=== PATIENT | male | born 1965 | race Two or more races ===

== ENCOUNTER 2020-07-27 07:07 | Inpatient (IN) | payer MEDICAID ==
[~2020-07-27] VITALS: Ht 170.2 cm; Wt 83.9 kg
[2020-07-27] MEDS ORDERED: Metoprolol Tartrate 5mg/5ml Inj IVP ONE (07:15)
--- NOTE | 2020-07-27 07:22 | Emergency Room Report ---
History of Present Illness General Chief Complaint: Chest Pain Source: Patient Present Illness HPI Patient presents with chest pain that began yesterday. In addition he is feeling palpitations. He is previously had metoprolol and aspirin but was told to stop the metoprolol. When he exerts himself he feels palpitations. In addition he has an implanted defibrillator that has been firing. He sees red when this happens. He denies any syncope. He rates the pain 7/10 at this time. He poorly describes the pain in his chest. He denies it being sharp or like a charley horse. The patient tested negative for Covid many months ago. He is uncertain whether he has been in contact with Covid positive people. Patient denies fevers or chills. He occasionally has a cough. Denies sore throat. There is no nausea or vomiting. He has had diarrhea after eating chicken that he said was not good. This was several days ago. The patient's been seen here in the past for alcohol intoxication. Patient denies suicidal or homicidal ideation. No dysuria, abdominal pain, shortness of breath, joint pain, rashes, depression, anxiety, visual changes, dizziness, headache. 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 COVID-19 Screening: Negative COVID-19 COVID-19 Testing Source: unknown Patient History Past Medical History: see triage record Past Surgical History: pacemaker - Defibrillator Social History: Reports: smoking, alcohol use - beer Social History Narrative homeless Reviewed Nursing Documentation: PMH: Agreed; PSxH: Agreed Nursing Documentation-PMH Past Medical History: No Stated History Hx Cardiac Problems: Yes - ICD Hx Hypertension: Yes Hx Diabetes: Yes Review of Systems All Other Systems: negative except mentioned in HPI Physical Exam Vital Signs Date Time Temp Pulse Resp B/P (MAP) Pulse Ox O2 Delivery O2 Flow Rate FiO2 07/27/20 07:03 98.2 140 18 118/54 (75) 95 Room Air Sp02 EP Interpretation: reviewed, normal General Appearance: no apparent distress, GCS 15, other - Disheveled Head: normocephalic, atraumatic Eyes: bilateral eye normal inspection, bilateral eye PERRL, bilateral eye EOMI ENT: moist mucus membranes Neck: supple Respiratory: lungs clear, normal breath sounds Cardiovascular #1: no edema, tachycardia Cardiovascular #2: 2+ radial (R) Gastrointestinal: normal inspection, normal bowel sounds, non tender, no mass, non-distended, overweight Genitourinary: no CVA tenderness Musculoskeletal: back normal, normal range of motion Neurologic: alert, oriented x3, grossly normal Psychiatric: mood/affect normal Skin: no rash, warm/dry Procedures Critical Care Time Critical Care Time Total Critical Care Time: 35 min bedside evaluation and treatment excludes procedures (EKG). Reason for critical care: Atrial fibrillation rapid ventricular response, non- STEMI, hyperkalemia, repeat evaluations Possible complications: hypotension, hypertension, DC, shock, arrhythmias, metabolic acidosis, end organ damage, respiratory failure. Interventions: Metoprolol, potassium, repeat evaluations Course: Patient presented with chest pain and palpitations with atrial fibrillation with rapid ventricular response. Aspirin was administered in the field. Metoprolol given for rate control. Called with elevated troponin. Lovenox administered. Patient reevaluated. Patient states pain is gone with treatment of rapid heart rate and Lovenox. Increase level of care. Contact and discuss with admitting physician. Consultations: nursing staff, EMS, admitting physician Performed by: Dr. Ambrose Tolerated well condition = serious Medical Decision Making Diagnostic Impression: Primary Impression: Atrial fibrillation with RVR Additional Impressions: NSTEMI (non-ST elevated myocardial infarction) Hypokalemia Leukocytosis, unspecified ER Course Patient presents with chest pain and palpitations with firing of his implanted defibrillator. Differential includes atrial fibrillation rapid ventricular response, other arrhythmia, acute myocardial infarction amongst others. Patient evaluated with EKG, chest x-ray and labs. Patient placed on a division chief. Based on EMS EKG the patient has atrial fibrillation with rapid ventricular response and has not been taking metoprolol. Metoprolol is ordered with IV to control the rate. EKG atrial fibrillation rapid ventricular response with rates of 140 and occasional PVC and PAC. No acute injury. Chest x-ray poor inspiration with possible venous congestion. Potassium low. Elevated BNP. Urine tox positive for benzodiazepines. Potassium administered. After metoprolol heart rate 105 with occasional PVCs. Blood pressure 106/76. White blood count elevated 15.7. Called for elevated troponin. Lovenox ordered. Patient states pain gone. 800 Patient clinically improved but needs increased to stepdown unit with positive troponin. Laboratory Tests Test 07/27/20 07:15 07/27/20 08:36 07/27/20 14:15 07/27/20 16:45 White Blood Count 15.7 K/UL (4.8-10.8) H Red Blood Count 4.48 M/UL (4.70-6.10) L Hemoglobin 14.3 G/DL (14.2-18.0) Hematocrit 42.2 % (42.0-52.0) Mean Corpuscular Volume 94 FL (80-99) Mean Corpuscular Hemoglobin 32.0 PG (27.0-31.0) H Mean Corpuscular Hemoglobin Concent 34.0 G/DL (32.0-36.0) Red Cell Distribution Width 13.0 % (11.6-14.8) Platelet Count 78 K/UL (150-450) L Mean Platelet Volume 8.8 FL (6.5-10.1) Neutrophils (%) (Auto) % (45.0-75.0) Lymphocytes (%) (Auto) % (20.0-45.0) Monocytes (%) (Auto) % (1.0-10.0) Eosinophils (%) (Auto) % (0.0-3.0) Basophils (%) (Auto) % (0.0-2.0) Differential Total Cells Counted 100 Neutrophils % (Manual) 74 % (45-75) Lymphocytes % (Manual) 7 % (20-45) L Monocytes % (Manual) 5 % (1-10) Eosinophils % (Manual) 0 % (0-3) Basophils % (Manual) 0 % (0-2) Band Neutrophils 14 % (0-8) H Platelet Estimate Decreased L Platelet Morphology Normal Red Blood Cell Morphology Normal Prothrombin Time 12.7 SEC (9.30-11.50) H Prothrombin Time INR 1.2 (0.9-1.1) H Activated Partial Thromboplast Time 30 SEC (23-33) Sodium Level 132 MMOL/L (136-145) L Potassium Level 3.0 MMOL/L (3.5-5.1) L Chloride Level 97 MMOL/L (98-107) L Carbon Dioxide Level 24 MMOL/L (21-32) Anion Gap 11 mmol/L (5-15) Blood Urea Nitrogen 14 mg/dL (7-18) Creatinine 0.8 MG/DL (0.55-1.30) Estimated Glomerular Filtration Rate > 60 mL/min (>60) Glucose Level 144 MG/DL (74-106) H Calcium Level 8.8 MG/DL (8.5-10.1) Total Bilirubin 1.0 MG/DL (0.2-1.0) Aspartate Amino Transferase (AST) 73 U/L (15-37) H Alanine Aminotransferase (ALT) 38 U/L (12-78) Alkaline Phosphatase 71 U/L (46-116) Total Creatine Kinase 990 U/L (26-308) H Troponin I 2.966 ng/mL (0.000-0.056) 2.806 ng/mL (0.000-0.056) C-Reactive Protein, Quantitative 11.7 mg/dL (0.00-0.90) H Pro-B-Type Natriuretic Peptide 19723 pg/mL (0-125) H Total Protein 7.1 G/DL (6.4-8.2) Albumin 3.1 G/DL (3.4-5.0) L Globulin 4.0 g/dL Albumin/Globulin Ratio 0.8 (1.0-2.7) L Serum Alcohol < 3 mg/dL Urine Color Yellow Urine Appearance Clear Urine pH 6 (4.5-8.0) Urine Specific Stevenson 1.020 (1.005-1.035) Urine Protein 2+ (NEGATIVE) H Urine Glucose (UA) Negative (NEGATIVE) Urine Ketones 3+ (NEGATIVE) H Urine Blood 3+ (NEGATIVE) H Urine Nitrite Negative (NEGATIVE) Urine Bilirubin Negative (NEGATIVE) Urine Urobilinogen 4 MG/DL (0.0-1.0) H Urine Leukocyte Esterase 1+ (NEGATIVE) H Urine RBC 0-2 /HPF (0 - 0) H Urine WBC 0-2 /HPF (0 - 0) Urine Squamous Epithelial Cells Occasional /LPF Urine Bacteria Occasional /HPF (NONE) Urine Hyaline Casts 0-2 /LPF (NONE) H Urine Mucus Few /LPF (NONE/OCC) H Urine Opiates Screen Negative (NEGATIVE) Urine Barbiturates Screen Negative (NEGATIVE) Phencyclidine (PCP) Screen Negative (NEGATIVE) Urine Amphetamines Screen Negative (NEGATIVE) Urine Benzodiazepines Screen Positive (NEGATIVE) H Urine Cocaine Screen Negative (NEGATIVE) Urine Marijuana (THC) Screen Negative (NEGATIVE) Arterial Blood pH 7.405 (7.350-7.450) Arterial Blood Partial Pressure CO2 30.3 mmHg (35.0-45.0) L Arterial Blood Partial Pressure O2 208.2 mmHg (75.0-100.0) H Arterial Blood HCO3 18.6 mmol/L (22.0-26.0) L Arterial Blood Oxygen Saturation 99.3 % (95-100) Arterial Blood Base Excess -4.7 (-2-2) L Ted Test Positive Test 07/27/20 17:00 Activated Partial Thromboplast Time 30 SEC (23-33) D-Dimer > 35.20 mg/L FEU Microbiology Date/Time Source Procedure Growth Status 07/27/20 09:05 Nasopharynx SARS-CoV-2 Antigen (Rapid)([facility]) - Final Complete EKG Diagnostic Results Rate: tachycardiac Rhythm: other - Atrial fibrillation ST Segments: no acute changes Rhythm Strip Diag. Results EP Interpretation: yes Rhythm: other - Atrial fibrillation rapid ventricular response with PAC and PVC Chest X-Ray Diagnostic Results Chest X-Ray Diagnostic Results : Chest X-Ray Ordered: Yes # of Views/Limited/Complete: 1 View Indication: Chest Pain EP Interpretation: Yes Interpretation: no effusion, no pneumothorax, other - poor inspiration/defib, inc mcwilliams Impression: Other Electronically Signed by: Electronically signed by Nato Ambrose MD Last Vital Signs Date Time Temp Pulse Resp B/P (MAP) Pulse Ox O2 Delivery O2 Flow Rate FiO2 07/27/20 17:18 60 28 97 Non-Rebreather 15.0 100 07/27/20 16:33 190/87 07/27/20 16:00 99.0 Status: improved Disposition: ADMITTED INPATIENT Condition: Serious Nato Ambrose MD Jul 27, 2020 07:22
[2020-07-27 07:26] LABS: HEMATOCRIT 42.2 % (42.0-52.0); HEMOGLOBIN 14.3 G/DL (14.2-18.0); MEAN CORPUSCULAR VOLUME 94 FL (80-99); PLATELET COUNT 78 K/UL (150-450); RED BLOOD COUNT 4.48 M/UL (4.70-6.10); WHITE BLOOD COUNT 15.7 K/UL (4.8-10.8)
[2020-07-27 07:41] LABS: ANION GAP 11 mmol/L (5-15); BLOOD UREA NITROGEN 14 mg/dL (7-18); CALCIUM 8.8 MG/DL (8.5-10.1); CARBON DIOXIDE 24 MMOL/L (21-32); CHLORIDE 97 MMOL/L (98-107); CREATININE 0.8 MG/DL (0.55-1.30); SODIUM 132 MMOL/L (136-145)
[2020-07-27 07:50] LABS: INR 1.2 (0.9-1.1)
[2020-07-27 07:53] LABS: ALANINE AMINOTRANSFERASE 38 U/L (12-78); ALBUMIN 3.1 G/DL (3.4-5.0); ALBUMIN/GLOBULIN RATIO 0.8 (1.0-2.7); ALKALINE PHOSPHATASE 71 U/L (46-116); ASPARTATE AMINO TRANSFERASE 73 U/L (15-37); CREATINE KINASE 990 U/L (26-308)
[2020-07-27] MEDS ORDERED: Enoxaparin 80mg Inj SUBQ ONE (08:00)
--- NOTE | 2020-07-27 08:29 | NUR ---
Patient presents to the ER with chest pain and palpitations that began yesterday. Diaphoretic, AAOX4. He currently takes Metoprolol and Aspirin but was recently told to stop taking his Metoprolol. He reports palpitations on exertion. He has an implanted defibrillator that has been firing x 2 days.
[2020-07-27 09:04] VITALS: BP 122/80
[2020-07-27 09:26] LABS: APPEARANCE,URINE CLEAR; BILIRUBIN, URINE NEGATIVE (NEGATIVE); GLUCOSE, URINE (UA) NEGATIVE (NEGATIVE); KETONES,URINE 3+ (NEGATIVE); LEUKOCYTE ESTERASE ,URINE 1+ (NEGATIVE); NITRITE,URINE NEGATIVE (NEGATIVE); PH,URINE 6 (4.5-8.0); PROTEIN,URINE 2+ (NEGATIVE); UROBILINOGEN,URINE 4 MG/DL (0.0-1.0)
[2020-07-27 09:41] LABS: COLOR,URINE YELLOW
[2020-07-27] MEDS ORDERED: ASPIRIN81 MG ORAL (11:05)
--- NOTE | 2020-07-27 11:55 | NUR ---
Report called in to [facility]
--- NOTE | 2020-07-27 12:30 | NUR ---
NURSE NOTES: Received patient from [facility] Waterman. Patient is AO x4. On NC 2L satting at 97%. Vs BP 136/93, HR 120, Temp 98.2, Resp 21. traffic monitor specialist in place showing Afib with RVR. No pain or discomfort noted at this time. Bed in lowest position, locked with side rails x2 up. Call light within reach.
--- NOTE | 2020-07-27 15:31 | Diagnostic Imaging Report ---
Indication: Chest pain Technique: One view of the chest Comparison: 10/24/2015 Findings: Heart is enlarged. There is a left chest AICD. There is bilateral interstitial edema. Impression: Cardiomegaly with evidence of congestive heart failure
[2020-07-27 16:00] VITALS: BP 200/140
[2020-07-27] MEDS ORDERED: Nitroglycerin Subl 0.4mg tab SL PRN (16:15)
[2020-07-27] MEDS ORDERED: Digoxin 0.5mg/2ml Inj IVP SCH (16:15)
[2020-07-27] MEDS: Metoprolol Tartrate 50mg tab ORAL SCH ×2 (16:33→21:00)
[2020-07-27] MEDS ORDERED: Racemic EPINEPHrine 2.25% 0.5ml HHN SCH (17:15)
--- NOTE | 2020-07-27 17:18 | NUR ---
Respiratory note: Called to the room by RN due to PT having increased WOB. PT was found on NRB mask on 15 Lpm / 100% with a saturation of 100%. ABG was drawn. PO2 was in the 200 range. Tried to place PT on 14 L 55% venturi but PT continued to desaturate down to 87%. Placed Pt on NRB mask. At this time stridor was noticed and requested charge nurse to order Racemic Epi. Racemic was given via HHN. Stridor improved but Pt continued with increased WOB and is now vomiting. Saturation is WNL. HR:120. RR: 25 Will continue to monitor.
[2020-07-27] MEDS: Solu-MEDROL 125mg Inj IVP SCH ×2 (17:24→22:59)
--- NOTE | 2020-07-27 17:30 | NUR ---
NURSE NOTES: patient noted with elevated BP 200/140 and elevated heart rate 170. AUDREY Huggins notified with new order of hydralazine IVP and Dig IVP.
--- NOTE | 2020-07-27 17:41 | Cardiology Report ---
APPROVED REPORT EKG Measurement Heart [id number] <Conclusion> Atrial fibrillation with rapid ventricular response with premature ventricular or aberrantly conducted complexes Nonspecific T wave abnormality Abnormal ECG
--- NOTE | 2020-07-27 17:44 | History and Physical Report ---
DATE OF ADMISSION: 07/27/2020 HISTORY OF PRESENT ILLNESS: The patient is a 54-year-old obese male came probably straight and was short of breath and was found tachycardic. Also, alcohol intoxication, hypokalemia, and non-STEMI. The patient's heart rate is still high and he also is short of breath. He is sitting in the bed and critically sick. I am ordering ABG. PAST MEDICAL HISTORY: Significant for the patient taking aspirin, does not remember his medical history. MEDICATIONS: Currently, he is on aspirin, Tylenol, Plavix, digoxin, Lasix, hydralazine, losartan, methylprednisone, metoprolol, nitroglycerin. ALLERGIES: NKA. FAMILY HISTORY: Noncontributory. SOCIAL HISTORY: the patient is most likely homeless. PHYSICAL EXAMINATION: VITAL SIGNS: Blood pressure is high 190/87, pulse 150. HEENT: Eyes are open. NECK: Supple. CHEST: Bilaterally scattered wheezing and crackles. CARDIOVASCULAR: Irregular rhythm, tachycardia. ABDOMEN: Soft. Positive bowel sounds. Nontender. EXTREMITIES: No edema. GENITOURINARY: Deferred. LABORATORY DATA: White count 16,000, hemoglobin 14, hematocrit 42, platelets 78,000. Chemistry panel, sodium 132, potassium 3, BUN 14, creatinine 0.8. Troponin is 2.966 to 2.806. BNP was 2008. C-reactive protein 11.7. Chest x-ray showing cardiomegaly with evidence of congestive heart failure. ASSESSMENT: 1. Chest pain. 2. CHF. 3. Hypertension. 4. Tachycardia. PLAN: We will admit the patient in [facility]. Continue metoprolol. Continue Plavix, aspirin, Lipitor, and losartan. Give him Solu-Medrol and added Lasix. Added digoxin. Consider Pulmonary and Cardiology consult. Also ordering ABG. Hang Luis M.D. DR: LIAT JOB#: [id number] CC:
--- NOTE | 2020-07-27 17:50 | NUR ---
NURSE NOTES: Patient heart rate still 170 and BP went down to 160/70 at this time, Arlen Bess notified with new stat ekg order and Lasix IVP. 20 mg IV push cardizem ordered by Arlen bess.
[2020-07-27] MEDS ORDERED: dilTIAZem HCl 25mg/5ml Inj IVP SCH ×2 (18:15→18:45)
--- NOTE | 2020-07-27 18:20 | NUR ---
NURSE NOTES: Patient d-dimer noted at >35.20. Stat CTA was ordered by AUDREY bess, noted and carried out.
[2020-07-27] MEDS ORDERED: Omnipaque 350 100ml vial INJ PRN (18:45)
--- NOTE | 2020-07-27 19:30 | NUR ---
NURSE NOTES: Rn received report from Victor Manuel RIVERS. Patient in bed resting. Patient states that he doesnt feel well. patient is having bouts of n/v. RN advised provider and no orders given. Patient vitals stable at this time. RN will continue to monitor.
--- NOTE | 2020-07-27 19:36 | NUR ---
NURSE HAND-OFF REPORT: Important Events on Shift:Patient heart rate in the 180's and bp's >180 Patient Status: Stable Diet: 2gm low NA diet Pending Orders: NA Pending Results/Labs:NA Pending notification:NA Latest Vital Signs: Temperature 99.0 , Pulse 145 , B/P 150 /60 , Respiratory Rate 28 , O2 SAT 97 , Nasal Cannula, O2 Flow Rate 15.0 . Vital Sign Comment: Stable EKG Rhythm: Atrial Fibrillation Rhythm change?: N MD Notified?: Leena Huggins MD Response: Latest Ryan Fall Score: 35 Fall Risk: Medium Risk Safety Measures: Call light Within Reach, Bed Alarm Zone 1, Side Rails Side Rails x2, Bed position Low and Locked. Fall Precautions: Yellow Socks Report given to TITA Talley.
--- NOTE | 2020-07-27 19:50 | Diagnostic Imaging Report ---
EXAM: CT Angiography Chest With Intravenous Contrast CLINICAL HISTORY: PE TECHNIQUE: Axial computed tomographic angiography images of the chest with intravenous contrast. CTDI is 71.3 mGy and DLP is 395.7 mGy-cm. One or more of the following dose reduction techniques were used: automated exposure control, adjustment of the mA and/or kV according to patient size, use of iterative reconstruction technique. MIP reconstructed images were created and reviewed. COMPARISON: Chest x-ray of 07/27/2020. FINDINGS: Pulmonary arteries: No central pulmonary embolism. Peripheral branch of the pulmonary arteries are unremarkable. Aorta: Thoracic aorta is unremarkable. No thoracic aortic aneurysm. Lungs: Evaluation of the pulmonary parenchyma reveals patchy confluent airspace disease worrisome for atypical pneumonia such as Covid-19 pneumonia. No mass. Pleural space: Unremarkable. No significant effusion. No pneumothorax. Heart: Cardiomegaly. No significant pericardial effusion. No evidence of RV dysfunction. Thyroid: The thyroid gland is unremarkable. Bones/joints: No acute fracture. No dislocation. Soft tissues: Unremarkable. Lymph nodes: Unremarkable. No enlarged lymph nodes. Liver: Fatty liver. IMPRESSION: 1. No pulmonary embolism. 2. Cardiomegaly. 3. Patchy airspace disease bilaterally suggestive of atypical pneumonia such as Covid-19 pneumonia.
[2020-07-27 20:00] VITALS: BP 142/78
--- NOTE | 2020-07-27 20:45 | NUR ---
NURSE NOTES: RN received CTA results to rule out PE. Rn notified Arlen VENTURA with cardiology of results. patient negative for PE. Orders given to start Amiodarone gtt. for afib control transfer to ICU and give x1 dose of Lasix 40mg IVP. Orders readback. RN will continue to monitor.
[2020-07-27] MEDS: Losartan 50mg tab ORAL SCH (21:00)
[2020-07-27] MEDS: Enoxaparin 80mg Inj SUBQ SCH (21:24)
--- NOTE | 2020-07-27 21:45 | NUR ---
NURSE HAND-OFF REPORT: Patient being transferred to ICU for AMIO GTT for afib/rate control. Orders given and excuted. Report to Beverly. Latest Vital Signs: Temperature 97.2 , Pulse 111 , B/P 142 /78 , Respiratory Rate 32 , O2 SAT 92 , Nasal Cannula, O2 Flow Rate 15.0 . Vital Sign Comment: EKG Rhythm: Atrial Fibrillation Rhythm change?: N Notified?: Leena Huggins MD Response: Latest Ryan Fall Score: 35 Fall Risk: Medium Risk Safety Measures: Call light Within Reach, Bed Alarm Zone 1, Side Rails Side Rails x2, Bed position Low and Locked. Fall Precautions: Patient Fall Education Report given to Beverly .
[2020-07-27 22:00] VITALS: BP 98/68
[2020-07-27] MEDS ORDERED: Amiodarone 900 MG in D5W 500ml 482 ML IV SCH (22:00)
--- NOTE | 2020-07-27 22:00 | NUR ---
NURSE NOTES: Received patient in bed with eyes open, AOx4 A-fib on the monitor with HR 109. NRB 15L at this time, Sats 95%, Patient noted to be tachypneic, When asked patient denies any SOB. Left FA IV Saline lock. Patient complaining of nausea, denies any chest pain at this time. Uses urinal to void and bed hugo upon request. Bedside teaching done about the importance of staying in bed and using the call light. Bed in lowest position, side rails up x2, bed alarm on. Will continue with plan of care.
--- NOTE | 2020-07-27 22:15 | NUR ---
NURSE NOTES: Called and spoke with MD Huggins. Notified her patient is now in the ICU. HR 103-109 A-fib SBP 98/56. MD ordered to hold Amio Bolus and Amio gtt at this time. Updated MD 2100 Cardiac Meds have been on hold, Patient not on bi-pap at this time due to Nausea and vomiting. 3rd Troponin processing no result, Asked her if she wants to be called with next troponin level she said no. Ordered to keep patient in ICU for overnight monitoring.
--- NOTE | 2020-07-27 22:29 | Consultation ---
History of Present Illness General Chief Complaint: Chest Pain Present Illness HPI 54 yo male admitted for SOB and found to be in afib with RVR, NSTEMI with troponin elevation. Pt is homeless and has a hx of substance abuse, smoking, ETOH. No documented hx of UT or PCI, pt not on blood thinners, unclear if he's had afib in the past. BNP severely elevated. Pt c/o N/V, SOB, denies acute chest pain. Started on Bb, nitro, ASA, Lovenox. Transferred to ICU due to respiratory failure and worsening clinical picture. Allergies: Coded Allergies: No Known Allergies (Unverified , 10/24/15) Medication History Scheduled Aspirin* (Aspirin*), 81 MG ORAL DAILY, (Reported) Patient History Limited by: medical condition History Provided By: Medical Record Healthcare decision maker Resuscitation status Advanced Directive on File Physical Exam Last 24 Hour Vital Signs Date Time Temp Pulse Resp B/P (MAP) Pulse Ox O2 Delivery O2 Flow Rate FiO2 07/27/20 20:00 97.2 111 32 142/78 (99) 92 07/27/20 20:00 15.0 07/27/20 20:00 Non-Rebreather 15.0 07/27/20 18:49 145 150/60 07/27/20 18:14 160 160/70 07/27/20 17:18 60 28 97 Non-Rebreather 15.0 100 07/27/20 17:18 97 Non-Rebreather 15.0 100 07/27/20 17:18 60 25 94 Non-Rebreather 15.0 100 60 28 97 07/27/20 16:33 150 190/87 07/27/20 16:24 200/140 07/27/20 16:18 170 07/27/20 16:18 200/140 07/27/20 16:00 Non-Rebreather 15.0 07/27/20 16:00 99.0 160 25 200/140 (160) 99 07/27/20 16:00 160 07/27/20 16:00 15.0 07/27/20 14:12 91 16 98 Nasal Cannula 3.0 32 07/27/20 14:12 98 Nasal Cannula 3.0 32 07/27/20 13:03 Nasal Cannula 2.0 07/27/20 11:13 99.4 24 122/80 98 Nasal Cannula 2.0 98 2/16/21 09:04 99.4 24 122/80 98 Nasal Cannula 07/27/20 09:04 112 24 Nasal Cannula 2.0 98 07/27/20 07:30 112 122/80 07/27/20 07:03 98.2 140 18 118/54 (75) 95 Room Air Laboratory Tests Test 07/27/20 07:15 07/27/20 08:36 07/27/20 14:15 07/27/20 16:45 White Blood Count 15.7 K/UL (4.8-10.8) H Red Blood Count 4.48 M/UL (4.70-6.10) L Hemoglobin 14.3 G/DL (14.2-18.0) Hematocrit 42.2 % (42.0-52.0) Mean Corpuscular Volume 94 FL (80-99) Mean Corpuscular Hemoglobin 32.0 PG (27.0-31.0) H Mean Corpuscular Hemoglobin Concent 34.0 G/DL (32.0-36.0) Red Cell Distribution Width 13.0 % (11.6-14.8) Platelet Count 78 K/UL (150-450) L Mean Platelet Volume 8.8 FL (6.5-10.1) Neutrophils (%) (Auto) % (45.0-75.0) Lymphocytes (%) (Auto) % (20.0-45.0) Monocytes (%) (Auto) % (1.0-10.0) Eosinophils (%) (Auto) % (0.0-3.0) Basophils (%) (Auto) % (0.0-2.0) Differential Total Cells Counted 100 Neutrophils % (Manual) 74 % (45-75) Lymphocytes % (Manual) 7 % (20-45) L Monocytes % (Manual) 5 % (1-10) Eosinophils % (Manual) 0 % (0-3) Basophils % (Manual) 0 % (0-2) Band Neutrophils 14 % (0-8) H Platelet Estimate Decreased L Platelet Morphology Normal Red Blood Cell Morphology Normal Prothrombin Time 12.7 SEC (9.30-11.50) H Prothromb Time International Ratio 1.2 (0.9-1.1) H Activated Partial Thromboplast Time 30 SEC (23-33) Sodium Level 132 MMOL/L (136-145) L Potassium Level 3.0 MMOL/L (3.5-5.1) L Chloride Level 97 MMOL/L (98-107) L Carbon Dioxide Level 24 MMOL/L (21-32) Anion Gap 11 mmol/L (5-15) Blood Urea Nitrogen 14 mg/dL (7-18) Creatinine 0.8 MG/DL (0.55-1.30) Estimat Glomerular Filtration Rate > 60 mL/min (>60) Glucose Level 144 MG/DL (74-106) H Calcium Level 8.8 MG/DL (8.5-10.1) Total Bilirubin 1.0 MG/DL (0.2-1.0) Aspartate Amino Transf (AST/SGOT) 73 U/L (15-37) H Alanine Aminotransferase (ALT/SGPT) 38 U/L (12-78) Alkaline Phosphatase 71 U/L (46-116) Total Creatine Kinase 990 U/L (26-308) H Troponin I 2.966 ng/mL (0.000-0.056) 2.806 ng/mL (0.000-0.056) C-Reactive Protein, Quantitative 11.7 mg/dL (0.00-0.90) H Pro-B-Type Natriuretic Peptide 56597 pg/mL (0-125) H Total Protein 7.1 G/DL (6.4-8.2) Albumin 3.1 G/DL (3.4-5.0) L Globulin 4.0 g/dL Albumin/Globulin Ratio 0.8 (1.0-2.7) L Serum Alcohol < 3 mg/dL Urine Color Yellow Urine Appearance Clear Urine pH 6 (4.5-8.0) Urine Specific Bl[place] 1.020 (1.005-1.035) Urine Protein 2+ (NEGATIVE) H Urine Glucose (UA) Negative (NEGATIVE) Urine Ketones 3+ (NEGATIVE) H Urine Blood 3+ (NEGATIVE) H Urine Nitrite Negative (NEGATIVE) Urine Bilirubin Negative (NEGATIVE) Urine Urobilinogen 4 MG/DL (0.0-1.0) H Urine Leukocyte Esterase 1+ (NEGATIVE) H Urine RBC 0-2 /HPF (0 - 0) H Urine WBC 0-2 /HPF (0 - 0) Urine Squamous Epithelial Cells Occasional /LPF Urine Bacteria Occasional /HPF (NONE) Urine Hyaline Casts 0-2 /LPF (NONE) H Urine Mucus Few /LPF (NONE/OCC) H Urine Opiates Screen Negative (NEGATIVE) Urine Barbiturates Screen Negative (NEGATIVE) Phencyclidine (PCP) Screen Negative (NEGATIVE) Urine Amphetamines Screen Negative (NEGATIVE) Urine Benzodiazepines Screen Positive (NEGATIVE) H Urine Cocaine Screen Negative (NEGATIVE) Urine Marijuana (THC) Screen Negative (NEGATIVE) Arterial Blood pH 7.405 (7.350-7.450) Arterial Blood Partial Pressure CO2 30.3 mmHg (35.0-45.0) L Arterial Blood Partial Pressure O2 208.2 mmHg (75.0-100.0) H Arterial Blood HCO3 18.6 mmol/L (22.0-26.0) L Arterial Blood Oxygen Saturation 99.3 % (95-100) Arterial Blood Base Excess -4.7 (-2-2) L Ted Test Positive Test 07/27/20 17:00 07/27/20 21:20 Activated Partial Thromboplast Time 30 SEC (23-33) D-Dimer > 35.20 mg/L FEU Troponin I 3.301 ng/mL (0.000-0.056) Microbiology Date/Time Source Procedure Growth Status 07/27/20 09:05 Nasopharynx SARS-CoV-2 Antigen (Rapid)([facility]) - Final Complete Height (Feet): 5 Height (Inches): 7.00 Weight (Pounds): 185 Medications Current Medications Medications (Trade) Dose Ordered Sig/Evan Route PRN Reason Start Time Stop Time Status Last Admin Dose Admin Acetaminophen (Tylenol) 650 mg Q4H PRN ORAL Mild Pain (Pain Scale 1-3) 07/27/20 13:30 08/26/20 13:29 Amiodarone HCl 900 mg/Dextrose 500 ml @ 0 mls/hr Q24H IV 07/27/20 22:00 07/28/20 21:59 Aspirin (ASA) 81 mg DAILY ORAL 07/28/20 09:00 09/11/20 08:59 Atorvastatin Calcium (Lipitor) 80 mg BEDTIME ORAL 07/27/20 21:00 10/25/20 20:59 Chlordiazepoxide (Librium) 25 mg EVERY 8 HOURS ORAL 07/27/20 22:00 08/03/20 21:59 Clopidogrel Bisulfate (Plavix) 75 mg DAILY ORAL 07/28/20 09:00 08/27/20 08:59 Enoxaparin Sodium (Lovenox) 80 mg EVERY 12 HOURS SUBQ 07/27/20 21:00 10/25/20 20:59 07/27/20 21:24 Furosemide (Lasix) 40 mg DAILY IV 07/27/20 16:15 08/26/20 16:14 07/27/20 16:24 Hydralazine HCl (Apresoline) 20 mg Q6H PRN IV For High Blood Pressure 07/27/20 16:15 10/25/20 16:14 07/27/20 16:18 Iohexol (Omnipaque 350 100ml) 100 ml NOW PRN INJ Radiology Procedure 07/27/20 18:45 07/29/20 18:44 Losartan Potassium (Cozaar) 50 mg EVERY 12 HOURS ORAL 07/27/20 21:00 08/26/20 20:59 Methylprednisolone Sodium Succinate (Solu-MEDROL) 80 mg EVERY 8 HOURS IVP 07/27/20 16:45 10/25/20 16:44 07/27/20 17:24 Metoprolol Tartrate (Lopressor) 50 mg Q12HR ORAL 07/27/20 16:15 10/25/20 16:14 07/27/20 16:33 Nitroglycerin (Ntg) 0.4 mg Q5M PRN SL Prn Chest Pain 07/27/20 16:15 08/26/20 16:14 07/27/20 16:24 Thiamine HCl (Vitamin B1) 100 mg DAILY ORAL 07/28/20 09:00 08/27/20 08:59 Assessment/Plan Status Narrative 1. NSTEMI with troponin elevation Echo pending ASA and Lovenox 2. Afib with RVR Bb and digoxin for rate and rhythm control 3. Respiratory failure - on NRB BiPAP pending as needed 4. CHF with fluid overload IV Lasix for diuresis BNP elevated echo pending 5. HTN and hypertensive urgency Losartan 6. Hx of substance abuse 7. Psychiatric disorder and homelessness 8. N/V Trend troponin, started Bb for rate control, echo pending. Rate responded to Bb, digoxin, and Cardizem IV push. Lovenox for AC in the setting of afib and acute NSTEMI. Denies chest pain at this time. Further recs to follow clinical progress. Arlen Huggins PA-C Jul 27, 2020 22:29
--- NOTE | 2020-07-27 22:40 | NUR ---
NURSE NOTES: Patient noted to have Episode of Loose BM. Assisted patient with bed hugo. Patient complaining of abdominal discomfort and Nausea
--- NOTE | 2020-07-27 22:44 | NUR ---
NURSE NOTES: Called and spoke with MD Luis, Informed him patient is complaining of Nausea at this time. Ordered Zofran 4mg Q4hr for nausea. Orders read back and confirmed by
[2020-07-27] MEDS: Atorvastatin 80mg tab ORAL SCH (22:59)
[2020-07-27] MEDS: chlordiazePOXIDE 25mg Cap ORAL SCH (22:59)
--- NOTE | 2020-07-27 22:59 | NUR ---
NURSE NOTES: Patient able to tolerate PO meds at this time. Zofran given for Nausea. Instructed patient to call and use call light if he feels nauseas again or needs bedpan.
[2020-07-27 23:00] VITALS: BP 117/65
[2020-07-28] VITALS (23 sets, daily range): BP systolic 87–144; BP diastolic 49–90
--- NOTE | 2020-07-28 00:30 | NUR ---
NURSE NOTES: Patient Sleeping at this time, Controlled A-fib on the monitor. Patient noted to self reposition when walking into the room. Denies any nausea at this time. Bed in lowest position, side rails upx3.
--- NOTE | 2020-07-28 02:00 | NUR ---
NURSE NOTES: Patient noted to desaturate. NRB off. Bedside teaching done about the importance of keeping mask on. Patient asked for cup of water. Encouraged patient to turn and repositioned.
--- NOTE | 2020-07-28 04:30 | NUR ---
NURSE NOTES: Patient titrated off NRB. Now on 14L, 55% now. Sats 97%
[2020-07-28 04:32] LABS: HEMATOCRIT 42.4 % (42.0-52.0); MEAN CORPUSCULAR VOLUME 95 FL (80-99); PLATELET COUNT 65 K/UL (150-450); RED BLOOD COUNT 4.44 M/UL (4.70-6.10); RED CELL DISTRIBUTION WIDTH 13.1 % (11.6-14.8)
[2020-07-28 04:54] LABS: ANION GAP 10 mmol/L (5-15); BLOOD UREA NITROGEN 15 mg/dL (7-18); CALCIUM 8.7 MG/DL (8.5-10.1); CARBON DIOXIDE 25 MMOL/L (21-32); CHLORIDE 98 MMOL/L (98-107); CREATININE 0.8 MG/DL (0.55-1.30); POTASSIUM 3.6 MMOL/L (3.5-5.1); SODIUM 133 MMOL/L (136-145)
--- NOTE | 2020-07-28 05:30 | NUR ---
NURSE NOTES: Patient awake at this time. Morning meds given. Patient continues to be SOB when moving in bed. Denies any chest pain, nausea or vomiting. Venturi mask now at 45%.
[2020-07-28] MEDS: chlordiazePOXIDE 25mg Cap ORAL SCH ×3 (05:34→21:55)
[2020-07-28] MEDS: Solu-MEDROL 125mg Inj IVP SCH (05:34)
--- NOTE | 2020-07-28 06:23 | NUR ---
CASE MANAGEMENT:REVIEW 54 YR OLD MALE BIBA FROM STREET CC: CHEST PAIN. AICD HAS BEEN FIRING PMH: AICD SI: AFIB W/RVR. NSTEMI 98.2 140 18 118/54 95% ON RA WBC+15.7 PLT-78 K-3.0 TCK+990 BNP+99320 TROPONIN(+) 2.966-2.806-3.301 IS: IV METOPROLOL IV DIGOXIN IV CARDIZEM KCL PO LOVENOX SQ CXR EKG : TO ICU
--- NOTE | 2020-07-28 07:27 | NUR ---
NURSE HAND-OFF REPORT: Latest Vital Signs: Temperature 98.1 , Pulse 115 , B/P 144 /70 , Respiratory Rate 28 , O2 SAT 97 , Nasal Cannula, O2 Flow Rate 14.0 . Vital Sign Comment: EKG Rhythm: Atrial Fibrillation Rhythm change?: N Notified?: Leena Huggins MD Response: Latest Ryan Fall Score: 35 Fall Risk: Medium Risk Safety Measures: Call light Within Reach, Bed Alarm Zone 1, Side Rails Side Rails x2, Bed position Low and Locked. Fall Precautions: Patient Fall Education Report given to Payal RIVERS.
--- NOTE | 2020-07-28 07:28 | NUR ---
NURSE NOTES: Received patient in bed with eyes open, AOx4 A-fib on the monitor with HR 119. On venturi mask FiO2 45%, Sats 99%, Patient noted to be tachypneic, When asked patient denies any SOB. Left FA IV Saline lock. Patient complaining of nausea, denies any chest pain at this time. Uses urinal to void and bed hugo upon request. Bedside teaching done about the importance of staying in bed and using the call light. Bed in lowest position, side rails up x2, bed alarm on. Will continue with plan of care.
--- NOTE | 2020-07-28 08:18 | NUR ---
NURSE NOTES: 2D echo is being done at bedside.
[2020-07-28] MEDS: Enoxaparin 80mg Inj SUBQ SCH ×2 (09:00→20:47)
[2020-07-28] MEDS: Aspirin Baby 81mg ORAL SCH (09:00)
[2020-07-28] MEDS ORDERED: Digoxin 0.5mg/2ml Inj IVP SCH ×2 (09:15→17:48)
[2020-07-28] MEDS: Losartan 50mg tab ORAL SCH ×2 (09:28→21:00)
[2020-07-28] MEDS: Thiamine 100mg tab ORAL SCH (09:28)
--- NOTE | 2020-07-28 09:39 | General Progress Note ---
Subjective Constitutional: Reports: fever, malaise HEENT: Reports: no symptoms Cardiovascular: Reports: palpitations Respiratory: Reports: orthopnea, shortness of breath Gastrointestinal/Abdominal: Reports: no symptoms Allergies: Coded Allergies: No Known Allergies (Unverified , 10/24/15) Subjective doing better more awake Objective Last 24 Hour Vital Signs Date Time Temp Pulse Resp B/P (MAP) Pulse Ox O2 Delivery O2 Flow Rate FiO2 07/28/20 09:28 139/75 07/28/20 08:00 Venturi Mask 07/28/20 08:00 129 29 139/75 (96) 92 07/28/20 07:30 124 07/28/20 07:00 119 30 127/69 (88) 96 07/28/20 06:00 115 28 144/70 (94) 97 07/28/20 05:00 109 28 144/77 (99) 99 07/28/20 04:40 97 Venturi Mask 14.0 55 07/28/20 04:00 Non-Rebreather 15.0 07/28/20 04:00 15.0 07/28/20 04:00 98.1 111 25 130/89 (103) 98 07/28/20 04:00 96 07/28/20 03:00 113 28 123/61 (81) 97 07/28/20 02:00 103 24 118/78 (91) 94 07/28/20 01:00 101 22 87/49 (62) 97 07/28/20 00:00 15.0 07/28/20 00:00 98.2 103 25 119/60 (79) 98 07/28/20 00:00 Non-Rebreather 15.0 07/28/20 00:00 96 07/27/20 23:00 105 24 117/65 (82) 95 07/27/20 22:00 98.1 106 32 98/68 (78) 99 07/27/20 21:49 102 07/27/20 21:00 88/49 07/27/20 21:00 97 88/49 07/27/20 20:00 97.2 111 32 142/78 (99) 92 07/27/20 20:00 15.0 07/27/20 20:00 Non-Rebreather 15.0 07/27/20 18:49 145 150/60 07/27/20 18:14 160 160/70 07/27/20 17:18 60 28 97 Non-Rebreather 15.0 100 07/27/20 17:18 97 Non-Rebreather 15.0 100 07/27/20 17:18 60 25 94 Non-Rebreather 15.0 100 60 28 97 07/27/20 16:33 150 190/87 07/27/20 16:24 200/140 07/27/20 16:18 170 07/27/20 16:18 200/140 07/27/20 16:00 Non-Rebreather 15.0 07/27/20 16:00 99.0 160 25 200/140 (160) 99 07/27/20 16:00 160 07/27/20 16:00 15.0 07/27/20 14:12 91 16 98 Nasal Cannula 3.0 32 07/27/20 14:12 98 Nasal Cannula 3.0 32 07/27/20 13:03 Nasal Cannula 2.0 07/27/20 11:13 99.4 24 122/80 98 Nasal Cannula 2.0 98 Intake and Output 07/27/20 07/28/20 19:00 07:00 Intake Total 2600 ml 720 ml Output Total 940 ml Balance 2600 ml -220 ml Intake Oral 600 ml 720 ml IV Total 2000 ml Output Urine Total 640 ml Stool Total 300 ml # Bowel Movements 2 Laboratory Tests 07/27/20 14:15: Troponin I 2.806H 07/27/20 16:45: Arterial Blood pH 7.405, Arterial Blood Partial Pressure CO2 30.3L, Arterial Blood Partial Pressure O2 208.2H, Arterial Blood HCO3 18.6L, Arterial Blood Oxygen Saturation 99.3, Arterial Blood Base Excess -4.7L, Ted Test Positive 07/27/20 17:00: Activated Partial Thromboplast Time 30, D-Dimer > 35.20H 07/27/20 21:20: Troponin I 3.301H 07/28/20 04:00: White Blood Count 14.0H, Red Blood Count 4.44L, Hemoglobin 14.0L, Hematocrit 42.4, Mean Corpuscular Volume 95, Mean Corpuscular Hemoglobin 31.6H, Mean Corpuscular Hemoglobin Concent 33.1, Red Cell Distribution Width 13.1, Platelet Count 65L, Mean Platelet Volume 10.9H, Neutrophils (%) (Auto) , Lymphocytes (%) (Auto) , Monocytes (%) (Auto) , Eosinophils (%) (Auto) , Basophils (%) (Auto) , Differential Total Cells Counted 100, Neutrophils % (Manual) 68, Lymphocytes % (Manual) 3L, Monocytes % (Manual) 2, Eosinophils % (Manual) 0, Basophils % (Manual) 0, Band Neutrophils 27H, Platelet Estimate DecreasedL, Platelet Morphology Normal, Red Blood Cell Morphology Normal, Sodium Level 133L, Potassium Level 3.6, Chloride Level 98, Carbon Dioxide Level 25, Anion Gap 10, Blood Urea Nitrogen 15, Creatinine 0.8, Estimat Glomerular Filtration Rate > 60, Glucose Level 146H, Calcium Level 8.7, Digoxin Level [Pending] Height (Feet): 5 Height (Inches): 7.00 Weight (Pounds): 185 General Appearance: alert EENT: PERRL/EOMI Neck: supple Cardiovascular: tachycardia Respiratory/Chest: crackles/rales Abdomen: non tender, soft Extremities: non-tender Assessment/Plan Assessment/Plan: sob afib pna chf etoh abused pna iv abx iv sterids librium admited in icu Kadeem Luis MD Jul 28, 2020 09:39
[2020-07-28] MEDS: Metoprolol Tartrate 50mg tab ORAL SCH ×4 (10:10→23:40)
--- NOTE | 2020-07-28 10:15 | NUR ---
NURSE NOTES: Dr. Guajardo at bedside. Made aware that Dr. Luis ordered covid-19 PCR test, and that patient is now to be in PUI isolation.
--- NOTE | 2020-07-28 11:14 | Consultation ---
DATE OF CONSULTATION: 07/28/2020 INFECTIOUS DISEASES CONSULTATION CONSULTING PHYSICIAN: Tuan Guajardo MD REFERRING PHYSICIAN: Kadeem Luis MD REASON FOR CONSULTATION: Pneumonia. HISTORY OF PRESENT ILLNESS: This is a 54-year-old gentleman with history of hypertension who comes in with shortness of breath along with fevers and cough. He was found to have atrial fibrillation with rapid ventricular rate and pneumonia. An Infectious Diseases consultation has been obtained for antibiotics. PAST MEDICAL HISTORY: History of hypertension. SOCIAL HISTORY: He does not smoke. He drinks alcohol. No history of drug use. FAMILY HISTORY: Noncontributory. REVIEW OF SYSTEMS: RESPIRATORY: He has fever and chills. He has cough. He has shortness of breath. No chest pain. CARDIAC: No chest pain. No palpitation. No dizziness. No syncope. GASTROINTESTINAL: He has nausea. No vomiting. No abdominal pain or diarrhea. MUSCULOSKELETAL: He has headache and body aches. MEDICATIONS: As an inpatient, he is on metoprolol, digoxin, thiamine, Plavix, aspirin, Zofran, amiodarone, lithium, Lovenox, Lipitor, losartan, Solu-Medrol, nitroglycerin, Lasix, hydralazine, Tylenol. ALLERGIES: No known drug allergies. PHYSICAL EXAMINATION: VITAL SIGNS: Temperature 99.5, T-max of 99.5, pulse 145, respiratory rate 28, blood pressure 138/71, O2 saturation of 100% on 15 liters of oxygen. Examination deferred due to possibility of COVID-19. LABORATORY AND DIAGNOSTIC DATA: White count 14, hemoglobin 14, hematocrit 42.4, MCV 95, platelet count of 65 with neutrophils of 68%. Sodium 133, potassium 3.6, chloride 98, bicarb 25, BUN 15, creatinine 0.8, glucose 146, calcium 8.7. Total bilirubin 1, AST 73, ALT 38, alkaline phosphatase 71. CK of 990. Troponin 3.3. C-reactive protein 11.7. Beta-natriuretic peptide 20,008. Total protein 7.1, albumin 3.1. UA is showing 0 to 2 white cells. COVID-19 rapid test is negative. Chest x-ray is showing cardiomegaly without evidence of congestive heart failure. CT chest angiogram, no pulmonary embolism, patchy airspace disease bilaterally suggestive of atypical pneumonia, suggest COVID-19 pneumonia, cardiomegaly noted. ASSESSMENT: This is a 54-year-old gentleman with history of hypertension who comes in with fever, cough, shortness of breath and is found to have. 1. Pneumonia, we would like to rule out COVID-19 pneumonia as a possibility. His COVID-19 rapid test is negative. 2. Myocardial infarction. 3. Congestive heart failure. 4. Hypertension. PLAN: 1. Continue Solu-Medrol. 2. Awaiting COVID-19 PCR. 3. We will start the patient on ceftriaxone. 4. We will follow up cultures and adjust antibiotics accordingly. 5. Continue isolation. I would like to thank, Dr. Luis for this consultation. Tuan Guajardo M.D. DR: Beata JOB#: [id number] CC: Hang Luis M.D.; Fax#: [phone] MTDD
--- NOTE | 2020-07-28 11:15 | NUR ---
NURSE NOTES: Covid-19 PCR swab done and sent to lab.
[2020-07-28] MEDS: cefTRIAXone 1 GM in D5W 55 ML IVPB SCH (11:32)
--- NOTE | 2020-07-28 11:59 | Consultation ---
DATE OF CONSULTATION: 07/28/2020 PULMONARY CONSULTATION CONSULTING PHYSICIAN: Hernandez Sheridan MD. HISTORY OF PRESENT ILLNESS: This is a 54-year-old male with a history of alcohol abuse, who came to the hospital with palpitations. He has a history of an implantable defibrillator. He describes chest pain. He states that he was positive for COVID many months ago, but recently is not sure. Denies fevers or chills. The patient underwent imaging studies including a CT angio, which showed patchy airspace disease bilaterally suspicious for COVID pneumonia. There was no pulmonary embolism. X-ray chest confirmed AICD as well as cardiomegaly and evidence for interstitial edema. The patient at time states he is feeling better. He has been on nonrebreather mask. Currently, this is being weaned down to nasal oxygen. PAST HISTORY: AICD, alcohol abuse, hypertension, CAD. HOME MEDICATIONS: Tylenol, Plavix, digoxin, Lasix, hydralazine, losartan, metoprolol. ALLERGIES: None. SOCIAL HISTORY: He is a homeless. Denies current tobacco use. Admits to alcohol use. PHYSICAL EXAMINATION: GENERAL: Reveals a 54-year-old male. HEENT: Unremarkable. CHEST: Shows few basilar crackles. HEART: Heart sounds normal. ABDOMEN: Soft. EXTREMITIES: There is no edema. VITAL SIGNS: Blood pressure is 130/70, heart rate 140, respirations are 18, O2 saturation 97% on Ventimask, T-max 99.5. LABORATORY DATA: Lab testing shows white count 15.7, hemoglobin of 14. Potassium of 3.6, creatinine is normal. Toxicology is positive for benzodiazepines. Coags and notable D-dimer of 35. Urinalysis negative. Imaging, discussed above. IMPRESSION: 1. High D-dimer. 2. No evidence of pulmonary embolism. 3. AICD. 4. CHF. 5. CAD. DISCUSSION: Admit to the hospital. Agree with admission and care. The patient needs rate control with digoxin. Cardiology is following. Beta-anay has also been started. The patient has also received amiodarone. Continue medications. We will start Lovenox full dose, diurese. I do not see an indication for steroids. We will discontinue. Continue supportive care and p.r.n. medications. We will initiate broad-spectrum antibiotics, given leukocytosis. Currently, he is on Rocephin. Hernandez Sheridan M.D. DR: JACK JOB#: [id number] CC:
--- NOTE | 2020-07-28 12:48 | Consultation ---
History of Present Illness General Date patient seen: Jul 28, 2020 Reason for Hospitalization: Chest Pain Present Illness HPI 54M presented with chest pain currently admitted to [facility] for care ill appearing noted to have cellulitis and wound on lower extremity surgery called to evaluate. patient seen, chart reviewed, patient examined. Allergies: Coded Allergies: No Known Allergies (Unverified , 10/24/15) COVID-19 Screening Contact w/high risk pt: No Experienced COVID-19 symptoms?: No Medication History Scheduled Aspirin* (Aspirin*), 81 MG ORAL DAILY, (Reported) Patient History Limited by: medical condition History Provided By: Patient, Medical Record Healthcare decision maker Resuscitation status Advanced Directive on File Past Medical/Surgical History Past Medical/Surgical History: (1) Alcohol intoxication (2) Hypokalemia (3) Leukocytosis, unspecified (4) NSTEMI (non-ST elevated myocardial infarction) (5) Atrial fibrillation with RVR Review of Systems Review of Symptoms General ROS: no weight loss or fever Psychological ROS: no depression or mood changes, no memory loss Ophthalmic ROS: no visual changes or eye irritation ENT ROS: no nasal congestion, hearing loss, dizziness Allergy and Immunology ROS: no allergic symptoms or urticaria Hematological and Lymphatic ROS: no swollen glands, unusual bleeding or bruising Endocrine ROS: no polyuria, polydipsia, weight changes, temperature intolerance Respiratory ROS: no cough, shortness of breath, or wheezing Cardiovascular ROS: no chest pain or dyspnea on exertion Gastrointestinal ROS: denies abdominal pain, bright red blood in stool. Musculoskeletal ROS: no myalgias or arthralgias Neurological ROS: no TIA or stroke symptoms Dermatological ROS: no new or changing skin lesions, rashes or pruritis limited given medical condition Physical Exam Physical Exam Sp02 EP Interpretation: reviewed, normal General Appearance: no apparent distress, GCS 15, other - Disheveled Head: normocephalic, atraumatic Eyes: bilateral eye normal inspection, bilateral eye PERRL, bilateral eye EOMI ENT: moist mucus membranes Neck: supple Respiratory: lungs clear, normal breath sounds Cardiovascular #1: no edema, tachycardia Cardiovascular #2: 2+ radial (R) Gastrointestinal: normal inspection, normal bowel sounds, non tender, no mass, non-distended, overweight Genitourinary: no CVA tenderness Musculoskeletal: back normal, normal range of motion Neurologic: alert, oriented x3, grossly normal Psychiatric: mood/affect normal Skin: LE cellulitis Last 24 Hour Vital Signs Date Time Temp Pulse Resp B/P (MAP) Pulse Ox O2 Delivery O2 Flow Rate FiO2 07/28/20 12:00 99.1 112 28 134/78 (96) 100 07/28/20 12:00 Venturi Mask 07/28/20 11:35 109 07/28/20 11:00 119 31 113/71 (85) 100 07/28/20 10:10 145 138/71 07/28/20 10:10 145 07/28/20 10:00 145 28 138/71 (93) 100 07/28/20 09:28 139/75 07/28/20 09:00 99.5 134 128/82 (97) 97 07/28/20 08:00 Venturi Mask 07/28/20 08:00 129 29 139/75 (96) 92 07/28/20 07:30 124 07/28/20 07:00 119 30 127/69 (88) 96 07/28/20 06:00 115 28 144/70 (94) 97 07/28/20 05:00 109 28 144/77 (99) 99 07/28/20 04:40 97 Venturi Mask 14.0 55 07/28/20 04:00 Non-Rebreather 15.0 07/28/20 04:00 15.0 07/28/20 04:00 98.1 111 25 130/89 (103) 98 07/28/20 04:00 96 07/28/20 03:00 113 28 123/61 (81) 97 07/28/20 02:00 103 24 118/78 (91) 94 07/28/20 01:00 101 22 87/49 (62) 97 07/28/20 00:00 15.0 07/28/20 00:00 98.2 103 25 119/60 (79) 98 07/28/20 00:00 Non-Rebreather 15.0 07/28/20 00:00 96 07/27/20 23:00 105 24 117/65 (82) 95 07/27/20 22:00 98.1 106 32 98/68 (78) 99 07/27/20 21:49 102 07/27/20 21:00 88/49 07/27/20 21:00 97 88/49 07/27/20 20:00 97.2 111 32 142/78 (99) 92 07/27/20 20:00 15.0 07/27/20 20:00 Non-Rebreather 15.0 07/27/20 18:49 145 150/60 07/27/20 18:14 160 160/70 07/27/20 17:18 60 28 97 Non-Rebreather 15.0 100 07/27/20 17:18 97 Non-Rebreather 15.0 100 07/27/20 17:18 60 25 94 Non-Rebreather 15.0 100 60 28 97 07/27/20 16:33 150 190/87 07/27/20 16:24 200/140 07/27/20 16:18 170 07/27/20 16:18 200/140 07/27/20 16:00 Non-Rebreather 15.0 07/27/20 16:00 99.0 160 25 200/140 (160) 99 07/27/20 16:00 160 07/27/20 16:00 15.0 07/27/20 14:12 91 16 98 Nasal Cannula 3.0 32 07/27/20 14:12 98 Nasal Cannula 3.0 32 07/27/20 13:03 Nasal Cannula 2.0 Intake and Output 07/27/20 07/28/20 19:00 07:00 Intake Total 2600 ml 720 ml Output Total 940 ml Balance 2600 ml -220 ml Intake Oral 600 ml 720 ml IV Total 2000 ml Output Urine Total 640 ml Stool Total 300 ml # Bowel Movements 2 Laboratory Tests Test 07/27/20 14:15 07/27/20 16:45 07/27/20 17:00 07/27/20 21:20 Troponin I 2.806 ng/mL (0.000-0.056) 3.301 ng/mL (0.000-0.056) Arterial Blood pH 7.405 (7.350-7.450) Arterial Blood Partial Pressure CO2 30.3 mmHg (35.0-45.0) L Arterial Blood Partial Pressure O2 208.2 mmHg (75.0-100.0) H Arterial Blood HCO3 18.6 mmol/L (22.0-26.0) L Arterial Blood Oxygen Saturation 99.3 % (95-100) Arterial Blood Base Excess -4.7 (-2-2) L Ted Test Positive Activated Partial Thromboplast Time 30 SEC (23-33) D-Dimer > 35.20 mg/L FEU Test 07/28/20 04:00 07/28/20 09:51 White Blood Count 14.0 K/UL (4.8-10.8) H Red Blood Count 4.44 M/UL (4.70-6.10) L Hemoglobin 14.0 G/DL (14.2-18.0) L Hematocrit 42.4 % (42.0-52.0) Mean Corpuscular Volume 95 FL (80-99) Mean Corpuscular Hemoglobin 31.6 PG (27.0-31.0) H Mean Corpuscular Hemoglobin Concent 33.1 G/DL (32.0-36.0) Red Cell Distribution Width 13.1 % (11.6-14.8) Platelet Count 65 K/UL (150-450) L Mean Platelet Volume 10.9 FL (6.5-10.1) H Neutrophils (%) (Auto) % (45.0-75.0) Lymphocytes (%) (Auto) % (20.0-45.0) Monocytes (%) (Auto) % (1.0-10.0) Eosinophils (%) (Auto) % (0.0-3.0) Basophils (%) (Auto) % (0.0-2.0) Differential Total Cells Counted 100 Neutrophils % (Manual) 68 % (45-75) Lymphocytes % (Manual) 3 % (20-45) L Monocytes % (Manual) 2 % (1-10) Eosinophils % (Manual) 0 % (0-3) Basophils % (Manual) 0 % (0-2) Band Neutrophils 27 % (0-8) H Platelet Estimate Decreased L Platelet Morphology Normal Red Blood Cell Morphology Normal Sodium Level 133 MMOL/L (136-145) L Potassium Level 3.6 MMOL/L (3.5-5.1) Chloride Level 98 MMOL/L (98-107) Carbon Dioxide Level 25 MMOL/L (21-32) Anion Gap 10 mmol/L (5-15) Blood Urea Nitrogen 15 mg/dL (7-18) Creatinine 0.8 MG/DL (0.55-1.30) Estimat Glomerular Filtration Rate > 60 mL/min (>60) Glucose Level 146 MG/DL (74-106) H Calcium Level 8.7 MG/DL (8.5-10.1) Digoxin Level 0.6 NG/ML (0.5-2.0) Arterial Blood pH 7.511 (7.350-7.450) Arterial Blood Partial Pressure CO2 31.9 mmHg (35.0-45.0) L Arterial Blood Partial Pressure O2 78.2 mmHg (75.0-100.0) Arterial Blood HCO3 24.9 mmol/L (22.0-26.0) Arterial Blood Oxygen Saturation 95.9 % (95-100) Arterial Blood Base Excess 2.6 (-2-2) H Ted Test Positive Height (Feet): 5 Height (Inches): 7.00 Weight (Pounds): 185 Medications Current Medications Medications (Trade) Dose Ordered Sig/Evan Route PRN Reason Start Time Stop Time Status Last Admin Dose Admin Acetaminophen (Tylenol) 650 mg Q4H PRN ORAL Mild Pain (Pain Scale 1-3) 07/27/20 13:30 08/26/20 13:29 07/28/20 09:28 Amiodarone HCl 900 mg/Dextrose 500 ml @ 0 mls/hr Q24H IV 07/27/20 22:00 07/28/20 21:59 Aspirin (ASA) 81 mg DAILY ORAL 07/28/20 09:00 09/11/20 08:59 Atorvastatin Calcium (Lipitor) 80 mg BEDTIME ORAL 07/27/20 21:00 10/25/20 20:59 07/27/20 22:59 Ceftriaxone Sodium 1 gm/ Dextrose 55 ml @ 110 mls/hr Q24H IVPB 07/28/20 11:00 08/04/20 10:59 07/28/20 11:32 Chlordiazepoxide (Librium) 25 mg EVERY 8 HOURS ORAL 07/27/20 22:00 08/03/20 21:59 07/28/20 05:34 Clopidogrel Bisulfate (Plavix) 75 mg DAILY ORAL 07/28/20 09:00 08/27/20 08:59 Enoxaparin Sodium (Lovenox) 80 mg EVERY 12 HOURS SUBQ 07/27/20 21:00 10/25/20 20:59 07/27/20 21:24 Furosemide (Lasix) 40 mg DAILY IV 07/27/20 16:15 08/26/20 16:14 07/28/20 09:27 Hydralazine HCl (Apresoline) 20 mg Q6H PRN IV For High Blood Pressure 07/27/20 16:15 10/25/20 16:14 07/27/20 16:18 Iohexol (Omnipaque 350 100ml) 100 ml NOW PRN INJ Radiology Procedure 07/27/20 18:45 07/29/20 18:44 Losartan Potassium (Cozaar) 50 mg EVERY 12 HOURS ORAL 07/27/20 21:00 08/26/20 20:59 07/28/20 09:28 Metoprolol Tartrate (Lopressor) 50 mg EVERY 6 HOURS ORAL 07/28/20 09:15 10/25/20 16:14 07/28/20 10:10 Nitroglycerin (Ntg) 0.4 mg Q5M PRN SL Prn Chest Pain 07/27/20 16:15 08/26/20 16:14 07/27/20 16:24 Ondansetron HCl (Zofran) 4 mg Q4H PRN IVP Nausea & Vomiting 07/27/20 22:45 08/26/20 22:44 07/27/20 22:59 Thiamine HCl (Vitamin B1) 100 mg DAILY ORAL 07/28/20 09:00 08/27/20 08:59 07/28/20 09:28 Assessment/Plan Problem List: (1) Cellulitis of lower extremity Assessment & Plan: Pt presented on admission with wound of unknown etiology R 1st metatarsal. Pt's hygiene is grossly neglected. To properly assess wound,pt's feet required extensive scrubbing to remove caked on dirt both feet. erythema and edema noted mild cellulitis Base of wound dorso/lateral R 1st metatarsalis darío with loose edges(L)2.3cm x (W)4cm. No exudate noted. NO erythema,swelling or changes in skin temp periwound. Second laceration noted to plantar-base of R 1st metatarsal(L)0.3cm x (W)1.2cm. Base of wound is darío. Edges are adherent to base of wound. No erythema swelling or changes in skin temp periwound. L foot 3rd and 4th metatarsals noted to have small ulcers that are dry . No surrounding erythema noted. Tx.Plan: Apply Betadine to dorsal and plantar wounds R 1st metatarsal. Cover with Gauze and wrap with Kerlix. Change every 3 days and prn. Swab ulcers dorsal L 3rd and 4th Metatarsals with Betadine Daily. Leave open to Air. turn q2h off load pressure nutritional optimization ICD Codes: L03.119 - Cellulitis of unspecified part of limb SNOMED: 784887994 (2) Hypokalemia ICD Codes: E87.6 - Hypokalemia SNOMED: 13985992 (3) Leukocytosis, unspecified ICD Codes: D72.829 - Elevated white blood cell count, unspecified SNOMED: 902172426, 755841611 (4) NSTEMI (non-ST elevated myocardial infarction) ICD Codes: I21.4 - Non-ST elevation (NSTEMI) myocardial infarction SNOMED: 01088153 (5) Atrial fibrillation with RVR ICD Codes: I48.91 - Unspecified atrial fibrillation SNOMED: 080640381105543 (6) Alcohol intoxication ICD Codes: F10.129 - Alcohol abuse with intoxication, unspecified SNOMED: 27224114 Dino Angelo Jul 28, 2020 12:48
--- NOTE | 2020-07-28 13:12 | NUR ---
PRACTICE NURSE NOTE SW met w/ pt and completed the psychosocial assessment. PT resides w/ his friends at [address] [place] [id number]. PT is currently unemployed. PT is single, and has no children. Pt does not have AD/POA. UDS positive for Benzo. Pt reports hx of ETOH and tobacco use. PT denies current substance abuse. UDS positive for Benzo. PT is ambulatory w/o DME and has been independent w/ ADLs. PT denies having mental health issue. Pt remains full code. Emergency contact is his cousin, Jan Celeste [phone].
--- NOTE | 2020-07-28 13:50 | NUR ---
NURSE NOTES:WOUND CARE NOTES:Pt presented on admission with wound of unknown etiology R 1st metatarsal.Pt's hygiene is grossly neglected. To properly assess wound,pt's feet required extensive scrubbing to remove caked on dirt both feet. Base of wound dorso/lateral R 1st metatarsalis darío with loose edges(L)2.3cm x (W)4cm. No exudate noted. NO erythema,swelling or changes in skin temp periwound. Second laceration noted to plantar-base of R 1st metatarsal(L)0.3cm x (W)1.2cm. Base of wound is darío. Edges are adherent to base of wound. No erythema swelling or changes in skin temp periwound. L foot 3rd and 4th metatarsals noted to have small ulcers that are dry . No surrounding erythema noted. Tx.Plan: Apply Betadine to dorsal and plantar wounds R 1st metatarsal. Cover with Gauze and wrap with Kerlix. Change every 3 days and prn. Swab ulcers dorsal L 3rd and 4th Metatarsals with Betadine Daily. Leave open to Air.
--- NOTE | 2020-07-28 19:25 | NUR ---
NURSE HAND-OFF REPORT: Latest Vital Signs: Temperature 99.1 , Pulse 111 , B/P 142 /90 , Respiratory Rate 30 , O2 SAT 97 , Venturi Mask FiO2 45%.. Vital Sign Comment: EKG Rhythm: Atrial Fibrillation Rhythm change?: N Latest Ryan Fall Score: 35 Fall Risk: Medium Risk Safety Measures: Call light Within Reach, Bed Alarm Zone 1, Side Rails Side Rails x2, Bed position Low and Locked. Fall Precautions: Patient Fall Education Report given to Mica Lozoya RN.
--- NOTE | 2020-07-28 19:56 | NUR ---
NURSE NOTES: received report from roberto rn pt wake and alert on vm 45% fio2 o2 sat 94-98 % NO C/O SOB HR 105-115 A-FIB NO C/O CHEST PAIN VOIDING FREELY REPOSITION
--- NOTE | 2020-07-28 20:08 | Cardiology Progress Note ---
Assessment/Plan Status: progressing Status Narrative 1. NSTEMI with troponin elevation 3.3 ASA, Plavix, and Lovenox 2. Afib with RVR Bb and digoxin for rate and rhythm control 3. Multifocal PNA and respiratory failure - improved, was on NRB now NC Leukocytosis h/o recent COVID-19, repeat swab pending 4. CHF acute on chronic systolic on diastolic HF, reduced EF 40%, s/p AICD IV Lasix for diuresis BNP severely elevated 5. HTN and hypertensive urgency improved on multiple antihypertensives 6. Hx of substance abuse 7. Psychiatric disorder and homelessness 8. N/V 9. Thrombocytopenia CTA chest negative for PE. Acute NSTEMI will be managed medically, pt is not a good candidate for intervention at this time. Aggressive diuresis as tolerated, rate and rhythm control with Bb and digoxin. Pt has AICD which will be interrogated once repeat covid swab is done. Platelets are low, recommend evaluation by hematology due to need for antiplatelet therapy and AC in the setting of NSTEMI. Subjective ROS Limited/Unobtainable: Yes Respiratory: Reports: SOB at rest Gastrointestinal/Abdominal: Reports: poor appetite Subjective Appears improved, denies chest pain Objective Last 24 Hour Vital Signs Date Time Temp Pulse Resp B/P (MAP) Pulse Ox O2 Delivery O2 Flow Rate FiO2 07/28/20 19:00 111 30 142/90 (107) 97 07/28/20 18:14 117 07/28/20 18:00 117 31 122/77 (92) 97 07/28/20 17:07 119 123/83 07/28/20 17:00 119 24 123/83 (96) 98 07/28/20 16:00 108 28 125/82 (96) 100 07/28/20 16:00 Venturi Mask 07/28/20 15:52 106 07/28/20 15:00 104 31 127/70 (89) 100 07/28/20 14:00 110 27 107/68 (81) 93 07/28/20 13:11 113 122/82 07/28/20 13:00 113 31 122/82 (95) 100 07/28/20 12:00 99.1 112 28 134/78 (96) 100 07/28/20 12:00 Venturi Mask 07/28/20 11:35 109 07/28/20 11:00 119 31 113/71 (85) 100 07/28/20 10:10 145 138/71 07/28/20 10:10 145 07/28/20 10:00 145 28 138/71 (93) 100 07/28/20 09:28 139/75 07/28/20 09:00 99.5 134 128/82 (97) 97 07/28/20 08:00 Venturi Mask 07/28/20 08:00 129 29 139/75 (96) 92 07/28/20 07:30 124 07/28/20 07:00 119 30 127/69 (88) 96 07/28/20 06:00 115 28 144/70 (94) 97 07/28/20 05:00 109 28 144/77 (99) 99 07/28/20 04:40 97 Venturi Mask 14.0 55 07/28/20 04:00 Non-Rebreather 15.0 07/28/20 04:00 15.0 07/28/20 04:00 98.1 111 25 130/89 (103) 98 07/28/20 04:00 96 07/28/20 03:00 113 28 123/61 (81) 97 07/28/20 02:00 103 24 118/78 (91) 94 07/28/20 01:00 101 22 87/49 (62) 97 07/28/20 00:00 15.0 07/28/20 00:00 98.2 103 25 119/60 (79) 98 07/28/20 00:00 Non-Rebreather 15.0 07/28/20 00:00 96 07/27/20 23:00 105 24 117/65 (82) 95 07/27/20 22:00 98.1 106 32 98/68 (78) 99 07/27/20 21:49 102 07/27/20 21:00 88/49 07/27/20 21:00 97 88/49 07/27/20 20:00 97.2 111 32 142/78 (99) 92 07/27/20 20:00 15.0 07/27/20 20:00 Non-Rebreather 15.0 General Appearance: no apparent distress EENT: PERRL/EOMI Neck: supple, JVD Rhythm: Afib Cardiovascular: tachycardia Respiratory/Chest: no accessory muscle use, crackles/rales Abdomen: soft Extremities: moderate edema Neurologic: alert Intake and Output 07/27/20 07/28/20 19:00 07:00 Intake Total 2600 ml 720 ml Output Total 940 ml Balance 2600 ml -220 ml Intake Oral 600 ml 720 ml IV Total 2000 ml Output Urine Total 640 ml Stool Total 300 ml # Bowel Movements 2 Laboratory Tests Test 07/27/20 21:20 07/28/20 04:00 07/28/20 09:51 Troponin I 3.301 ng/mL (0.000-0.056) White Blood Count 14.0 K/UL (4.8-10.8) H Red Blood Count 4.44 M/UL (4.70-6.10) L Hemoglobin 14.0 G/DL (14.2-18.0) L Hematocrit 42.4 % (42.0-52.0) Mean Corpuscular Volume 95 FL (80-99) Mean Corpuscular Hemoglobin 31.6 PG (27.0-31.0) H Mean Corpuscular Hemoglobin Concent 33.1 G/DL (32.0-36.0) Red Cell Distribution Width 13.1 % (11.6-14.8) Platelet Count 65 K/UL (150-450) L Mean Platelet Volume 10.9 FL (6.5-10.1) H Neutrophils (%) (Auto) % (45.0-75.0) Lymphocytes (%) (Auto) % (20.0-45.0) Monocytes (%) (Auto) % (1.0-10.0) Eosinophils (%) (Auto) % (0.0-3.0) Basophils (%) (Auto) % (0.0-2.0) Differential Total Cells Counted 100 Neutrophils % (Manual) 68 % (45-75) Lymphocytes % (Manual) 3 % (20-45) L Monocytes % (Manual) 2 % (1-10) Eosinophils % (Manual) 0 % (0-3) Basophils % (Manual) 0 % (0-2) Band Neutrophils 27 % (0-8) H Platelet Estimate Decreased L Platelet Morphology Normal Red Blood Cell Morphology Normal Sodium Level 133 MMOL/L (136-145) L Potassium Level 3.6 MMOL/L (3.5-5.1) Chloride Level 98 MMOL/L (98-107) Carbon Dioxide Level 25 MMOL/L (21-32) Anion Gap 10 mmol/L (5-15) Blood Urea Nitrogen 15 mg/dL (7-18) Creatinine 0.8 MG/DL (0.55-1.30) Estimat Glomerular Filtration Rate > 60 mL/min (>60) Glucose Level 146 MG/DL (74-106) H Calcium Level 8.7 MG/DL (8.5-10.1) Digoxin Level 0.6 NG/ML (0.5-2.0) Arterial Blood pH 7.511 (7.350-7.450) Arterial Blood Partial Pressure CO2 31.9 mmHg (35.0-45.0) L Arterial Blood Partial Pressure O2 78.2 mmHg (75.0-100.0) Arterial Blood HCO3 24.9 mmol/L (22.0-26.0) Arterial Blood Oxygen Saturation 95.9 % (95-100) Arterial Blood Base Excess 2.6 (-2-2) H Ted Test Positive Microbiology Date/Time Source Procedure Growth Status 07/27/20 09:05 Nasopharynx SARS-CoV-2 Antigen (Rapid)([facility]) - Final Complete Arlen Huggins PA-C Jul 28, 2020 20:08
[2020-07-28] MEDS: Atorvastatin 80mg tab ORAL SCH (20:46)
--- NOTE | 2020-07-28 22:00 | NUR ---
NURSE NOTES: NURSE HAND-OFF REPORT: Latest Vital Signs: Temperature 98.9 , Pulse 99 , B/P 119 /60 , Respiratory Rate 28 , O2 SAT 100 , Nasal Cannula, O2 Flow Rate 14.0 . Vital Sign Comment: EKG Rhythm: Atrial Fibrillation Rhythm change?: N Notified?: Leena Huggins MD Response: Latest Ryan Fall Score: 35 Fall Risk: Medium Risk Safety Measures: Call light Within Reach, Bed Alarm Zone 1, Side Rails Side Rails x2, Bed position Low and Locked. Fall Precautions: Patient Fall Education Report given to suzanna bowman using sbar.
--- NOTE | 2020-07-28 23:45 | NUR ---
NURSE NOTES: Received patient from [facility] from ICU. pt in bed A/Ox3-4 A-fib on the monitor with HR 100. On venturi mask FiO2 45%, Saturating 99%, Respiration even and unlabored. Denies any SOB. Left FA IV #22 and Rt FA #[address] Using urinal to void. Call light w/in reach. Bed in lowest position, side rails up x2 and bed alarm engaged. In no apparent distress.
[2020-07-29] VITALS: BP 145/85
--- NOTE | 2020-07-29 02:00 | NUR ---
NURSE NOTES: Sleeping but easily awakened. Respiration even and unlabored. Denies pain or discomfort. St(100-106) on cardiac cath rn. In no apparent distress. VSS. Afebrile
[2020-07-29 04:00] VITALS: BP 149/66
[2020-07-29 05:38] LABS: HEMATOCRIT 43.4 % (42.0-52.0); HEMOGLOBIN 14.2 G/DL (14.2-18.0); MEAN CORPUSCULAR VOLUME 94 FL (80-99); PLATELET COUNT 50 K/UL (150-450); RED CELL DISTRIBUTION WIDTH 13.3 % (11.6-14.8); WHITE BLOOD COUNT 12.3 K/UL (4.8-10.8)
[2020-07-29] MEDS: Metoprolol Tartrate 50mg tab ORAL SCH ×3 (05:57→16:43)
[2020-07-29] MEDS: chlordiazePOXIDE 25mg Cap ORAL SCH ×3 (05:57→21:04)
--- NOTE | 2020-07-29 06:00 | NUR ---
NURSE NOTES: Remain sleeping. Easily awakened. Respirations even and unlabored. No distress noted.
[2020-07-29 06:13] LABS: ALANINE AMINOTRANSFERASE 52 U/L (12-78); ALBUMIN 2.3 G/DL (3.4-5.0); ALBUMIN/GLOBULIN RATIO 0.6 (1.0-2.7); ALKALINE PHOSPHATASE 46 U/L (46-116); ANION GAP 8 mmol/L (5-15); ASPARTATE AMINO TRANSFERASE 113 U/L (15-37); BILIRUBIN,TOTAL 1.2 MG/DL (0.2-1.0); BLOOD UREA NITROGEN 22 mg/dL (7-18); CALCIUM 8.5 MG/DL (8.5-10.1); CARBON DIOXIDE 26 MMOL/L (21-32); CHLORIDE 98 MMOL/L (98-107); CREATININE 0.8 MG/DL (0.55-1.30); POTASSIUM 3.3 MMOL/L (3.5-5.1); SODIUM 132 MMOL/L (136-145)
[2020-07-29 06:19] LABS: INR 1.1 (0.9-1.1)
[2020-07-29 06:30] LABS: BILIRUBIN,DIRECT 0.3 MG/DL (0.0-0.3)
[2020-07-29 08:00] VITALS: BP 153/78
[2020-07-29] MEDS: Thiamine 100mg tab ORAL SCH (08:57)
[2020-07-29] MEDS: Aspirin Baby 81mg ORAL SCH (08:57)
[2020-07-29] MEDS: Losartan 50mg tab ORAL SCH ×2 (08:57→21:04)
[2020-07-29] MEDS: Enoxaparin 80mg Inj SUBQ SCH ×2 (08:59→21:00)
--- NOTE | 2020-07-29 10:17 | Surgery Progress Note ---
Surgery Progress Note Subjective Additional Comments no acute events labs noted exam stable dressings going well wbc improved trop noted Objective Last 24 Hour Vital Signs Date Time Temp Pulse Resp B/P (MAP) Pulse Ox O2 Delivery O2 Flow Rate FiO2 07/29/20 08:57 153/78 07/29/20 05:57 102 145/85 07/29/20 04:00 102 07/29/20 04:00 97.8 59 28 149/66 (93) 97 07/29/20 03:50 Venturi Mask 07/29/20 00:00 100 24 145/85 (105) 99 07/29/20 00:00 Venturi Mask 07/28/20 23:40 99 119/60 07/28/20 22:00 99 28 119/60 (79) 100 07/28/20 21:00 106/79 07/28/20 21:00 99 28 106/79 (88) 98 07/28/20 20:00 106 07/28/20 20:00 Venturi Mask 07/28/20 20:00 98.9 110 33 116/68 (84) 94 07/28/20 19:00 111 30 142/90 (107) 97 07/28/20 18:14 117 07/28/20 18:00 117 31 122/77 (92) 97 07/28/20 17:07 119 123/83 07/28/20 17:00 119 24 123/83 (96) 98 07/28/20 16:00 108 28 125/82 (96) 100 07/28/20 16:00 Venturi Mask 07/28/20 15:52 106 07/28/20 15:00 104 31 127/70 (89) 100 07/28/20 14:00 110 27 107/68 (81) 93 07/28/20 13:11 113 122/82 07/28/20 13:00 113 31 122/82 (95) 100 07/28/20 12:00 99.1 112 28 134/78 (96) 100 07/28/20 12:00 Venturi Mask 07/28/20 11:35 109 07/28/20 11:00 119 31 113/71 (85) 100 I&O Intake and Output 07/28/20 07/29/20 19:00 07:00 Intake Total 1015 ml 480 ml Output Total 810 ml 1300 ml Balance 205 ml -820 ml Intake Oral 960 ml 480 ml IV Total 55 ml Output Urine Total 810 ml 800 ml Stool Total 500 ml # Voids 1 # Bowel Movements 1 Dressing: dry Cardiovascular: RSR Respiratory: decreased breath sounds Abdomen: soft, non-tender, present bowel sounds, non-distended Extremities: edema, no tenderness, no cyanosis Laboratory Tests Test 07/29/20 04:35 07/29/20 08:53 White Blood Count 12.3 K/UL (4.8-10.8) H Red Blood Count 4.60 M/UL (4.70-6.10) L Hemoglobin 14.2 G/DL (14.2-18.0) Hematocrit 43.4 % (42.0-52.0) Mean Corpuscular Volume 94 FL (80-99) Mean Corpuscular Hemoglobin 30.8 PG (27.0-31.0) Mean Corpuscular Hemoglobin Concent 32.7 G/DL (32.0-36.0) Red Cell Distribution Width 13.3 % (11.6-14.8) Platelet Count 50 K/UL (150-450) L Mean Platelet Volume 13.7 FL (6.5-10.1) H Neutrophils (%) (Auto) % (45.0-75.0) Lymphocytes (%) (Auto) % (20.0-45.0) Monocytes (%) (Auto) % (1.0-10.0) Eosinophils (%) (Auto) % (0.0-3.0) Basophils (%) (Auto) % (0.0-2.0) Neutrophils % (Manual) Pending Lymphocytes % (Manual) Pending Platelet Estimate Pending Platelet Morphology Pending Prothrombin Time 11.7 SEC (9.30-11.50) H Prothromb Time International Ratio 1.1 (0.9-1.1) Sodium Level 132 MMOL/L (136-145) L Potassium Level 3.3 MMOL/L (3.5-5.1) L Chloride Level 98 MMOL/L (98-107) Carbon Dioxide Level 26 MMOL/L (21-32) Anion Gap 8 mmol/L (5-15) Blood Urea Nitrogen 22 mg/dL (7-18) H Creatinine 0.8 MG/DL (0.55-1.30) Estimat Glomerular Filtration Rate > 60 mL/min (>60) Glucose Level 143 MG/DL (74-106) H Calcium Level 8.5 MG/DL (8.5-10.1) Total Bilirubin 1.2 MG/DL (0.2-1.0) H Direct Bilirubin 0.3 MG/DL (0.0-0.3) Aspartate Amino Transf (AST/SGOT) 113 U/L (15-37) H Alanine Aminotransferase (ALT/SGPT) 52 U/L (12-78) Alkaline Phosphatase 46 U/L (46-116) Troponin I 2.099 ng/mL (0.000-0.056) Pro-B-Type Natriuretic Peptide 4327 pg/mL (0-125) H Total Protein 6.4 G/DL (6.4-8.2) Albumin 2.3 G/DL (3.4-5.0) L Globulin 4.1 g/dL Albumin/Globulin Ratio 0.6 (1.0-2.7) L Arterial Blood pH 7.491 (7.350-7.450) Arterial Blood Partial Pressure CO2 35.8 mmHg (35.0-45.0) Arterial Blood Partial Pressure O2 87.9 mmHg (75.0-100.0) Arterial Blood HCO3 26.7 mmol/L (22.0-26.0) H Arterial Blood Oxygen Saturation 96.8 % (95-100) Arterial Blood Base Excess 3.6 (-2-2) H Ted Test Positive Plan Problems: (1) Cellulitis of lower extremity Assessment & Plan: Pt presented on admission with wound of unknown etiology R 1st metatarsal. Pt's hygiene is grossly neglected. To properly assess wound,pt's feet required extensive scrubbing to remove caked on dirt both feet. erythema and edema noted mild cellulitis Base of wound dorso/lateral R 1st metatarsalis darío with loose edges(L)2.3cm x (W)4cm. No exudate noted. NO erythema,swelling or changes in skin temp periwound. Second laceration noted to plantar-base of R 1st metatarsal(L)0.3cm x (W)1.2cm. Base of wound is darío. Edges are adherent to base of wound. No erythema swelling or changes in skin temp periwound. L foot 3rd and 4th metatarsals noted to have small ulcers that are dry . No surrounding erythema noted. Tx.Plan: Apply Betadine to dorsal and plantar wounds R 1st metatarsal. Cover with Gauze and wrap with Kerlix. Change every 3 days and prn. Swab ulcers dorsal L 3rd and 4th Metatarsals with Betadine Daily. Leave open to Air. turn q2h off load pressure nutritional optimization (2) Hypokalemia (3) Leukocytosis, unspecified (4) NSTEMI (non-ST elevated myocardial infarction) (5) Atrial fibrillation with RVR (6) Alcohol intoxication Dino Angelo Jul 29, 2020 10:17
--- NOTE | 2020-07-29 11:24 | Pulmonology Progress Note ---
Subjective ROS Limited/Unobtainable: Yes Constitutional: Reports: no symptoms HEENT: Repors: no symptoms Respiratory: Reports: shortness of breath Cardiovascular: Reports: no symptoms Gastrointestinal/Abdominal: Reports: no symptoms Genitourinary: Reports: no symptoms Allergies: Coded Allergies: No Known Allergies (Unverified , 10/24/15) Objective Last 24 Hour Vital Signs Date Time Temp Pulse Resp B/P (MAP) Pulse Ox O2 Delivery O2 Flow Rate FiO2 07/29/20 08:57 153/78 07/29/20 05:57 102 145/85 07/29/20 04:00 102 07/29/20 04:00 97.8 59 28 149/66 (93) 97 07/29/20 03:50 Venturi Mask 07/29/20 00:00 100 24 145/85 (105) 99 07/29/20 00:00 Venturi Mask 07/28/20 23:40 99 119/60 07/28/20 22:00 99 28 119/60 (79) 100 07/28/20 21:00 106/79 07/28/20 21:00 99 28 106/79 (88) 98 07/28/20 20:00 106 07/28/20 20:00 Venturi Mask 07/28/20 20:00 98.9 110 33 116/68 (84) 94 07/28/20 19:00 111 30 142/90 (107) 97 07/28/20 18:14 117 07/28/20 18:00 117 31 122/77 (92) 97 07/28/20 17:07 119 123/83 07/28/20 17:00 119 24 123/83 (96) 98 07/28/20 16:00 108 28 125/82 (96) 100 07/28/20 16:00 Venturi Mask 07/28/20 15:52 106 07/28/20 15:00 104 31 127/70 (89) 100 07/28/20 14:00 110 27 107/68 (81) 93 07/28/20 13:11 113 122/82 07/28/20 13:00 113 31 122/82 (95) 100 07/28/20 12:00 99.1 112 28 134/78 (96) 100 07/28/20 12:00 Venturi Mask 07/28/20 11:35 109 Intake and Output 07/28/20 07/29/20 18:59 06:59 Intake Total 1015 ml 480 ml Output Total 810 ml 1300 ml Balance 205 ml -820 ml Intake Oral 960 ml 480 ml IV Total 55 ml Output Urine Total 810 ml 800 ml Stool Total 500 ml # Voids 1 # Bowel Movements 1 General Appearance: no acute distress HEENT: atraumatic Respiratory: crackles/rales Cardiovascular: regular rhythm, tachycardia Abdomen: soft, non tender Microbiology Date/Time Source Procedure Growth Status 07/27/20 09:05 Nasopharynx SARS-CoV-2 Antigen (Rapid)([facility]) - Final Complete Laboratory Tests 07/29/20 04:35: White Blood Count 12.3H, Red Blood Count 4.60L, Hemoglobin 14.2, Hematocrit 43.4, Mean Corpuscular Volume 94, Mean Corpuscular Hemoglobin 30.8, Mean Corpuscular Hemoglobin Concent 32.7, Red Cell Distribution Width 13.3, Platelet Count 50L, Mean Platelet Volume 13.7H, Neutrophils (%) (Auto) , Lymphocytes (%) (Auto) , Monocytes (%) (Auto) , Eosinophils (%) (Auto) , Basophils (%) (Auto) , Differential Total Cells Counted 100, Neutrophils % (Manual) 79H, Lymphocytes % (Manual) 5L, Monocytes % (Manual) 8, Eosinophils % (Manual) 2, Basophils % (Manual) 0, Band Neutrophils 6, Platelet Estimate DecreasedL, Platelet Morphology Normal, Red Blood Cell Morphology Normal, Prothrombin Time 11.7H, Prothromb Time International Ratio 1.1, Sodium Level 132L, Potassium Level 3.3L, Chloride Level 98, Carbon Dioxide Level 26, Anion Gap 8, Blood Urea Nitrogen 22H , Creatinine 0.8, Estimat Glomerular Filtration Rate > 60, Glucose Level 143H, Calcium Level 8.5, Total Bilirubin 1.2H, Direct Bilirubin 0.3, Aspartate Amino Transf (AST/SGOT) 113H, Alanine Aminotransferase (ALT/SGPT) 52, Alkaline Phosphatase 46, Troponin I 2.099H, Pro-B-Type Natriuretic Peptide 4327H, Total Protein 6.4, Albumin 2.3L, Globulin 4.1, Albumin/Globulin Ratio 0.6L 07/29/20 08:53: Arterial Blood pH 7.491H, Arterial Blood Partial Pressure CO2 35.8, Arterial Blood Partial Pressure O2 87.9, Arterial Blood HCO3 26.7H, Arterial Blood Oxygen Saturation 96.8, Arterial Blood Base Excess 3.6H, Ted Test Positive Current Medications Medications (Trade) Dose Ordered Sig/Evan Route PRN Reason Start Time Stop Time Status Last Admin Dose Admin Acetaminophen (Tylenol) 650 mg Q4H PRN ORAL Mild Pain (Pain Scale 1-3) 07/27/20 13:30 08/26/20 13:29 07/28/20 09:28 Aspirin (ASA) 81 mg DAILY ORAL 07/28/20 09:00 09/11/20 08:59 07/29/20 08:57 Atorvastatin Calcium (Lipitor) 80 mg BEDTIME ORAL 07/27/20 21:00 10/25/20 20:59 07/28/20 20:46 Ceftriaxone Sodium 1 gm/ Dextrose 55 ml @ 110 mls/hr Q24H IVPB 07/28/20 11:00 08/04/20 10:59 07/28/20 11:32 Chlordiazepoxide (Librium) 25 mg EVERY 8 HOURS ORAL 07/27/20 22:00 08/03/20 21:59 07/29/20 05:57 Clopidogrel Bisulfate (Plavix) 75 mg DAILY ORAL 07/28/20 09:00 08/27/20 08:59 07/29/20 08:58 Enoxaparin Sodium (Lovenox) 80 mg EVERY 12 HOURS SUBQ 07/27/20 21:00 10/25/20 20:59 07/27/20 21:24 Furosemide (Lasix) 40 mg DAILY IV 07/27/20 16:15 08/26/20 16:14 07/29/20 08:58 Hydralazine HCl (Apresoline) 20 mg Q6H PRN IV For High Blood Pressure 07/27/20 16:15 10/25/20 16:14 07/27/20 16:18 Iohexol (Omnipaque 350 100ml) 100 ml NOW PRN INJ Radiology Procedure 07/27/20 18:45 07/29/20 18:44 Losartan Potassium (Cozaar) 50 mg EVERY 12 HOURS ORAL 07/27/20 21:00 08/26/20 20:59 07/29/20 08:57 Metoprolol Tartrate (Lopressor) 50 mg EVERY 6 HOURS ORAL 07/28/20 09:15 10/25/20 16:14 07/29/20 05:57 Nitroglycerin (Ntg) 0.4 mg Q5M PRN SL Prn Chest Pain 07/27/20 16:15 08/26/20 16:14 07/27/20 16:24 Ondansetron HCl (Zofran) 4 mg Q4H PRN IVP Nausea & Vomiting 07/27/20 22:45 08/26/20 22:44 07/27/20 22:59 Thiamine HCl (Vitamin B1) 100 mg DAILY ORAL 07/28/20 09:00 08/27/20 08:59 07/29/20 08:57 Assessment/Plan Assessment/Plan 1. High D-dimer. - No evidence of pulmonary embolism on CTA chest -Lovenox held given thrombocytopenia 2. AICD. 3. CHF. 4. CAD. 5. Leukocytosis -WBC trending down -On antibiotics 6. Hypokalemia 7. Thrombocytopenia - ASA, Plavix, and Lovenox held until heme sees pt Patient needs rate control with digoxin. Cardiology is following. Beta-anay has also been started. The patient has also received amiodarone. Continue medications. Diurese. We do not see an indication for steroids. We will discontinue. Continue supportive care and p.r.n. medications. The care of this patient was discussed with my supervising physician Time spent for this encounter was approximately 31 minutes James Fernandes Jul 29, 2020 11:24
--- NOTE | 2020-07-29 11:36 | NUR ---
CASE MANAGEMENT:REVIEW 07/29/20 SI: NSTEMI. AFIB W/RVR. MULTIFOCAL PNA 97.8 102 28 149/66 97% ON VENTURI MASK 14L/55% WBC+12.3 PLT-50 K-3.3 BUN+22 TROPONIN(+) 2.099 IS: IV ROCEPHIN Q24 LOPRESSOR PO Q6HRS PLAVIX PO QD ASA PO QD LIBRIUM PO Q8HRS LOVENOX SQ Q12 COZAAR PO Q12 : STEP DOWN UNIT DCP: HOME WITH FRIENDS
[2020-07-29 12:00] VITALS: BP 137/66
--- NOTE | 2020-07-29 12:00 | NUR ---
NURSE NOTES: received patient report from lennox bowman. patient is on bed awake, not in acute distress.bed is low and locked for safety.on venti mask, tolerating, will follow plan of care.
[2020-07-29] MEDS: cefTRIAXone 1 GM in D5W 55 ML IVPB SCH (12:16)
--- NOTE | 2020-07-29 12:31 | Infectious Diseases Prog Note ---
Assessment/Plan Assessment/Plan A; 1. Pneumonia COVID-19 rapid test is negative. 2. Non ST elevation Myocardial infarction. 3. Congestive heart failure. 4. Hypertension. 5. Atrial fibrillation PLAN: 1. Continue ceftriaxone. Subjective ROS Limited/Unobtainable: Yes Constitutional: Reports: no symptoms Respiratory: Reports: shortness of breath Cardiovascular: Reports: dyspnea on exertion Gastrointestinal/Abdominal: Reports: no symptoms Genitourinary: Reports: no symptoms Allergies: Coded Allergies: No Known Allergies (Unverified , 10/24/15) Objective Last 24 Hour Vital Signs Date Time Temp Pulse Resp B/P (MAP) Pulse Ox O2 Delivery O2 Flow Rate FiO2 07/29/20 12:17 107 137/66 07/29/20 08:57 153/78 07/29/20 05:57 102 145/85 07/29/20 04:00 102 07/29/20 04:00 97.8 59 28 149/66 (93) 97 07/29/20 03:50 Venturi Mask 07/29/20 00:00 100 24 145/85 (105) 99 07/29/20 00:00 Venturi Mask 07/28/20 23:40 99 119/60 07/28/20 22:00 99 28 119/60 (79) 100 07/28/20 21:00 106/79 07/28/20 21:00 99 28 106/79 (88) 98 07/28/20 20:00 106 07/28/20 20:00 Venturi Mask 07/28/20 20:00 98.9 110 33 116/68 (84) 94 07/28/20 19:00 111 30 142/90 (107) 97 07/28/20 18:14 117 07/28/20 18:00 117 31 122/77 (92) 97 07/28/20 17:07 119 123/83 07/28/20 17:00 119 24 123/83 (96) 98 07/28/20 16:00 108 28 125/82 (96) 100 07/28/20 16:00 Venturi Mask 07/28/20 15:52 106 07/28/20 15:00 104 31 127/70 (89) 100 07/28/20 14:00 110 27 107/68 (81) 93 07/28/20 13:11 113 122/82 07/28/20 13:00 113 31 122/82 (95) 100 Height (Feet): 5 Height (Inches): 7.00 Weight (Pounds): 185 HEENT: mucous membranes moist Respiratory/Chest: lungs clear, other - O2 by venturi mask Cardiovascular: tachycardia, pacemaker/AICD Abdomen: soft, non tender Extremities: no edema Neurologic/Psychiatric: alert, responsive Microbiology Date/Time Source Procedure Growth Status 07/27/20 09:05 Nasopharynx SARS-CoV-2 Antigen (Rapid)([facility]) - Final Complete Laboratory Tests Test 07/29/20 04:35 07/29/20 08:53 White Blood Count 12.3 K/UL (4.8-10.8) H Red Blood Count 4.60 M/UL (4.70-6.10) L Hemoglobin 14.2 G/DL (14.2-18.0) Hematocrit 43.4 % (42.0-52.0) Mean Corpuscular Volume 94 FL (80-99) Mean Corpuscular Hemoglobin 30.8 PG (27.0-31.0) Mean Corpuscular Hemoglobin Concent 32.7 G/DL (32.0-36.0) Red Cell Distribution Width 13.3 % (11.6-14.8) Platelet Count 50 K/UL (150-450) L Mean Platelet Volume 13.7 FL (6.5-10.1) H Neutrophils (%) (Auto) % (45.0-75.0) Lymphocytes (%) (Auto) % (20.0-45.0) Monocytes (%) (Auto) % (1.0-10.0) Eosinophils (%) (Auto) % (0.0-3.0) Basophils (%) (Auto) % (0.0-2.0) Differential Total Cells Counted 100 Neutrophils % (Manual) 79 % (45-75) H Lymphocytes % (Manual) 5 % (20-45) L Monocytes % (Manual) 8 % (1-10) Eosinophils % (Manual) 2 % (0-3) Basophils % (Manual) 0 % (0-2) Band Neutrophils 6 % (0-8) Platelet Estimate Decreased L Platelet Morphology Normal Red Blood Cell Morphology Normal Prothrombin Time 11.7 SEC (9.30-11.50) H Prothromb Time International Ratio 1.1 (0.9-1.1) Sodium Level 132 MMOL/L (136-145) L Potassium Level 3.3 MMOL/L (3.5-5.1) L Chloride Level 98 MMOL/L (98-107) Carbon Dioxide Level 26 MMOL/L (21-32) Anion Gap 8 mmol/L (5-15) Blood Urea Nitrogen 22 mg/dL (7-18) H Creatinine 0.8 MG/DL (0.55-1.30) Estimat Glomerular Filtration Rate > 60 mL/min (>60) Glucose Level 143 MG/DL (74-106) H Calcium Level 8.5 MG/DL (8.5-10.1) Total Bilirubin 1.2 MG/DL (0.2-1.0) H Direct Bilirubin 0.3 MG/DL (0.0-0.3) Aspartate Amino Transf (AST/SGOT) 113 U/L (15-37) H Alanine Aminotransferase (ALT/SGPT) 52 U/L (12-78) Alkaline Phosphatase 46 U/L (46-116) Troponin I 2.099 ng/mL (0.000-0.056) Pro-B-Type Natriuretic Peptide 4327 pg/mL (0-125) H Total Protein 6.4 G/DL (6.4-8.2) Albumin 2.3 G/DL (3.4-5.0) L Globulin 4.1 g/dL Albumin/Globulin Ratio 0.6 (1.0-2.7) L Arterial Blood pH 7.491 (7.350-7.450) Arterial Blood Partial Pressure CO2 35.8 mmHg (35.0-45.0) Arterial Blood Partial Pressure O2 87.9 mmHg (75.0-100.0) Arterial Blood HCO3 26.7 mmol/L (22.0-26.0) H Arterial Blood Oxygen Saturation 96.8 % (95-100) Arterial Blood Base Excess 3.6 (-2-2) H Ted Test Positive Current Medications Medications (Trade) Dose Ordered Sig/Evan Route PRN Reason Start Time Stop Time Status Last Admin Dose Admin Acetaminophen (Tylenol) 650 mg Q4H PRN ORAL Mild Pain (Pain Scale 1-3) 07/27/20 13:30 08/26/20 13:29 07/28/20 09:28 Aspirin (ASA) 81 mg DAILY ORAL 07/28/20 09:00 09/11/20 08:59 07/29/20 08:57 Atorvastatin Calcium (Lipitor) 80 mg BEDTIME ORAL 07/27/20 21:00 10/25/20 20:59 07/28/20 20:46 Ceftriaxone Sodium 1 gm/ Dextrose 55 ml @ 110 mls/hr Q24H IVPB 07/28/20 11:00 08/04/20 10:59 07/29/20 12:16 Chlordiazepoxide (Librium) 25 mg EVERY 8 HOURS ORAL 07/27/20 22:00 08/03/20 21:59 07/29/20 05:57 Clopidogrel Bisulfate (Plavix) 75 mg DAILY ORAL 07/28/20 09:00 08/27/20 08:59 07/29/20 08:58 Enoxaparin Sodium (Lovenox) 80 mg EVERY 12 HOURS SUBQ 07/27/20 21:00 10/25/20 20:59 07/27/20 21:24 Furosemide (Lasix) 40 mg DAILY IV 07/27/20 16:15 08/26/20 16:14 07/29/20 08:58 Hydralazine HCl (Apresoline) 20 mg Q6H PRN IV For High Blood Pressure 07/27/20 16:15 10/25/20 16:14 07/27/20 16:18 Iohexol (Omnipaque 350 100ml) 100 ml NOW PRN INJ Radiology Procedure 07/27/20 18:45 07/29/20 18:44 Losartan Potassium (Cozaar) 50 mg EVERY 12 HOURS ORAL 07/27/20 21:00 08/26/20 20:59 07/29/20 08:57 Metoprolol Tartrate (Lopressor) 50 mg EVERY 6 HOURS ORAL 07/28/20 09:15 10/25/20 16:14 07/29/20 12:17 Nitroglycerin (Ntg) 0.4 mg Q5M PRN SL Prn Chest Pain 07/27/20 16:15 08/26/20 16:14 07/27/20 16:24 Ondansetron HCl (Zofran) 4 mg Q4H PRN IVP Nausea & Vomiting 07/27/20 22:45 08/26/20 22:44 07/27/20 22:59 Thiamine HCl (Vitamin B1) 100 mg DAILY ORAL 07/28/20 09:00 08/27/20 08:59 07/29/20 08:57 Patric Cleary MD Jul 29, 2020 12:31
--- NOTE | 2020-07-29 15:16 | NUR ---
NURSE NOTES: left a message to dr benavides regarding K level of 3.3 and Na level of 132. awaiting callback and new order.
[2020-07-29 16:00] VITALS: BP 145/76
--- NOTE | 2020-07-29 18:30 | General Progress Note ---
Subjective Allergies: Coded Allergies: No Known Allergies (Unverified , 10/24/15) Subjective doing better more awake on venturi mask Objective Last 24 Hour Vital Signs Date Time Temp Pulse Resp B/P (MAP) Pulse Ox O2 Delivery O2 Flow Rate FiO2 07/29/20 16:43 107 137/66 07/29/20 16:00 97.6 84 22 145/76 (99) 98 07/29/20 16:00 88 07/29/20 16:00 Venturi Mask 07/29/20 12:17 107 137/66 07/29/20 12:00 97.2 82 20 137/66 (89) 98 07/29/20 12:00 Venturi Mask 07/29/20 08:57 153/78 07/29/20 08:00 96.8 114 22 153/78 (103) 100 07/29/20 08:00 Venturi Mask 07/29/20 07:57 92 07/29/20 05:57 102 145/85 07/29/20 04:00 102 07/29/20 04:00 97.8 59 28 149/66 (93) 97 07/29/20 03:50 Venturi Mask 07/29/20 00:00 100 24 145/85 (105) 99 07/29/20 00:00 Venturi Mask 07/28/20 23:40 99 119/60 07/28/20 22:00 99 28 119/60 (79) 100 07/28/20 21:00 106/79 07/28/20 21:00 99 28 106/79 (88) 98 07/28/20 20:00 106 07/28/20 20:00 Venturi Mask 07/28/20 20:00 98.9 110 33 116/68 (84) 94 07/28/20 19:00 111 30 142/90 (107) 97 Intake and Output 07/28/20 07/29/20 19:00 07:00 Intake Total 1015 ml 480 ml Output Total 810 ml 1300 ml Balance 205 ml -820 ml Intake Oral 960 ml 480 ml IV Total 55 ml Output Urine Total 810 ml 800 ml Stool Total 500 ml # Voids 1 # Bowel Movements 1 Laboratory Tests 07/29/20 04:35: White Blood Count 12.3H, Red Blood Count 4.60L, Hemoglobin 14.2, Hematocrit 43.4, Mean Corpuscular Volume 94, Mean Corpuscular Hemoglobin 30.8, Mean Corpuscular Hemoglobin Concent 32.7, Red Cell Distribution Width 13.3, Platelet Count 50L, Mean Platelet Volume 13.7H, Neutrophils (%) (Auto) , Lymphocytes (%) (Auto) , Monocytes (%) (Auto) , Eosinophils (%) (Auto) , Basophils (%) (Auto) , Differential Total Cells Counted 100, Neutrophils % (Manual) 79H, Lymphocytes % (Manual) 5L, Monocytes % (Manual) 8, Eosinophils % (Manual) 2, Basophils % (M anual) 0, Band Neutrophils 6, Platelet Estimate DecreasedL, Platelet Morphology Normal, Red Blood Cell Morphology Normal, Prothrombin Time 11.7H, Prothromb Time International Ratio 1.1, Sodium Level 132L, Potassium Level 3.3L, Chloride Level 98, Carbon Dioxide Level 26, Anion Gap 8, Blood Urea Nitrogen 22H, Creatinine 0.8, Estimat Glomerular Filtration Rate > 60, Glucose Level 143H, Calcium Level 8.5, Total Bilirubin 1.2H, Direct Bilirubin 0.3, Aspartate Amino Transf (AST/SGOT) 113H, Alanine Aminotransferase (ALT/SGPT) 52, Alkaline Phosphatase 46, Troponin I 2.099H, Pro-B-Type Natriuretic Peptide 4327H, Total Protein 6.4, Albumin 2.3L, Globulin 4.1, Albumin/Globulin Ratio 0.6L 07/29/20 08:53: Arterial Blood pH 7.491H, Arterial Blood Partial Pressure CO2 35.8, Arterial Blood Partial Pressure O2 87.9, Arterial Blood HCO3 26.7H, Arterial Blood Oxygen Saturation 96.8, Arterial Blood Base Excess 3.6H, Ted Test Positive Height (Feet): 5 Height (Inches): 7.00 Weight (Pounds): 185 General Appearance: alert EENT: PERRL/EOMI Neck: supple Cardiovascular: regular rhythm Respiratory/Chest: crackles/rales Abdomen: non tender, soft Extremities: non-tender Assessment/Plan Status: progressing Assessment/Plan: sob afib pna chf etoh abused pna iv abx iv sterids librium cont o2 pumonary tx pulmonary on consult admited in [facility] Kadeem Luis MD Jul 29, 2020 18:30
--- NOTE | 2020-07-29 19:27 | NUR ---
NURSE HAND-OFF REPORT: Important Events on Shift:stable, converted to SR with PVcs, PACs Patient Status: full code Diet: low na Pending Orders: [] Pending Results/Labs:[] Pending MD notification:[] Latest Vital Signs: Temperature 97.6 , Pulse 107 , B/P 137 /66 , Respiratory Rate 22 , O2 SAT 98 , Nasal Cannula, O2 Flow Rate 14.0 . Vital Sign Comment: [] EKG Rhythm: SR with PVCs Rhythm change?: N Notified?: Leena Huggins MD Response: Latest Ryan Fall Score: 45 Fall Risk: High Risk Safety Measures: Call light Within Reach, Bed Alarm Zone 1, Side Rails Side Rails x3, Bed position Low and Locked. Fall Precautions: Yellow Socks Patient Fall Education Report given to lu bowman.
--- NOTE | 2020-07-29 19:28 | NUR ---
NURSE NOTES: Received patient from [facility] under the care of Dr. Luis for the admitting dx of Marbella vanegas RVR. Noted NKA and full code status. PUI isolation observed and maintained at all times. Patient noted to be alert oriented x3-4 able to verbalize needs with clear speech in [place]. Tolerating Venturi mask settings (45%) well with no acute distress noted at this time. Will continue to monitor.
[2020-07-29 20:00] VITALS: BP 150/75
--- NOTE | 2020-07-29 21:00 | NUR ---
NURSE NOTES: Patient awake and trying to ambulate to bathroom for a BM. Assisted to bathroom. All due meds given and tolerated well. Tolerating venturi mask with no acute distress noted. Denies pain at this time. Will continue to monitor.
[2020-07-29] MEDS: Atorvastatin 80mg tab ORAL SCH (21:04)
--- NOTE | 2020-07-29 21:52 | Cardiology Progress Note ---
Assessment/Plan Status: stable Status Narrative 1. NSTEMI with troponin elevation 3.3 ASA, Plavix, and Lovenox 2. Afib with RVR Bb and digoxin for rate and rhythm control 3. Multifocal PNA and respiratory failure - improved, was on NRB now NC Leukocytosis h/o recent COVID-19, repeat swab pending 4. CHF acute on chronic systolic on diastolic HF, reduced EF 40%, s/p AICD IV Lasix for diuresis BNP severely elevated 5. HTN and hypertensive urgency improved on multiple antihypertensives 6. Hx of substance abuse 7. Psychiatric disorder and homelessness 8. N/V 9. Thrombocytopenia CTA chest negative for PE. Acute NSTEMI will be managed medically, pt is not a good candidate for intervention at this time. Aggressive diuresis as tolerated, rate and rhythm control with Bb and digoxin. Pt has AICD. Subjective Subjective Appears improved, denies chest pain Objective Last 24 Hour Vital Signs Date Time Temp Pulse Resp B/P (MAP) Pulse Ox O2 Delivery O2 Flow Rate FiO2 07/29/20 21:04 150/75 07/29/20 20:00 97.7 68 20 150/75 (100) 99 07/29/20 20:00 Venturi Mask 07/29/20 20:00 76 07/29/20 16:43 107 137/66 07/29/20 16:00 97.6 84 22 145/76 (99) 98 07/29/20 16:00 88 07/29/20 16:00 Venturi Mask 07/29/20 12:17 107 137/66 07/29/20 12:00 97.2 82 20 137/66 (89) 98 07/29/20 12:00 Venturi Mask 07/29/20 08:57 153/78 07/29/20 08:00 96.8 114 22 153/78 (103) 100 07/29/20 08:00 Venturi Mask 07/29/20 07:57 92 07/29/20 05:57 102 145/85 07/29/20 04:00 102 07/29/20 04:00 97.8 59 28 149/66 (93) 97 07/29/20 03:50 Venturi Mask 07/29/20 00:00 100 24 145/85 (105) 99 07/29/20 00:00 Venturi Mask 07/28/20 23:40 99 119/60 07/28/20 22:00 99 28 119/60 (79) 100 Intake and Output 07/28/20 07/29/20 19:00 07:00 Intake Total 1015 ml 480 ml Output Total 810 ml 1300 ml Balance 205 ml -820 ml Intake Oral 960 ml 480 ml IV Total 55 ml Output Urine Total 810 ml 800 ml Stool Total 500 ml # Voids 1 # Bowel Movements 1 Laboratory Tests Test 07/29/20 04:35 07/29/20 08:53 White Blood Count 12.3 K/UL (4.8-10.8) H Red Blood Count 4.60 M/UL (4.70-6.10) L Hemoglobin 14.2 G/DL (14.2-18.0) Hematocrit 43.4 % (42.0-52.0) Mean Corpuscular Volume 94 FL (80-99) Mean Corpuscular Hemoglobin 30.8 PG (27.0-31.0) Mean Corpuscular Hemoglobin Concent 32.7 G/DL (32.0-36.0) Red Cell Distribution Width 13.3 % (11.6-14.8) Platelet Count 50 K/UL (150-450) L Mean Platelet Volume 13.7 FL (6.5-10.1) H Neutrophils (%) (Auto) % (45.0-75.0) Lymphocytes (%) (Auto) % (20.0-45.0) Monocytes (%) (Auto) % (1.0-10.0) Eosinophils (%) (Auto) % (0.0-3.0) Basophils (%) (Auto) % (0.0-2.0) Differential Total Cells Counted 100 Neutrophils % (Manual) 79 % (45-75) H Lymphocytes % (Manual) 5 % (20-45) L Monocytes % (Manual) 8 % (1-10) Eosinophils % (Manual) 2 % (0-3) Basophils % (Manual) 0 % (0-2) Band Neutrophils 6 % (0-8) Platelet Estimate Decreased L Platelet Morphology Normal Red Blood Cell Morphology Normal Prothrombin Time 11.7 SEC (9.30-11.50) H Prothromb Time International Ratio 1.1 (0.9-1.1) Sodium Level 132 MMOL/L (136-145) L Potassium Level 3.3 MMOL/L (3.5-5.1) L Chloride Level 98 MMOL/L (98-107) Carbon Dioxide Level 26 MMOL/L (21-32) Anion Gap 8 mmol/L (5-15) Blood Urea Nitrogen 22 mg/dL (7-18) H Creatinine 0.8 MG/DL (0.55-1.30) Estimat Glomerular Filtration Rate > 60 mL/min (>60) Glucose Level 143 MG/DL (74-106) H Calcium Level 8.5 MG/DL (8.5-10.1) Total Bilirubin 1.2 MG/DL (0.2-1.0) H Direct Bilirubin 0.3 MG/DL (0.0-0.3) Aspartate Amino Transf (AST/SGOT) 113 U/L (15-37) H Alanine Aminotransferase (ALT/SGPT) 52 U/L (12-78) Alkaline Phosphatase 46 U/L (46-116) Troponin I 2.099 ng/mL (0.000-0.056) Pro-B-Type Natriuretic Peptide 4327 pg/mL (0-125) H Total Protein 6.4 G/DL (6.4-8.2) Albumin 2.3 G/DL (3.4-5.0) L Globulin 4.1 g/dL Albumin/Globulin Ratio 0.6 (1.0-2.7) L Arterial Blood pH 7.491 (7.350-7.450) Arterial Blood Partial Pressure CO2 35.8 mmHg (35.0-45.0) Arterial Blood Partial Pressure O2 87.9 mmHg (75.0-100.0) Arterial Blood HCO3 26.7 mmol/L (22.0-26.0) H Arterial Blood Oxygen Saturation 96.8 % (95-100) Arterial Blood Base Excess 3.6 (-2-2) H Ted Test Positive Microbiology Date/Time Source Procedure Growth Status 07/27/20 09:05 Nasopharynx SARS-CoV-2 Antigen (Rapid)([facility]) - Final Complete Arlen Huggins PA-C Jul 29, 2020 21:51
[2020-07-30] VITALS: BP 140/79
[2020-07-30] MEDS: Metoprolol Tartrate 50mg tab ORAL SCH ×5 (00:08→23:44)
--- NOTE | 2020-07-30 00:45 | NUR ---
NURSE HAND-OFF REPORT: Important Events on Shift:Transfer to TELE unit Patient Status: Stable Diet: Low Na Pending Orders: Pending Results/Labs: Pending MD notification: Latest Vital Signs: Temperature 97.9 , Pulse 87 , B/P 144 /85 , Respiratory Rate 20 , O2 SAT 97 , Nasal Cannula, O2 Flow Rate 14.0 . Vital Sign Comment: WNL EKG Rhythm: Sinus Rhythm Rhythm change?: N MD Notified?: Leena Huggins MD Response: Latest Ryan Fall Score: 45 Fall Risk: High Risk Safety Measures: Call light Within Reach, Bed Alarm Zone 1, Side Rails Side Rails x3, Bed position Low and Locked. Fall Precautions: Yellow Socks Patient Fall Education Report given to [facility].
--- NOTE | 2020-07-30 00:47 | NUR ---
NURSE NOTES: Received patient from [facility]. Pt is A/O x3-4 and Sami with simple Emglsih. Pt has PUI isolation observed and maintained at all times. Pt is on Venturi mask settings 15L with Fio 45% . No SOB or acute distress noted. No pain noted. Pt is continent of both bowel and bladder and uses the urinal. Pt bed in lowest position and locked with side rails x2. Will continue to monitor.
[2020-07-30 04:00] VITALS: BP 111/51
[2020-07-30] MEDS: chlordiazePOXIDE 25mg Cap ORAL SCH ×3 (05:44→21:31)
--- NOTE | 2020-07-30 07:16 | NUR ---
NURSE HAND-OFF REPORT: Important Events on Shift: Pt transferred from [facility]. Aflutter to 167. Pt is now on 2L NC instead of ventri mask. Patient Status: Stable Diet: CCHO Low Pending Orders: Pending Results/Labs: Pending MD notification: Latest Vital Signs: Temperature 97.5 , Pulse 90 , B/P 111 /51 , Respiratory Rate 22 , O2 SAT 99 , Nasal Cannula, O2 Flow Rate 14.0 . Vital Sign Comment: EKG Rhythm: SR with PVCs Rhythm change?: N Notified?: Leena Huggins MD Response: Latest Ryan Fall Score: 45 Fall Risk: High Risk Safety Measures: Call light Within Reach, Bed Alarm Zone 1, Side Rails Side Rails x3, Bed position Low and Locked. Fall Precautions: Yellow Socks Patient Fall Education Report given to
--- NOTE | 2020-07-30 07:33 | NUR ---
NURSE NOTES: report received from TITA Ward. Patient is on bed, responds appropriately but in Telugu. Breakfast is on the bedside table. Currently on 2L nasal cannula, saturating well, tolerating well. On low sodium diet. Ambulator and voids by himself. Patient has a R H 20 g IV patent, intact, and saline locked, and a L FA 22 g patent, intact, and saline locked. HOB on lowest position, locked, side rails up, bed side table within reach, call light within reach. Will continue to be monitored. Will continue plan of care.
[2020-07-30 08:00] VITALS: BP_SYST 111; BP_SYST 94; BP_DIAS 55; BP_DIAS 56
[2020-07-30] MEDS: Enoxaparin 80mg Inj SUBQ SCH ×2 (08:05→21:00)
[2020-07-30] MEDS: Thiamine 100mg tab ORAL SCH (08:06)
[2020-07-30] MEDS: Aspirin Baby 81mg ORAL SCH (08:06)
[2020-07-30] MEDS: Losartan 50mg tab ORAL SCH ×2 (08:29→21:00)
--- NOTE | 2020-07-30 08:30 | NUR ---
NURSE NOTES: Morning medication administered. Held off lasix and cozaar because patient is hypotensive (94/55). plavix and lovenox are also held because patient's platelets are decreased. will continue to monitor patient.
--- NOTE | 2020-07-30 10:11 | General Progress Note ---
Subjective Date patient seen: Jul 30, 2020 Constitutional: Reports: weakness HEENT: Reports: no symptoms Cardiovascular: Reports: no symptoms Respiratory: Reports: no symptoms Allergies: Coded Allergies: No Known Allergies (Unverified , 10/24/15) Subjective doing better more awake on venturi mask Objective Last 24 Hour Vital Signs Date Time Temp Pulse Resp B/P (MAP) Pulse Ox O2 Delivery O2 Flow Rate FiO2 07/30/20 08:29 94/55 07/30/20 08:00 91 07/30/20 05:44 90 111/51 07/30/20 04:00 90 07/30/20 04:00 97.5 100 22 111/51 (71) 99 07/30/20 00:08 87 144/85 07/30/20 00:00 97.9 70 20 140/79 (99) 97 07/29/20 21:04 150/75 07/29/20 20:00 97.7 68 20 150/75 (100) 99 07/29/20 20:00 Venturi Mask 07/29/20 20:00 76 07/29/20 16:43 107 137/66 07/29/20 16:00 97.6 84 22 145/76 (99) 98 07/29/20 16:00 88 07/29/20 16:00 Venturi Mask 07/29/20 12:17 107 137/66 07/29/20 12:00 97.2 82 20 137/66 (89) 98 07/29/20 12:00 Venturi Mask l Intake and Output 07/29/20 07/30/20 19:00 07:00 Intake Total 855 ml 1020 ml Balance 855 ml 1020 ml Intake Oral 800 ml 1020 ml IV Total 55 ml # Voids 3 2 # Bowel Movements 2 Height (Feet): 5 Height (Inches): 7.00 Weight (Pounds): 185 General Appearance: alert EENT: PERRL/EOMI Neck: supple Cardiovascular: tachycardia Respiratory/Chest: crackles/rales Abdomen: non tender, soft Extremities: non-tender Skin: warm/dry Assessment/Plan Status: progressing Assessment/Plan: sob afib pna chf etoh abused pna iv abx iv sterids librium cont o2 pumonary tx pulmonary on consult admited in Kadeem Calderón MD Jul 30, 2020 10:10
--- NOTE | 2020-07-30 10:43 | Cardiology Report ---
APPROVED REPORT EXAM: Two-dimensional and M-mode echocardiogram with Doppler and color Doppler. M-Mode DIMENSIONS IVSd1.0 (0.7-1.1cm)Left Atrium (MM)5.5 (1.6-4.0cm) LVDd6.7 (3.5-5.6cm)Aortic Root3.4 (2.0-3.7cm) PWd1.3 (0.7-1.1cm)Aortic Cusp Exc.1.8 (1.5-2.0cm) IVSs1.7 cmEPSS1.0 (>1.0cm) LVDs4.8 (2.5-4.0cm) PWs2.1 cm <Conclusion> Technically difficult study. Normal left ventricular chamber size. This study precludes analysis of LV wall motion. Left ventricular ejection fraction estimated to be 40-45 % to the extent visualized. No evidence of left ventricular hypertrophy. No evidence of pericardial effusion. Mild left atrial enlargement. Right cardiac chamber sizes are within normal limits. Focal aortic valve sclerosis with adequate cusp excursion. Thickened mitral valve leaflets with normal excursion. Mitral annulus and aortic root calcification. Normal pulmonic valve structure. Normal tricuspid valve structure. IVC at normal size and collapsing with respiration. A color flow and spectral Doppler study was performed and revealed: Trace aortic regurgitation. Can not determine left ventricular diastolic function by mitral diastolic velocities due to atrial fibrillation. Trace mitral regurgitation. Mild tricuspid regurgitation. Tricuspid systolic velocities suggests peak right ventricular systolic pressure of 19 mmHg.
--- NOTE | 2020-07-30 10:52 | Infectious Diseases Prog Note ---
Assessment/Plan Assessment/Plan antibiotics : ceftriaxone A 1. pneumonia covid 19 rapid test negative 2. hypertension 3. CHF P 1. continue ceftriaxone 2. start dexamethasone 3. covid 19 PCR pending 4. continue isolation Subjective Constitutional: Denies: fever, chills Respiratory: Reports: shortness of breath, dry cough Gastrointestinal/Abdominal: Denies: nausea, vomiting, diarrhea Musculoskeletal: Denies: pain Allergies: Coded Allergies: No Known Allergies (Unverified , 10/24/15) Objective Last 24 Hour Vital Signs Date Time Temp Pulse Resp B/P (MAP) Pulse Ox O2 Delivery O2 Flow Rate FiO2 07/30/20 09:00 Venturi Mask 07/30/20 08:29 94/55 07/30/20 08:00 91 07/30/20 08:00 98.4 83 16 111/56 (74) 90 07/30/20 05:44 90 111/51 07/30/20 04:00 90 07/30/20 04:00 97.5 100 22 111/51 (71) 99 07/30/20 00:08 87 144/85 07/30/20 00:00 97.9 70 20 140/79 (99) 97 07/29/20 21:04 150/75 07/29/20 20:00 97.7 68 20 150/75 (100) 99 07/29/20 20:00 Venturi Mask 07/29/20 20:00 76 07/29/20 16:43 107 137/66 07/29/20 16:00 97.6 84 22 145/76 (99) 98 07/29/20 16:00 88 07/29/20 16:00 Venturi Mask 07/29/20 12:17 107 137/66 07/29/20 12:00 97.2 82 20 137/66 (89) 98 07/29/20 12:00 Venturi Mask Height (Feet): 5 Height (Inches): 7.00 Weight (Pounds): 185 Laboratory Tests Test 07/30/20 10:20 Hepatitis A IgM Antibody Pending Hepatitis B Surface Antigen Pending Hepatitis B Core IgM Antibody Pending Hepatitis C Antibody Pending HIV (1&2) Antibody Rapid Pending Current Medications Medications (Trade) Dose Ordered Sig/Evan Route PRN Reason Start Time Stop Time Status Last Admin Dose Admin Acetaminophen (Tylenol) 650 mg Q4H PRN ORAL Mild Pain (Pain Scale 1-3) 07/27/20 13:30 08/26/20 13:29 07/30/20 06:30 Aspirin (ASA) 81 mg DAILY ORAL 07/28/20 09:00 09/11/20 08:59 07/30/20 08:06 Atorvastatin Calcium (Lipitor) 80 mg BEDTIME ORAL 07/27/20 21:00 10/25/20 20:59 07/29/20 21:04 Ceftriaxone Sodium 1 gm/ Dextrose 55 ml @ 110 mls/hr Q24H IVPB 07/28/20 11:00 08/04/20 10:59 07/29/20 12:16 Chlordiazepoxide (Librium) 25 mg EVERY 8 HOURS ORAL 07/27/20 22:00 08/03/20 21:59 07/30/20 05:44 Clopidogrel Bisulfate (Plavix) 75 mg DAILY ORAL 07/28/20 09:00 08/27/20 08:59 07/29/20 08:58 Enoxaparin Sodium (Lovenox) 80 mg EVERY 12 HOURS SUBQ 07/27/20 21:00 10/25/20 20:59 07/27/20 21:24 Furosemide (Lasix) 40 mg DAILY IV 07/27/20 16:15 08/26/20 16:14 07/29/20 08:58 Hydralazine HCl (Apresoline) 20 mg Q6H PRN IV For High Blood Pressure 07/27/20 16:15 10/25/20 16:14 07/27/20 16:18 Losartan Potassium (Cozaar) 50 mg EVERY 12 HOURS ORAL 07/27/20 21:00 08/26/20 20:59 07/29/20 21:04 Metoprolol Tartrate (Lopressor) 50 mg EVERY 6 HOURS ORAL 07/28/20 09:15 10/25/20 16:14 07/30/20 05:44 Nitroglycerin (Ntg) 0.4 mg Q5M PRN SL Prn Chest Pain 07/27/20 16:15 08/26/20 16:14 07/27/20 16:24 Ondansetron HCl (Zofran) 4 mg Q4H PRN IVP Nausea & Vomiting 07/27/20 22:45 08/26/20 22:44 07/27/20 22:59 Thiamine HCl (Vitamin B1) 100 mg DAILY ORAL 07/28/20 09:00 08/27/20 08:59 07/30/20 08:06 Tuan Guajardo MD Jul 30, 2020 10:52
--- NOTE | 2020-07-30 11:05 | NUR ---
NURSE NOTES: cardiac PA came by and reported to her about patient's hypotensive episodes. no further orders taken, favored to keep continuing monitoring the patient.
--- NOTE | 2020-07-30 11:13 | Surgery Progress Note ---
Surgery Progress Note Subjective Additional Comments wbc improving no n/v comfortable labs noted Objective Last 24 Hour Vital Signs Date Time Temp Pulse Resp B/P (MAP) Pulse Ox O2 Delivery O2 Flow Rate FiO2 07/30/20 09:00 Venturi Mask 07/30/20 08:29 94/55 07/30/20 08:00 91 07/30/20 08:00 98.4 83 16 111/56 (74) 90 07/30/20 05:44 90 111/51 07/30/20 04:00 90 07/30/20 04:00 97.5 100 22 111/51 (71) 99 07/30/20 00:08 87 144/85 07/30/20 00:00 97.9 70 20 140/79 (99) 97 07/29/20 21:04 150/75 07/29/20 20:00 97.7 68 20 150/75 (100) 99 07/29/20 20:00 Venturi Mask 07/29/20 20:00 76 07/29/20 16:43 107 137/66 07/29/20 16:00 97.6 84 22 145/76 (99) 98 07/29/20 16:00 88 07/29/20 16:00 Venturi Mask 07/29/20 12:17 107 137/66 07/29/20 12:00 97.2 82 20 137/66 (89) 98 07/29/20 12:00 Venturi Mask I&O Intake and Output 07/29/20 07/30/20 19:00 07:00 Intake Total 855 ml 1020 ml Balance 855 ml 1020 ml Intake Oral 800 ml 1020 ml IV Total 55 ml # Voids 3 2 # Bowel Movements 2 Cardiovascular: RSR Respiratory: decreased breath sounds Abdomen: soft, flat, non-tender, present bowel sounds, non-distended Extremities: no edema, no tenderness, no cyanosis Laboratory Tests Test 07/30/20 10:20 Hepatitis A IgM Antibody Pending Hepatitis B Surface Antigen Pending Hepatitis B Core IgM Antibody Pending Hepatitis C Antibody Pending HIV (1&2) Antibody Rapid Pending Plan Problems: (1) Cellulitis of lower extremity Assessment & Plan: Pt presented on admission with wound of unknown etiology R 1st metatarsal. Pt's hygiene is grossly neglected. To properly assess wound,pt's feet required extensive scrubbing to remove caked on dirt both feet. erythema and edema noted mild cellulitis Base of wound dorso/lateral R 1st metatarsalis darío with loose edges(L)2.3cm x (W)4cm. No exudate noted. NO erythema,swelling or changes in skin temp periwound. Second laceration noted to plantar-base of R 1st metatarsal(L)0.3cm x (W)1.2cm. Base of wound is darío. Edges are adherent to base of wound. No erythema swelling or changes in skin temp periwound. L foot 3rd and 4th metatarsals noted to have small ulcers that are dry . No surrounding erythema noted. Tx.Plan: Apply Betadine to dorsal and plantar wounds R 1st metatarsal. Cover with Gauze and wrap with Kerlix. Change every 3 days and prn. Swab ulcers dorsal L 3rd and 4th Metatarsals with Betadine Daily. Leave open to Air. turn q2h off load pressure nutritional optimization (2) Hypokalemia (3) Leukocytosis, unspecified (4) NSTEMI (non-ST elevated myocardial infarction) (5) Atrial fibrillation with RVR (6) Alcohol intoxication Dino Angelo Jul 30, 2020 11:12
--- NOTE | 2020-07-30 11:18 | Pulmonology Progress Note ---
Subjective ROS Limited/Unobtainable: Yes Constitutional: Denies: fever, chills HEENT: Repors: no symptoms Respiratory: Reports: shortness of breath Cardiovascular: Reports: no symptoms Gastrointestinal/Abdominal: Denies: nausea, vomiting, diarrhea Genitourinary: Reports: no symptoms Musculoskeletal: Denies: pain Allergies: Coded Allergies: No Known Allergies (Unverified , 10/24/15) Objective Last 24 Hour Vital Signs Date Time Temp Pulse Resp B/P (MAP) Pulse Ox O2 Delivery O2 Flow Rate FiO2 07/30/20 09:00 Venturi Mask 07/30/20 08:29 94/55 07/30/20 08:00 91 07/30/20 08:00 98.4 83 16 111/56 (74) 90 07/30/20 05:44 90 111/51 07/30/20 04:00 90 07/30/20 04:00 97.5 100 22 111/51 (71) 99 07/30/20 00:08 87 144/85 07/30/20 00:00 97.9 70 20 140/79 (99) 97 07/29/20 21:04 150/75 07/29/20 20:00 97.7 68 20 150/75 (100) 99 07/29/20 20:00 Venturi Mask 07/29/20 20:00 76 07/29/20 16:43 107 137/66 07/29/20 16:00 97.6 84 22 145/76 (99) 98 07/29/20 16:00 88 07/29/20 16:00 Venturi Mask 07/29/20 12:17 107 137/66 07/29/20 12:00 97.2 82 20 137/66 (89) 98 07/29/20 12:00 Venturi Mask Intake and Output 07/29/20 07/30/20 19:00 07:00 Intake Total 855 ml 1020 ml Balance 855 ml 1020 ml Intake Oral 800 ml 1020 ml IV Total 55 ml # Voids 3 2 # Bowel Movements 2 General Appearance: no acute distress HEENT: atraumatic Respiratory: crackles/rales Cardiovascular: regular rhythm, tachycardia Abdomen: soft, non tender Laboratory Tests 07/30/20 10:20: Hepatitis A IgM Antibody [Pending], Hepatitis B Surface Antigen [Pending], Hepatitis B Core IgM Antibody [Pending], Hepatitis C Antibody [Pending], HIV (1&2) Antibody Rapid [Pending] Current Medications Medications (Trade) Dose Ordered Sig/Evan Route PRN Reason Start Time Stop Time Status Last Admin Dose Admin Acetaminophen (Tylenol) 650 mg Q4H PRN ORAL Mild Pain (Pain Scale 1-3) 07/27/20 13:30 08/26/20 13:29 07/30/20 06:30 Aspirin (ASA) 81 mg DAILY ORAL 07/28/20 09:00 09/11/20 08:59 07/30/20 08:06 Atorvastatin Calcium (Lipitor) 80 mg BEDTIME ORAL 07/27/20 21:00 10/25/20 20:59 07/29/20 21:04 Ceftriaxone Sodium 1 gm/ Dextrose 55 ml @ 110 mls/hr Q24H IVPB 07/28/20 11:00 08/04/20 10:59 07/29/20 12:16 Chlordiazepoxide (Librium) 25 mg EVERY 8 HOURS ORAL 07/27/20 22:00 08/03/20 21:59 07/30/20 05:44 Clopidogrel Bisulfate (Plavix) 75 mg DAILY ORAL 07/28/20 09:00 08/27/20 08:59 07/29/20 08:58 Dexamethasone Sodium Phosphate (Decadron 10mg/ ml Inj) 6 mg DAILY IV 07/30/20 11:30 08/08/20 09:01 Enoxaparin Sodium (Lovenox) 80 mg EVERY 12 HOURS SUBQ 07/27/20 21:00 10/25/20 20:59 07/27/20 21:24 Furosemide (Lasix) 40 mg DAILY IV 07/27/20 16:15 08/26/20 16:14 07/29/20 08:58 Hydralazine HCl (Apresoline) 20 mg Q6H PRN IV For High Blood Pressure 07/27/20 16:15 10/25/20 16:14 07/27/20 16:18 Losartan Potassium (Cozaar) 50 mg EVERY 12 HOURS ORAL 07/27/20 21:00 08/26/20 20:59 07/29/20 21:04 Metoprolol Tartrate (Lopressor) 50 mg EVERY 6 HOURS ORAL 07/28/20 09:15 10/25/20 16:14 07/30/20 05:44 Nitroglycerin (Ntg) 0.4 mg Q5M PRN SL Prn Chest Pain 07/27/20 16:15 08/26/20 16:14 07/27/20 16:24 Ondansetron HCl (Zofran) 4 mg Q4H PRN IVP Nausea & Vomiting 07/27/20 22:45 08/26/20 22:44 07/27/20 22:59 Thiamine HCl (Vitamin B1) 100 mg DAILY ORAL 07/28/20 09:00 08/27/20 08:59 07/30/20 08:06 Assessment/Plan Assessment/Plan 1. High D-dimer. - No evidence of pulmonary embolism on CTA chest -Lovenox held due to thrombocytopenia 2. AICD. 3. CHF. 4. CAD. 5. Leukocytosis -WBC trending down -On antibiotics 6. Hypokalemia 7. Thrombocytopenia - ASA, Plavix, and Lovenox held until heme sees pt - heme following Patient needs rate control with digoxin. Cardiology is following. Beta-anay has also been started. The patient has also received amiodarone. Continue medications. Diurese. We do not see an indication for steroids. We will discontinue. Continue supportive care and p.r.n. medications. The care of this patient was discussed with my supervising physician Time spent for this encounter was approximately 31 minutes James Fernandes Jul 30, 2020 11:18
[2020-07-30] MEDS: dexAMETHasone 10mg/ml Inj IV SCH (11:41)
[2020-07-30] MEDS: cefTRIAXone 1 GM in D5W 55 ML IVPB SCH (11:41)
[2020-07-30 12:00] VITALS: BP 103/55
--- NOTE | 2020-07-30 12:02 | NUR ---
CASE MANAGEMENT:REVIEW 07/30/20 SI: NSTEMI. AFIB W/RVR. MULTIFOCAL PNA 98.4 91 16 111/56 90% ON VENTURI MASK 14L/55% WBC+12.3 PLT-50 K-3.3 BUN+22 TROPONIN(+) 2.099 IS: IV ROCEPHIN Q24 IV DECADRON QD LOPRESSOR PO Q6HRS PLAVIX PO QD ASA PO QD LIBRIUM PO Q8HRS LOVENOX SQ Q12 COZAAR PO Q12 IV LASIX QD (HELD) : NOW ON TELEMETRY DCP: HOME WITH FRIENDS
--- NOTE | 2020-07-30 13:07 | NUR ---
NURSE NOTES: Noon metoprolol not administered to patient because patient is hypotensive 103/55. Will continue to monitor blood pressure.
[2020-07-30 16:00] VITALS: BP 127/85
[2020-07-30] MEDS ORDERED: NS 275ml ONE (16:18)
[2020-07-30] MEDS ORDERED: Tubing IV Secondary IV ONE (16:18)
--- NOTE | 2020-07-30 19:35 | NUR ---
NURSE NOTES: Received report from gracie cormier. patient is on bed,asleep. upper sorbian speaking.no moaning or facial grimacing noted. nc at 2lpm, no sob. ambulates. per genia" SR/ST PAC'S, PVC'S throughout her shift.; with episode of hypotension of 80's; md bess is awake with an order to monitor" cardiac monitor technician in placed. iv access on the right hand and left forearm, saline lock. bed locked and in lowest position. call light and light button within easy reach. will continue plan of care.
--- NOTE | 2020-07-30 19:37 | NUR ---
NURSE HAND-OFF REPORT: Important Events on Shift: stable Patient Status: Diet: Pending Orders: Pending Results/Labs: Pending MD notification: Latest Vital Signs: Temperature 98.1 , Pulse 101 , B/P 127 /85 , Respiratory Rate 18 , O2 SAT 90 , Nasal Cannula, O2 Flow Rate 14.0 . Vital Sign Comment: x EKG Rhythm: Sinus Rhythm Rhythm change?: N MD Notified?: Leena Huggins MD Response: Latest Ryan Fall Score: 45 Fall Risk: High Risk Safety Measures: Call light Within Reach, Bed Alarm Zone 1, Side Rails Side Rails x3, Bed position Low and Locked. Fall Precautions: Yellow Socks Patient Fall Education Report given to TITA Lee.
[2020-07-30 20:00] VITALS: BP 103/81
--- NOTE | 2020-07-30 20:34 | NUR ---
NURSE NOTES: md benavides is aware regarding the negative covid 19 PCR result and receive order to d/c isolation. charge nurse is aware.
[2020-07-30] MEDS: Atorvastatin 80mg tab ORAL SCH (21:31)
[2020-07-31] VITALS: BP 120/78
[2020-07-31 04:00] VITALS: BP 117/87
[2020-07-31] MEDS: Metoprolol Tartrate 50mg tab ORAL SCH ×3 (05:49→18:04)
[2020-07-31] MEDS: chlordiazePOXIDE 25mg Cap ORAL SCH ×3 (05:49→21:08)
--- NOTE | 2020-07-31 06:17 | NUR ---
NURSE HAND-OFF REPORT: Important Events on Shift: 02 care; safety Patient Status: stable Diet: low NA diet Pending Orders: Pending Results/Labs: Pending MD notification: Latest Vital Signs: Temperature 97.9 , Pulse 77 , B/P 120 /83 , Respiratory Rate 18 , O2 SAT 96 , Nasal Cannula, O2 Flow Rate 2.0 . Vital Sign Comment: EKG Rhythm: Sinus Rhythm Rhythm change?: N MD Notified?: Leena Huggins MD Response: Latest Ryan Fall Score: 45 Fall Risk: High Risk Safety Measures: Call light Within Reach, Bed Alarm Zone 1, Side Rails Side Rails x3, Bed position Low and Locked. Fall Precautions: Yellow Socks Patient Fall Education Addendum: 07/31/20 at 0737 by Ayana Chino RN report given to gracie fox
[2020-07-31 08:00] VITALS: BP 124/69
--- NOTE | 2020-07-31 08:10 | NUR ---
NURSE NOTES: Helped pt get out of bed to use the restroom, he reports no dizziness upon standing. Pt AOx4 able to verbalize need and has no complains of pain at this time. Pt on groundwater monitoring technician no signs of cardiac or respiratory distress. Bed is locked and in lowest position, call light within reach. Will continue to monitor pt.
[2020-07-31] MEDS: Enoxaparin 80mg Inj SUBQ SCH ×2 (09:00→21:00)
[2020-07-31] MEDS: Aspirin Baby 81mg ORAL SCH (09:29)
[2020-07-31] MEDS: dexAMETHasone 10mg/ml Inj IV SCH (09:30)
[2020-07-31] MEDS: Losartan 50mg tab ORAL SCH ×2 (09:31→21:08)
[2020-07-31] MEDS: Thiamine 100mg tab ORAL SCH (09:43)
--- NOTE | 2020-07-31 10:03 | Surgery Progress Note ---
Surgery Progress Note Subjective Symptoms: improved, tolerating diet, passing flatus, pain decreased Objective Last 24 Hour Vital Signs Date Time Temp Pulse Resp B/P (MAP) Pulse Ox O2 Delivery O2 Flow Rate FiO2 07/31/20 09:31 123/78 07/31/20 08:00 97.9 75 20 124/69 (87) 93 07/31/20 05:49 77 120/83 07/31/20 04:00 80 07/31/20 04:00 97.9 77 18 117/87 (97) 96 07/31/20 00:00 92 07/31/20 00:00 96.4 91 18 120/78 (92) 95 07/30/20 23:44 91 120/78 07/30/20 21:00 Nasal Cannula 2.0 07/30/20 21:00 99/61 07/30/20 20:16 95 Nasal Cannula 2.0 28 07/30/20 20:00 97 07/30/20 20:00 97.6 75 18 103/81 (88) 94 07/30/20 17:20 101 127/85 07/30/20 16:00 98.1 95 18 127/85 (99) 90 07/30/20 15:34 92 07/30/20 12:00 98.6 90 18 103/55 (71) 90 07/30/20 12:00 95 103/55 07/30/20 11:46 101 I&O Intake and Output 07/30/20 07/31/20 19:00 07:00 Intake Total 500 ml 550 ml Balance 500 ml 550 ml Intake Oral 500 ml 550 ml # Voids 3 Cardiovascular: RSR Respiratory: clear Abdomen: soft, non-tender, present bowel sounds, non-distended Extremities: edema, no tenderness, no cyanosis, other Laboratory Tests Test 07/30/20 10:20 Digoxin Level < 0.2 NG/ML (0.5-2.0) L Hepatitis A IgM Antibody Negative (Negative) Hepatitis B Surface Antigen Negative (Negative) Hepatitis B Core IgM Antibody Negative (Negative) Hepatitis C Antibody <0.1 s/co ratio HIV (1&2) Antibody Rapid Pending Plan Problems: (1) Cellulitis of lower extremity Assessment & Plan: Pt presented on admission with wound of unknown etiology R 1st metatarsal. Pt's hygiene is grossly neglected. To properly assess wound,pt's feet required e xtensive scrubbing to remove caked on dirt both feet. erythema and edema noted mild cellulitis Base of wound dorso/lateral R 1st metatarsalis darío with loose edges(L)2.3cm x (W)4cm. No exudate noted. NO erythema,swelling or changes in skin temp periwound. Second laceration noted to plantar-base of R 1st metatarsal(L)0.3cm x (W)1.2cm. Base of wound is darío. Edges are adherent to base of wound. No erythema swelling or changes in skin temp periwound. L foot 3rd and 4th metatarsals noted to have small ulcers that are dry . No surrounding erythema noted. Tx.Plan: Apply Betadine to dorsal and plantar wounds R 1st metatarsal. Cover with Gauze and wrap with Kerlix. Change every 3 days and prn. Swab ulcers dorsal L 3rd and 4th Metatarsals with Betadine Daily. Leave open to Air. turn q2h off load pressure nutritional optimization (2) Hypokalemia (3) Leukocytosis, unspecified (4) NSTEMI (non-ST elevated myocardial infarction) (5) Atrial fibrillation with RVR (6) Alcohol intoxication Dino Angelo Jul 31, 2020 10:03
[2020-07-31] MEDS: cefTRIAXone 1 GM in D5W 55 ML IVPB SCH (10:30)
--- NOTE | 2020-07-31 11:23 | Pulmonology Progress Note ---
Subjective ROS Limited/Unobtainable: Yes Interval Events: None new reported Constitutional: Denies: fever, chills HEENT: Repors: no symptoms Respiratory: Reports: shortness of breath Cardiovascular: Reports: no symptoms Gastrointestinal/Abdominal: Denies: nausea, vomiting, diarrhea Genitourinary: Reports: no symptoms Musculoskeletal: Denies: pain Allergies: Coded Allergies: No Known Allergies (Unverified , 10/24/15) Objective Last 24 Hour Vital Signs Date Time Temp Pulse Resp B/P (MAP) Pulse Ox O2 Delivery O2 Flow Rate FiO2 07/31/20 09:31 123/78 07/31/20 08:00 97.9 75 20 124/69 (87) 93 07/31/20 05:49 77 120/83 07/31/20 04:00 80 07/31/20 04:00 97.9 77 18 117/87 (97) 96 07/31/20 00:00 92 07/31/20 00:00 96.4 91 18 120/78 (92) 95 07/30/20 23:44 91 120/78 07/30/20 21:00 Nasal Cannula 2.0 07/30/20 21:00 99/61 07/30/20 20:16 95 Nasal Cannula 2.0 28 07/30/20 20:00 97 07/30/20 20:00 97.6 75 18 103/81 (88) 94 07/30/20 17:20 101 127/85 07/30/20 16:00 98.1 95 18 127/85 (99) 90 07/30/20 15:34 92 07/30/20 12:00 98.6 90 18 103/55 (71) 90 07/30/20 12:00 95 103/55 07/30/20 11:46 101 Intake and Output 07/30/20 07/31/20 19:00 07:00 Intake Total 500 ml 550 ml Balance 500 ml 550 ml Intake Oral 500 ml 550 ml # Voids 3 General Appearance: no acute distress HEENT: atraumatic Respiratory: crackles/rales Cardiovascular: regular rhythm, tachycardia Abdomen: soft, non tender Current Medications Medications (Trade) Dose Ordered Sig/Evan Route PRN Reason Start Time Stop Time Status Last Admin Dose Admin Acetaminophen (Tylenol) 650 mg Q4H PRN ORAL Mild Pain (Pain Scale 1-3) 07/27/20 13:30 3/18/21 13:29 07/30/20 06:30 Aspirin (ASA) 81 mg DAILY ORAL 07/28/20 09:00 09/11/20 08:59 07/31/20 09:29 Atorvastatin Calcium (Lipitor) 80 mg BEDTIME ORAL 07/27/20 21:00 10/25/20 20:59 07/30/20 21:31 Ceftriaxone Sodium 1 gm/ Dextrose 55 ml @ 110 mls/hr Q24H IVPB 07/28/20 11:00 08/04/20 10:59 07/31/20 10:30 Chlordiazepoxide (Librium) 25 mg EVERY 8 HOURS ORAL 07/27/20 22:00 08/03/20 21:59 07/31/20 05:49 Clopidogrel Bisulfate (Plavix) 75 mg DAILY ORAL 07/28/20 09:00 08/27/20 08:59 07/29/20 08:58 Dexamethasone Sodium Phosphate (Decadron 10mg/ ml Inj) 6 mg DAILY IV 07/30/20 11:30 08/08/20 09:01 07/31/20 09:30 Enoxaparin Sodium (Lovenox) 80 mg EVERY 12 HOURS SUBQ 07/27/20 21:00 10/25/20 20:59 07/27/20 21:24 Furosemide (Lasix) 40 mg DAILY IV 07/27/20 16:15 08/26/20 16:14 07/31/20 09:30 Hydralazine HCl (Apresoline) 20 mg Q6H PRN IV For High Blood Pressure 07/27/20 16:15 10/25/20 16:14 07/27/20 16:18 Losartan Potassium (Cozaar) 50 mg EVERY 12 HOURS ORAL 07/27/20 21:00 08/26/20 20:59 07/31/20 09:31 Metoprolol Tartrate (Lopressor) 50 mg EVERY 6 HOURS ORAL 07/28/20 09:15 10/25/20 16:14 07/31/20 05:49 Nitroglycerin (Ntg) 0.4 mg Q5M PRN SL Prn Chest Pain 07/27/20 16:15 08/26/20 16:14 07/27/20 16:24 Ondansetron HCl (Zofran) 4 mg Q4H PRN IVP Nausea & Vomiting 07/27/20 22:45 08/26/20 22:44 07/27/20 22:59 Thiamine HCl (Vitamin B1) 100 mg DAILY ORAL 07/28/20 09:00 08/27/20 08:59 07/31/20 09:43 Assessment/Plan Assessment/Plan 1. High D-dimer. 2. AICD. 3. CHF. 4. CAD. 5. Leukocytosis; -WBC trending down; On antibiotics 6. Hypokalemia 7. Thrombocytopenia Continue rate control with digoxin. Cardiology following. Beta-anay has also been started. The patient has also received amiodarone. Continue medications. Diurese as needed. Hernandez Sheridan MD Jul 31, 2020 11:23
[2020-07-31 12:00] VITALS: BP 130/85
--- NOTE | 2020-07-31 14:11 | Infectious Diseases Prog Note ---
Assessment/Plan Assessment/Plan A; 1. Pneumonia COVID-19 rapid & PCR : negative. 2. Non ST elevation Myocardial infarction. 3. Congestive heart failure. 4. Hypertension. 5. Atrial fibrillation PLAN: 1. Continue ceftriaxone. Subjective ROS Limited/Unobtainable: Yes Allergies: Coded Allergies: No Known Allergies (Unverified , 10/24/15) Objective Last 24 Hour Vital Signs Date Time Temp Pulse Resp B/P (MAP) Pulse Ox O2 Delivery O2 Flow Rate FiO2 07/31/20 12:18 99 130/85 07/31/20 12:00 101 07/31/20 09:31 123/78 07/31/20 08:00 102 07/31/20 08:00 97.9 75 20 124/69 (87) 93 07/31/20 05:49 77 120/83 07/31/20 04:00 80 07/31/20 04:00 97.9 77 18 117/87 (97) 96 07/31/20 00:00 92 07/31/20 00:00 96.4 91 18 120/78 (92) 95 07/30/20 23:44 91 120/78 07/30/20 21:00 Nasal Cannula 2.0 07/30/20 21:00 99/61 07/30/20 20:16 95 Nasal Cannula 2.0 28 07/30/20 20:00 97 07/30/20 20:00 97.6 75 18 103/81 (88) 94 07/30/20 17:20 101 127/85 07/30/20 16:00 98.1 95 18 127/85 (99) 90 07/30/20 15:34 92 Height (Feet): 5 Height (Inches): 7.00 Weight (Pounds): 185 HEENT: mucous membranes moist Respiratory/Chest: lungs clear Cardiovascular: normal rate Abdomen: soft, non tender Extremities: no edema Neurologic/Psychiatric: other - sleeping Current Medications Medications (Trade) Dose Ordered Sig/Evan Route PRN Reason Start Time Stop Time Status Last Admin Dose Admin Acetaminophen (Tylenol) 650 mg Q4H PRN ORAL Mild Pain (Pain Scale 1-3) 07/27/20 13:30 08/26/20 13:29 07/31/20 12:23 Aspirin (ASA) 81 mg DAILY ORAL 07/28/20 09:00 09/11/20 08:59 07/31/20 09:29 Atorvastatin Calcium (Lipitor) 80 mg BEDTIME ORAL 07/27/20 21:00 10/25/20 20:59 07/30/20 21:31 Ceftriaxone Sodium 1 gm/ Dextrose 55 ml @ 110 mls/hr Q24H IVPB 07/28/20 11:00 08/04/20 10:59 07/31/20 10:30 Chlordiazepoxide (Librium) 25 mg EVERY 8 HOURS ORAL 07/27/20 22:00 08/03/20 21:59 07/31/20 05:49 Clopidogrel Bisulfate (Plavix) 75 mg DAILY ORAL 07/28/20 09:00 08/27/20 08:59 07/29/20 08:58 Enoxaparin Sodium (Lovenox) 80 mg EVERY 12 HOURS SUBQ 07/27/20 21:00 10/25/20 20:59 07/27/20 21:24 Furosemide (Lasix) 40 mg DAILY IV 07/27/20 16:15 08/26/20 16:14 07/31/20 09:30 Hydralazine HCl (Apresoline) 20 mg Q6H PRN IV For High Blood Pressure 07/27/20 16:15 10/25/20 16:14 07/27/20 16:18 Losartan Potassium (Cozaar) 50 mg EVERY 12 HOURS ORAL 07/27/20 21:00 08/26/20 20:59 07/31/20 09:31 Metoprolol Tartrate (Lopressor) 50 mg EVERY 6 HOURS ORAL 07/28/20 09:15 10/25/20 16:14 07/31/20 12:18 Nitroglycerin (Ntg) 0.4 mg Q5M PRN SL Prn Chest Pain 07/27/20 16:15 08/26/20 16:14 07/27/20 16:24 Ondansetron HCl (Zofran) 4 mg Q4H PRN IVP Nausea & Vomiting 07/27/20 22:45 08/26/20 22:44 07/27/20 22:59 Thiamine HCl (Vitamin B1) 100 mg DAILY ORAL 07/28/20 09:00 08/27/20 08:59 07/31/20 09:43 Patric Cleary MD Jul 31, 2020 14:11
--- NOTE | 2020-07-31 14:33 | NUR ---
NURSE NOTES: change in rhythm notified doctor Johnnie.
--- NOTE | 2020-07-31 14:48 | General Progress Note ---
Subjective Allergies: Coded Allergies: No Known Allergies (Unverified , 10/24/15) Subjective doing better more awake Objective Last 24 Hour Vital Signs Date Time Temp Pulse Resp B/P (MAP) Pulse Ox O2 Delivery O2 Flow Rate FiO2 07/31/20 12:18 99 130/85 07/31/20 12:00 101 07/31/20 09:31 123/78 07/31/20 08:00 102 07/31/20 08:00 97.9 75 20 124/69 (87) 93 07/31/20 05:49 77 120/83 07/31/20 04:00 80 07/31/20 04:00 97.9 77 18 117/87 (97) 96 07/31/20 00:00 92 07/31/20 00:00 96.4 91 18 120/78 (92) 95 07/30/20 23:44 91 120/78 07/30/20 21:00 Nasal Cannula 2.0 07/30/20 21:00 99/61 07/30/20 20:16 95 Nasal Cannula 2.0 28 07/30/20 20:00 97 07/30/20 20:00 97.6 75 18 103/81 (88) 94 07/30/20 17:20 101 127/85 07/30/20 16:00 98.1 95 18 127/85 (99) 90 07/30/20 15:34 92 Intake and Output 07/30/20 07/31/20 19:00 07:00 Intake Total 500 ml 550 ml Balance 500 ml 550 ml Intake Oral 500 ml 550 ml # Voids 3 Height (Feet): 5 Height (Inches): 7.00 Weight (Pounds): 185 EENT: PERRL/EOMI Neck: supple Cardiovascular: regular rhythm Respiratory/Chest: crackles/rales Abdomen: non tender, soft Assessment/Plan Status: progressing Assessment/Plan: sob afib pna chf etoh abused pna iv abx iv sterids librium cont o2 pumonary tx pulmonary on consult transfer to med surg Kadeem Luis MD Jul 31, 2020 14:48
--- NOTE | 2020-07-31 15:21 | NUR ---
NURSE NOTES: left a message for PA/Joseluis about rhythm change.
--- NOTE | 2020-07-31 15:23 | NUR ---
NURSE NOTES: transfer to med surg order cancelled due to pt's cardiac rhythm change.
[2020-07-31 16:00] VITALS: BP 124/81
--- NOTE | 2020-07-31 17:59 | Cardiology Progress Note ---
Assessment/Plan Status Narrative 1. NSTEMI with troponin elevation ASA, Plavix, and Lovenox 2. Afib with RVR Bb and digoxin for rate and rhythm control 3. Multifocal PNA and respiratory failure - improved, was on NRB now NC Leukocytosis h/o recent COVID-19, repeat swab pending 4. CHF acute on chronic systolic on diastolic HF, reduced EF 40%, s/p AICD IV Lasix for diuresis BNP severely elevated 5. HTN and hypertensive urgency improved on multiple antihypertensives 6. Hx of substance abuse 7. Psychiatric disorder and homelessness 8. N/V 9. Thrombocytopenia 10. NSVT Short run of NSVT today, pt has AICD. CTA chest negative for PE. Acute NSTEMI will be managed medically, pt is not a good candidate for intervention at this time. Aggressive diuresis as tolerated, rate and rhythm control with Bb and digoxin. Subjective Subjective NSVT today, denies chest pain Objective Last 24 Hour Vital Signs Date Time Temp Pulse Resp B/P (MAP) Pulse Ox O2 Delivery O2 Flow Rate FiO2 07/31/20 12:18 99 130/85 07/31/20 12:00 101 07/31/20 12:00 97.9 64 20 130/85 (100) 96 07/31/20 09:31 123/78 07/31/20 09:00 Room Air 07/31/20 08:00 102 07/31/20 08:00 97.9 75 20 124/69 (87) 93 07/31/20 05:49 77 120/83 07/31/20 04:00 80 07/31/20 04:00 97.9 77 18 117/87 (97) 96 07/31/20 00:00 92 07/31/20 00:00 96.4 91 18 120/78 (92) 95 07/30/20 23:44 91 120/78 07/30/20 21:00 Nasal Cannula 2.0 07/30/20 21:00 99/61 07/30/20 20:16 95 Nasal Cannula 2.0 28 07/30/20 20:00 97 07/30/20 20:00 97.6 75 18 103/81 (88) 94 Intake and Output 07/30/20 07/31/20 19:00 07:00 Intake Total 500 ml 550 ml Balance 500 ml 550 ml Intake Oral 500 ml 550 ml # Voids 3 Arlen Huggins PA-C Jul 31, 2020 17:59
--- NOTE | 2020-07-31 20:02 | NUR ---
NURSE NOTES: Received patient in bed, belizean speaker, awake, alert, oriented x3, on 2 liters of oxygen via NC, poor appetite, low NA diet. IV sites are clean dry and intact, ambulatory but with unsteady gate. Call light is within reach, bed is lowered, locked, alarm is on, will continue to monitor for comfort and safety.
[2020-07-31 20:26] VITALS: BP 112/76
[2020-07-31] MEDS: Atorvastatin 80mg tab ORAL SCH (21:08)
[2020-08-01] VITALS: BP 107/51
--- NOTE | 2020-08-01 02:49 | NUR ---
at 02 am patient had another episode of 12 beats of v tach, VSS, patient is asymptomatic. AUDREY Mckinley was made aware via phone message, NATASHA was made aware as well.
[2020-08-01 04:17] VITALS: BP 123/59
[2020-08-01] MEDS: chlordiazePOXIDE 25mg Cap ORAL SCH ×3 (05:18→21:01)
--- NOTE | 2020-08-01 07:01 | NUR ---
NURSE HAND-OFF REPORT: Important Events on Shift:episode of 12 beats V tach Patient Status: Full code Diet: low sodium Pending Orders: Pending Results/Labs: Pending MD notification: Latest Vital Signs: Temperature 97.6 , Pulse 79 , B/P 126 /74 , Respiratory Rate 20 , O2 SAT 100 , Nasal Cannula, O2 Flow Rate 2.0 . Vital Sign Comment: EKG Rhythm: Sinus Rhythm Rhythm change?: N MD Notified?: Evin Dexter MD Response: Latest Ryan Fall Score: 45 Fall Risk: High Risk Safety Measures: Call light Within Reach, Bed Alarm Zone 1, Side Rails Side Rails x3, Bed position Low and Locked. Fall Precautions: Yellow Socks Patient Fall Education Report given to Irma RIVERS
[2020-08-01 08:00] VITALS: BP 136/65
--- NOTE | 2020-08-01 08:01 | Pulmonology Progress Note ---
Subjective ROS Limited/Unobtainable: Yes Interval Events: None new reported Constitutional: Denies: fever, chills HEENT: Repors: no symptoms Respiratory: Reports: shortness of breath Cardiovascular: Reports: no symptoms Gastrointestinal/Abdominal: Denies: nausea, vomiting, diarrhea Genitourinary: Reports: no symptoms Musculoskeletal: Denies: pain Allergies: Coded Allergies: No Known Allergies (Unverified , 10/24/15) Objective Last 24 Hour Vital Signs Date Time Temp Pulse Resp B/P (MAP) Pulse Ox O2 Delivery O2 Flow Rate FiO2 08/01/20 05:18 79 126/74 08/01/20 04:17 97.6 64 20 123/59 (80) 100 08/01/20 04:00 88 08/01/20 00:00 107 57/61 08/01/20 00:00 98.1 61 18 107/51 (69) 96 08/01/20 00:00 79 07/31/20 21:19 Nasal Cannula 2.0 07/31/20 21:08 117/76 07/31/20 20:26 97.6 54 20 112/76 (88) 97 54 07/31/20 20:07 97 Nasal Cannula 2.0 28 07/31/20 20:00 78 07/31/20 18:04 100 124/81 07/31/20 16:00 97.5 95 18 124/81 (95) 90 07/31/20 16:00 86 07/31/20 14:33 101 07/31/20 12:18 99 130/85 07/31/20 12:00 101 07/31/20 12:00 97.9 64 20 130/85 (100) 96 07/31/20 09:31 123/78 07/31/20 09:00 Room Air Intake and Output 07/31/20 08/01/20 19:00 07:00 Intake Total 400 ml Output Total 600 ml Balance -200 ml Intake Oral 400 ml Output Urine Total 600 ml # Voids 4 General Appearance: no acute distress HEENT: atraumatic Respiratory: crackles/rales Cardiovascular: regular rhythm, tachycardia Abdomen: soft, non tender Laboratory Tests 07/31/20 19:23: Digoxin Level < 0.3L Current Medications Medications (Trade) Dose Ordered Sig/Evan Route PRN Reason Start Time Stop Time Status Last Admin Dose Admin Acetaminophen (Tylenol) 650 mg Q4H PRN ORAL Mild Pain (Pain Scale 1-3) 07/27/20 13:30 08/26/20 13:29 07/31/20 12:23 Aspirin (ASA) 81 mg DAILY ORAL 07/28/20 09:00 09/11/20 08:59 07/31/20 09:29 Atorvastatin Calcium (Lipitor) 80 mg BEDTIME ORAL 07/27/20 21:00 10/25/20 20:59 07/31/20 21:08 Ceftriaxone Sodium 1 gm/ Dextrose 55 ml @ 110 mls/hr Q24H IVPB 07/28/20 11:00 08/04/20 10:59 07/31/20 10:30 Chlordiazepoxide (Librium) 25 mg EVERY 8 HOURS ORAL 07/27/20 22:00 08/03/20 21:59 08/01/20 05:18 Clopidogrel Bisulfate (Plavix) 75 mg DAILY ORAL 07/28/20 09:00 08/27/20 08:59 07/29/20 08:58 Enoxaparin Sodium (Lovenox) 80 mg EVERY 12 HOURS SUBQ 07/27/20 21:00 10/25/20 20:59 07/27/20 21:24 Furosemide (Lasix) 40 mg DAILY IV 07/27/20 16:15 08/26/20 16:14 07/31/20 09:30 Hydralazine HCl (Apresoline) 20 mg Q6H PRN IV For High Blood Pressure 07/27/20 16:15 10/25/20 16:14 07/27/20 16:18 Losartan Potassium (Cozaar) 50 mg EVERY 12 HOURS ORAL 07/27/20 21:00 08/26/20 20:59 07/31/20 21:08 Metoprolol Tartrate (Lopressor) 50 mg EVERY 6 HOURS ORAL 08/01/20 00:00 10/25/20 16:14 08/01/20 05:18 Nitroglycerin (Ntg) 0.4 mg Q5M PRN SL Prn Chest Pain 07/27/20 16:15 08/26/20 16:14 07/27/20 16:24 Ondansetron HCl (Zofran) 4 mg Q4H PRN IVP Nausea & Vomiting 07/27/20 22:45 08/26/20 22:44 07/27/20 22:59 Thiamine HCl (Vitamin B1) 100 mg DAILY ORAL 07/28/20 09:00 08/27/20 08:59 07/31/20 09:43 Assessment/Plan Assessment/Plan 1. High D-dimer. 2. AICD. 3. CHF. 4. CAD. 5. Leukocytosis; -WBC trending down; On antibiotics 6. Hypokalemia 7. Thrombocytopenia Continue rate control with digoxin. Cardiology following. Beta-anay has also been started. The patient has also received amiodarone. Continue medications. Diurese as needed. Hernandez Sheridan MD Aug 01, 2020 08:01
--- NOTE | 2020-08-01 08:16 | NUR ---
NURSE NOTES: pt having breakfast at bed side. Aox-3-4 gets forgetful at times. night nurse endorsed that pt had 12 beats of vtach again last night, and single needle operator was made aware. Pt on library monitor, no signs of cardiac or respiratory distress at this time. pt is on 2L O2 for comfort. Bed is locked and in lowest position. Call light within reach. Will continue to monitor pt.
[2020-08-01] MEDS: Enoxaparin 80mg Inj SUBQ SCH ×2 (09:00→20:56)
[2020-08-01] MEDS: Losartan 50mg tab ORAL SCH ×2 (09:24→20:54)
[2020-08-01] MEDS: Thiamine 100mg tab ORAL SCH (09:24)
[2020-08-01] MEDS: Aspirin Baby 81mg ORAL SCH (09:24)
[2020-08-01] MEDS: cefTRIAXone 1 GM in D5W 55 ML IVPB SCH (10:22)
[2020-08-01 12:00] VITALS: BP 127/64
--- NOTE | 2020-08-01 12:36 | Cardiology Progress Note ---
Assessment/Plan Status Narrative 1. NSTEMI with troponin elevation ASA, Plavix, and Lovenox 2. Afib with RVR Bb and digoxin for rate and rhythm control 3. Multifocal PNA and respiratory failure - improved, was on NRB now NC Leukocytosis h/o recent COVID-19, repeat swab pending 4. CHF acute on chronic systolic on diastolic HF, reduced EF 40%, s/p AICD IV Lasix for diuresis BNP severely elevated 5. HTN and hypertensive urgency improved on multiple antihypertensives 6. Hx of substance abuse 7. Psychiatric disorder and homelessness 8. N/V 9. Thrombocytopenia 10. NSVT Short run of NSVT today, pt has AICD. CTA chest negative for PE. Acute NSTEMI will be managed medically, pt is not a good candidate for intervention at this time. Aggressive diuresis as tolerated, rate and rhythm control with Bb and digoxin. Subjective Subjective NSVT today, denies chest pain Objective Last 24 Hour Vital Signs Date Time Temp Pulse Resp B/P (MAP) Pulse Ox O2 Delivery O2 Flow Rate FiO2 08/01/20 09:24 125/58 08/01/20 08:00 77 08/01/20 05:18 79 126/74 08/01/20 04:17 97.6 64 20 123/59 (80) 100 08/01/20 04:00 88 08/01/20 00:00 107 57/61 08/01/20 00:00 98.1 61 18 107/51 (69) 96 08/01/20 00:00 79 07/31/20 21:19 Nasal Cannula 2.0 07/31/20 21:08 117/76 07/31/20 20:26 97.6 54 20 112/76 (88) 97 54 07/31/20 20:07 97 Nasal Cannula 2.0 28 07/31/20 20:00 78 07/31/20 18:04 100 124/81 07/31/20 16:00 97.5 95 18 124/81 (95) 90 07/31/20 16:00 86 07/31/20 14:33 101 Intake and Output 07/31/20 08/01/20 19:00 07:00 Intake Total 400 ml Output Total 600 ml Balance -200 ml Intake Oral 400 ml Output Urine Total 600 ml # Voids 4 Laboratory Tests Test 07/31/20 19:23 Digoxin Level < 0.3 NG/ML (0.5-2.0) L Arlen Huggins PA-C Aug 01, 2020 12:36
--- NOTE | 2020-08-01 13:01 | Surgery Progress Note ---
Surgery Progress Note Subjective Symptoms: improved, tolerating diet, passing flatus Objective Last 24 Hour Vital Signs Date Time Temp Pulse Resp B/P (MAP) Pulse Ox O2 Delivery O2 Flow Rate FiO2 08/01/20 12:44 87 119/69 08/01/20 09:24 125/58 08/01/20 08:00 77 08/01/20 05:18 79 126/74 08/01/20 04:17 97.6 64 20 123/59 (80) 100 08/01/20 04:00 88 08/01/20 00:00 107 57/61 08/01/20 00:00 98.1 61 18 107/51 (69) 96 08/01/20 00:00 79 07/31/20 21:19 Nasal Cannula 2.0 07/31/20 21:08 117/76 07/31/20 20:26 97.6 54 20 112/76 (88) 97 54 07/31/20 20:07 97 Nasal Cannula 2.0 28 07/31/20 20:00 78 07/31/20 18:04 100 124/81 07/31/20 16:00 97.5 95 18 124/81 (95) 90 07/31/20 16:00 86 07/31/20 14:33 101 I&O Intake and Output 07/31/20 08/01/20 19:00 07:00 Intake Total 400 ml Output Total 600 ml Balance -200 ml Intake Oral 400 ml Output Urine Total 600 ml # Voids 4 Dressing: saturated Cardiovascular: RSR Respiratory: clear, decreased breath sounds Abdomen: soft, non-tender, present bowel sounds, non-distended Extremities: no edema, no tenderness, no cyanosis Laboratory Tests Test 07/31/20 19:23 Digoxin Level < 0.3 NG/ML (0.5-2.0) L Plan Problems: (1) Cellulitis of lower extremity Assessment & Plan: Pt presented on admission with wound of unknown etiology R 1st metatarsal. Pt's hygiene is grossly neglected. To properly assess wound,pt's feet required extensive scrubbing to remove caked on dirt both feet. erythema and edema noted mild cellulitis Base of wound dorso/lateral R 1st metatarsalis darío with loose edges(L)2.3cm x (W)4cm. No exudate noted. NO erythema,swelling or changes in skin temp periwound. Second laceration noted to plantar-base of R 1st metatarsal(L)0.3cm x (W)1.2cm. Base of wound is darío. Edges are adherent to base of wound. No erythema swelling or changes in skin temp periwound. L foot 3rd and 4th metatarsals noted to have small ulcers that are dry . No surrounding erythema noted. Tx.Plan: Apply Betadine to dorsal and plantar wounds R 1st metatarsal. Cover with Gauze and wrap with Kerlix. Change every 3 days and prn. Swab ulcers dorsal L 3rd and 4th Metatarsals with Betadine Daily. Leave open to Air. turn q2h off load pressure nutritional optimization (2) Hypokalemia (3) Leukocytosis, unspecified (4) NSTEMI (non-ST elevated myocardial infarction) (5) Atrial fibrillation with RVR (6) Alcohol intoxication Dino Angelo Aug 01, 2020 13:01
[2020-08-01 16:01] VITALS: BP 110/56
[2020-08-01 16:49] LABS: HEMATOCRIT 47.1 % (42.0-52.0); HEMOGLOBIN 14.9 G/DL (14.2-18.0); MEAN CORPUSCULAR VOLUME 96 FL (80-99); PLATELET COUNT 157 K/UL (150-450); RED BLOOD COUNT 4.93 M/UL (4.70-6.10); RED CELL DISTRIBUTION WIDTH 13.7 % (11.6-14.8); WHITE BLOOD COUNT 15.6 K/UL (4.8-10.8)
[2020-08-01 17:11] LABS: ALANINE AMINOTRANSFERASE 61 U/L (12-78); ALBUMIN 2.5 G/DL (3.4-5.0); ALBUMIN/GLOBULIN RATIO 0.5 (1.0-2.7); ALKALINE PHOSPHATASE 106 U/L (46-116); ANION GAP 7 mmol/L (5-15); ASPARTATE AMINO TRANSFERASE 51 U/L (15-37); BILIRUBIN,TOTAL 0.6 MG/DL (0.2-1.0); BLOOD UREA NITROGEN 26 mg/dL (7-18); CALCIUM 8.7 MG/DL (8.5-10.1); CARBON DIOXIDE 29 MMOL/L (21-32); CHLORIDE 103 MMOL/L (98-107); CREATININE 0.9 MG/DL (0.55-1.30); SODIUM 139 MMOL/L (136-145)
--- NOTE | 2020-08-01 19:10 | General Progress Note ---
Subjective Allergies: Coded Allergies: No Known Allergies (Unverified , 10/24/15) Subjective doing better more awake Objective Last 24 Hour Vital Signs Date Time Temp Pulse Resp B/P (MAP) Pulse Ox O2 Delivery O2 Flow Rate FiO2 08/01/20 18:37 98 122/71 08/01/20 16:01 97.7 61 20 110/56 (74) 98 08/01/20 16:00 81 08/01/20 12:44 87 119/69 08/01/20 12:00 97.6 64 20 127/64 (85) 100 08/01/20 12:00 102 08/01/20 09:24 125/58 08/01/20 09:00 Room Air 2.0 08/01/20 08:00 77 08/01/20 08:00 97.6 62 20 136/65 (88) 98 08/01/20 05:18 79 126/74 08/01/20 04:17 97.6 64 20 123/59 (80) 100 08/01/20 04:00 88 08/01/20 00:00 107 57/61 08/01/20 00:00 98.1 61 18 107/51 (69) 96 08/01/20 00:00 79 07/31/20 21:19 Nasal Cannula 2.0 07/31/20 21:08 117/76 07/31/20 20:26 97.6 54 20 112/76 (88) 97 54 07/31/20 20:07 97 Nasal Cannula 2.0 28 07/31/20 20:00 78 Intake and Output 07/31/20 08/01/20 19:00 07:00 Intake Total 400 ml Output Total 600 ml Balance -200 ml Intake Oral 400 ml Output Urine Total 600 ml # Voids 4 Laboratory Tests 07/31/20 19:23: Digoxin Level < 0.3L 08/01/20 16:25: White Blood Count 15.6H, Red Blood Count 4.93, Hemoglobin 14.9, Hematocrit 47.1, Mean Corpuscular Volume 96, Mean Corpuscular Hemoglobin 30.2, Mean Corpuscular Hemoglobin Concent 31.6L, Red Cell Distribution Width 13.7, Platelet Count 157, Mean Platelet Volume 10.5H, Neutrophils (%) (Auto) , Lymphocytes (%) (Auto) , Monocytes (%) (Auto) , Eosinophils (%) (Auto) , Basophils (%) (Auto) , Differential Total Cells Counted 100, Neutrophils % (Manual) 68, Lymphocytes % (Manual) 10L, Monocytes % (Manual) 18H, Eosinophils % (Manual) 1, Basophils % (Manual) 0, Band Neutrophils 3, Platelet Estimate DecreasedL, Platelet Morphology Normal, Red Blood Cell Morphology Normal, Sodium Level 139, Potassium Level 3.0L, Chloride Level 103, Carbon Dioxide Level 29, Anion Gap 7, Blood Urea Nitrogen 26H, Creatinine 0.9, Estimat Glomerular Filtration Rate > 60, Glucose Level 103, Calcium Level 8.7, Total Bilirubin 0.6, Aspartate Amino Transf (AST/SGOT) 51H, Alanine Aminotransferase (ALT/SGPT) 61, Alkaline Phosphatase 106, Total Protein 7.4, Albumin 2.5L, Globulin 4.9, Albumin/Globulin Ratio 0.5L 08/01/20 17:00: Stool Occult Blood [Pending] Height (Feet): 5 Height (Inches): 7.00 Weight (Pounds): 185 General Appearance: alert EENT: PERRL/EOMI Neck: supple Cardiovascular: regular rhythm Respiratory/Chest: crackles/rales Abdomen: non tender, soft Extremities: non-tender Assessment/Plan Status: stable Assessment/Plan: sob afib pna chf etoh abused pna hypokalemia kcl replacement iv abx iv sterids librium cont o2 pumonary tx pulmonary on consult transfer to med surg Kadeem Luis MD Aug 01, 2020 19:10
--- NOTE | 2020-08-01 19:48 | NUR ---
NURSE HAND-OFF REPORT: Important Events on Shift:[]pt. had a BM and states he might be bleeding, OB stool was collected. pt is on 2L O2 but keeps taking it off. He desats when he uses the restroom Patient Status: []full Diet: []low sodium Pending Orders: [] Pending Results/Labs:[] Pending MD notification:[] Latest Vital Signs: Temperature 97.7 , Pulse 98 , B/P 122 /71 , Respiratory Rate 20 , O2 SAT 98 , Nasal Cannula, O2 Flow Rate 2.0 . Vital Sign Comment: [] EKG Rhythm: sr w/PVC Rhythm change?: N MD Notified?: Evin Dexter MD Response: Latest Ryan Fall Score: 45 Fall Risk: High Risk Safety Measures: Call light Within Reach, Bed Alarm Zone 1, Side Rails Side Rails x3, Bed position Low and Locked. Fall Precautions: y Yellow Socks y Patient Fall Education y Report given to []. Magui/RN
[2020-08-01 20:00] VITALS: BP 127/61
[2020-08-01] MEDS: Atorvastatin 80mg tab ORAL SCH (21:01)
[2020-08-02] VITALS: BP 110/52
[2020-08-02 04:00] VITALS: BP 94/67
[2020-08-02] MEDS: chlordiazePOXIDE 25mg Cap ORAL SCH (06:03)
--- NOTE | 2020-08-02 06:34 | Hematology/Onc Progress Note ---
Assessment/Plan Assessment/Plan Status Narrative # Elevated ddimer - with a history of recent pna --> has been started on abx, ctx --> Cta is neg for pe --> consider repeat ddimer as needed --> on lovenox bid therapy (full dose anticoag) agree, also with card nstemi # Thrombocytopenia in the setting of alcohol abuse --> plt 50-->157 --> transfuse prn --> monitor for bleeding --> smear is noted # NSTEMI with troponin elevation --> ASA, Plavix, and Lovenox # Hypercoagulable disorder -- Afib with RVR --> Bb and digoxin for rate and rhythm control --> per cards # Multifocal PNA and respiratory failure - improved, was on NRB now NC --> neg testing for covid --> iso as needed --> abx # CHF acute on chronic systolic on diastolic HF, reduced EF 40%, s/p AICD # HTN and hypertensive urgency # Hx of substance abuse # Psychiatric disorder and homelessness # N/V # Cellulitis of lower extremity # Dvt ppx lovenox sq Appreciate consultation and mariela Rn Subjective HEENT: Denies: no symptoms, eye pain, blurred vision, tearing, double vision, ear pain, ear discharge, nose pain, nose congestion, throat pain, throat swelling, mouth pain, mouth swelling, other Cardiovascular: Denies: no symptoms, chest pain, edema, irregular heart rate, lightheadedness, palpitations, syncope, other Respiratory: Denies: no symptoms, cough, shortness of breath, SOB with excertion, SOB at rest, sputum, wheezing, other Genitourinary: Denies: no symptoms, burning, discharge, frequency, flank pain, hematuria, incontinence, pain, urgency, other Neurologic/Psychiatric: Denies: no symptoms, anxiety, depressed, emotional problems, headache, numbness, paresthesia, pre-existing deficit, seizure, tingling, tremors, weakness, other Endocrine: Denies: no symptoms, excessive sweating, flushing, intolerance to cold, intolerance to heat, increased hunger, increased thirst, increased urine, unexplained weight gain, unexplained weight loss, other Hematologic/Lymphatic: Denies: no symptoms, anemia, easy bleeding, easy bruising, adenopathy, other Allergies: Coded Allergies: No Known Allergies (Unverified , 10/24/15) Subjective 08/02 meds reviewed, plts have markedly improved from 55 to above 150 Objective Objective Current Medications Medications (Trade) Dose Ordered Sig/Evan Route PRN Reason Start Time Stop Time Status Last Admin Dose Admin Acetaminophen (Tylenol) 650 mg Q4H PRN ORAL Mild Pain (Pain Scale 1-3) 07/27/20 13:30 08/26/20 13:29 08/02/20 03:28 Aspirin (ASA) 81 mg DAILY ORAL 07/28/20 09:00 09/11/20 08:59 08/01/20 09:24 Atorvastatin Calcium (Lipitor) 80 mg BEDTIME ORAL 07/27/20 21:00 10/25/20 20:59 08/01/20 21:01 Ceftriaxone Sodium 1 gm/ Dextrose 55 ml @ 110 mls/hr Q24H IVPB 07/28/20 11:00 08/04/20 10:59 08/01/20 10:22 Chlordiazepoxide (Librium) 25 mg EVERY 8 HOURS ORAL 07/27/20 22:00 08/03/20 21:59 08/02/20 06:03 Clopidogrel Bisulfate (Plavix) 75 mg DAILY ORAL 07/28/20 09:00 08/27/20 08:59 07/29/20 08:58 Enoxaparin Sodium (Lovenox) 80 mg EVERY 12 HOURS SUBQ 07/27/20 21:00 10/25/20 20:59 07/27/20 21:24 Furosemide (Lasix) 40 mg DAILY IV 07/27/20 16:15 08/26/20 16:14 08/01/20 09:17 Hydralazine HCl (Apresoline) 20 mg Q6H PRN IV For High Blood Pressure 07/27/20 16:15 10/25/20 16:14 07/27/20 16:18 Losartan Potassium (Cozaar) 50 mg EVERY 12 HOURS ORAL 07/27/20 21:00 08/26/20 20:59 08/01/20 09:24 Metoprolol Tartrate (Lopressor) 50 mg EVERY 6 HOURS ORAL 08/01/20 00:00 10/25/20 16:14 08/01/20 18:37 Nitroglycerin (Ntg) 0.4 mg Q5M PRN SL Prn Chest Pain 07/27/20 16:15 08/26/20 16:14 07/27/20 16:24 Ondansetron HCl (Zofran) 4 mg Q4H PRN IVP Nausea & Vomiting 07/27/20 22:45 08/26/20 22:44 07/27/20 22:59 Thiamine HCl (Vitamin B1) 100 mg DAILY ORAL 07/28/20 09:00 08/27/20 08:59 08/01/20 09:24 Last 24 Hour Vital Signs Date Time Temp Pulse Resp B/P (MAP) Pulse Ox O2 Delivery O2 Flow Rate FiO2 08/02/20 05:20 84 99/67 08/02/20 04:00 100.8 84 18 94/67 (76) 94 08/02/20 04:00 89 08/02/20 03:58 98.9 08/02/20 00:00 99.9 51 16 110/52 (71) 94 08/02/20 00:00 85 08/02/20 00:00 51 110/52 08/01/20 21:00 Room Air 2.0 08/01/20 20:54 92/49 08/01/20 20:31 99.9 08/01/20 20:00 113 08/01/20 20:00 97.9 69 18 127/61 (83) 98 08/01/20 18:37 98 122/71 08/01/20 16:01 97.7 61 20 110/56 (74) 98 08/01/20 16:00 81 08/01/20 12:44 87 119/69 08/01/20 12:00 97.6 64 20 127/64 (85) 100 08/01/20 12:00 102 08/01/20 09:24 125/58 08/01/20 09:00 Room Air 2.0 08/01/20 08:00 77 08/01/20 08:00 97.6 62 20 136/65 (88) 98 08/01/20 05:18 79 126/74 08/01/20 04:17 97.6 64 20 123/59 (80) 100 08/01/20 04:00 88 08/01/20 00:00 107 57/61 08/01/20 00:00 98.1 61 18 107/51 (69) 96 08/01/20 00:00 79 07/31/20 21:19 Nasal Cannula 2.0 07/31/20 21:08 117/76 07/31/20 20:26 97.6 54 20 112/76 (88) 97 54 07/31/20 20:07 97 Nasal Cannula 2.0 28 07/31/20 20:00 78 07/31/20 18:04 100 124/81 07/31/20 16:00 97.5 95 18 124/81 (95) 90 07/31/20 16:00 86 07/31/20 14:33 101 07/31/20 12:18 99 130/85 07/31/20 12:00 101 07/31/20 12:00 97.9 64 20 130/85 (100) 96 07/31/20 09:31 123/78 07/31/20 09:00 Room Air 07/31/20 08:00 102 07/31/20 08:00 97.9 75 20 124/69 (87) 93 Intake and Output 08/01/20 08/02/20 19:00 07:00 # Voids 4 Labs Test 07/30/20 10:20 07/31/20 19:23 08/01/20 16:25 08/01/20 17:00 Digoxin Level < 0.2 NG/ML (0.5-2.0) < 0.3 NG/ML (0.5-2.0) Hepatitis A IgM Antibody Negative (Negative) Hepatitis B Surface Antigen Negative (Negative) Hepatitis B Core IgM Antibody Negative (Negative) Hepatitis C Antibody <0.1 s/co ratio HIV (1&2) Antibody Rapid Negative (NEGATIVE) White Blood Count 15.6 K/UL (4.8-10.8) Red Blood Count 4.93 M/UL (4.70-6.10) Hemoglobin 14.9 G/DL (14.2-18.0) Hematocrit 47.1 % (42.0-52.0) Mean Corpuscular Volume 96 FL (80-99) Mean Corpuscular Hemoglobin 30.2 PG (27.0-31.0) Mean Corpuscular Hemoglobin Concent 31.6 G/DL (32.0-36.0) Red Cell Distribution Width 13.7 % (11.6-14.8) Platelet Count 157 K/UL (150-450) Mean Platelet Volume 10.5 FL (6.5-10.1) Neutrophils (%) (Auto) % (45.0-75.0) Lymphocytes (%) (Auto) % (20.0-45.0) Monocytes (%) (Auto) % (1.0-10.0) Eosinophils (%) (Auto) % (0.0-3.0) Basophils (%) (Auto) % (0.0-2.0) Differential Total Cells Counted 100 Neutrophils % (Manual) 68 % (45-75) Lymphocytes % (Manual) 10 % (20-45) Monocytes % (Manual) 18 % (1-10) Eosinophils % (Manual) 1 % (0-3) Basophils % (Manual) 0 % (0-2) Band Neutrophils 3 % (0-8) Platelet Estimate Decreased Platelet Morphology Normal Red Blood Cell Morphology Normal Sodium Level 139 MMOL/L (136-145) Potassium Level 3.0 MMOL/L (3.5-5.1) Chloride Level 103 MMOL/L (98-107) Carbon Dioxide Level 29 MMOL/L (21-32) Anion Gap 7 mmol/L (5-15) Blood Urea Nitrogen 26 mg/dL (7-18) Creatinine 0.9 MG/DL (0.55-1.30) Estimat Glomerular Filtration Rate > 60 mL/min (>60) Glucose Level 103 MG/DL (74-106) Calcium Level 8.7 MG/DL (8.5-10.1) Total Bilirubin 0.6 MG/DL (0.2-1.0) Aspartate Amino Transf (AST/SGOT) 51 U/L (15-37) Alanine Aminotransferase (ALT/SGPT) 61 U/L (12-78) Alkaline Phosphatase 106 U/L (46-116) Total Protein 7.4 G/DL (6.4-8.2) Albumin 2.5 G/DL (3.4-5.0) Globulin 4.9 g/dL Albumin/Globulin Ratio 0.5 (1.0-2.7) Height (Feet): 5 Height (Inches): 7.00 Weight (Pounds): 185 Objective Gen: Nad Pulm: Ctab, no cwr CV: Rrr, no mgr Abd: soft, nd, nt Ext: no cce Heath Matos MD Aug 02, 2020 06:34
[2020-08-02 07:54] LABS: HEMATOCRIT 46.7 % (42.0-52.0); HEMOGLOBIN 15.1 G/DL (14.2-18.0); MEAN CORPUSCULAR VOLUME 95 FL (80-99); PLATELET COUNT 170 K/UL (150-450); RED BLOOD COUNT 4.92 M/UL (4.70-6.10); RED CELL DISTRIBUTION WIDTH 13.5 % (11.6-14.8); WHITE BLOOD COUNT 13.3 K/UL (4.8-10.8)
[2020-08-02 08:00] VITALS: BP 145/93
--- NOTE | 2020-08-02 08:26 | NUR ---
NURSE NOTES: Received patient report from Magui, RN. Patient is asleep and shows no signs of distress or pain. Patient is on 2L nasal canula and shows no signs of respiratory distress. IV is intact and patent. There are no signs of erythema, infiltration, or bleeding. Bed is in the lowest position, call light is within reach, side rails up x3. Will continue plan of care.
[2020-08-02] MEDS: Thiamine 100mg tab ORAL SCH (08:53)
[2020-08-02] MEDS: Aspirin Baby 81mg ORAL SCH (08:53)
[2020-08-02] MEDS: Losartan 50mg tab ORAL SCH ×2 (08:53→21:01)
[2020-08-02] MEDS: Enoxaparin 80mg Inj SUBQ SCH ×2 (08:54→21:04)
--- NOTE | 2020-08-02 10:59 | Surgery Progress Note ---
Surgery Progress Note Subjective Additional Comments wbc improved resting comfortable no n/v Objective Last 24 Hour Vital Signs Date Time Temp Pulse Resp B/P (MAP) Pulse Ox O2 Delivery O2 Flow Rate FiO2 08/02/20 08:53 145/93 08/02/20 08:00 99.3 75 22 145/93 (110) 93 08/02/20 05:20 84 99/67 08/02/20 04:00 100.8 84 18 94/67 (76) 94 08/02/20 04:00 89 08/02/20 03:58 98.9 08/02/20 00:00 99.9 51 16 110/52 (71) 94 08/02/20 00:00 85 08/02/20 00:00 51 110/52 08/01/20 21:00 Room Air 2.0 08/01/20 20:54 92/49 08/01/20 20:31 99.9 08/01/20 20:00 113 08/01/20 20:00 97.9 69 18 127/61 (83) 98 08/01/20 18:37 98 122/71 08/01/20 16:01 97.7 61 20 110/56 (74) 98 08/01/20 16:00 81 08/01/20 12:44 87 119/69 08/01/20 12:00 97.6 64 20 127/64 (85) 100 08/01/20 12:00 102 I&O Intake and Output 08/01/20 08/02/20 19:00 07:00 # Voids 4 2 # Bowel Movements 1 Dressing: dry Wound: clean Cardiovascular: RSR Respiratory: clear Abdomen: soft, non-tender, present bowel sounds, non-distended Extremities: no edema, no tenderness, no cyanosis Laboratory Tests Test 08/01/20 16:25 08/01/20 17:00 08/02/20 07:34 White Blood Count 15.6 K/UL (4.8-10.8) H 13.3 K/UL (4.8-10.8) H Red Blood Count 4.93 M/UL (4.70-6.10) 4.92 M/UL (4.70-6.10) Hemoglobin 14.9 G/DL (14.2-18.0) 15.1 G/DL (14.2-18.0) Hematocrit 47.1 % (42.0-52.0) 46.7 % (42.0-52.0) Mean Corpuscular Volume 96 FL (80-99) 95 FL (80-99) Mean Corpuscular Hemoglobin 30.2 PG (27.0-31.0) 30.7 PG (27.0-31.0) Mean Corpuscular Hemoglobin Concent 31.6 G/DL (32.0-36.0) L 32.4 G/DL (32.0-36.0) Red Cell Distribution Width 13.7 % (11.6-14.8) 13.5 % (11.6-14.8) Platelet Count 157 K/UL (150-450) 170 K/UL (150-450) Mean Platelet Volume 10.5 FL (6.5-10.1) H 10.1 FL (6.5-10.1) Neutrophils (%) (Auto) % (45.0-75.0) % (45.0-75.0) Lymphocytes (%) (Auto) % (20.0-45.0) % (20.0-45.0) Monocytes (%) (Auto) % (1.0-10.0) % (1.0-10.0) Eosinophils (%) (Auto) % (0.0-3.0) % (0.0-3.0) Basophils (%) (Auto) % (0.0-2.0) % (0.0-2.0) Differential Total Cells Counted 100 100 Neutrophils % (Manual) 68 % (45-75) 71 % (45-75) Lymphocytes % (Manual) 10 % (20-45) L 11 % (20-45) L Monocytes % (Manual) 18 % (1-10) H 14 % (1-10) H Eosinophils % (Manual) 1 % (0-3) 1 % (0-3) Basophils % (Manual) 0 % (0-2) 0 % (0-2) Band Neutrophils 3 % (0-8) 3 % (0-8) Platelet Estimate Decreased L Adequate Platelet Morphology Normal Normal Red Blood Cell Morphology Normal Sodium Level 139 MMOL/L (136-145) Potassium Level 3.0 MMOL/L (3.5-5.1) L Chloride Level 103 MMOL/L (98-107) Carbon Dioxide Level 29 MMOL/L (21-32) Anion Gap 7 mmol/L (5-15) Blood Urea Nitrogen 26 mg/dL (7-18) H Creatinine 0.9 MG/DL (0.55-1.30) Estimat Glomerular Filtration Rate > 60 mL/min (>60) Glucose Level 103 MG/DL (74-106) Calcium Level 8.7 MG/DL (8.5-10.1) Total Bilirubin 0.6 MG/DL (0.2-1.0) Aspartate Amino Transf (AST/SGOT) 51 U/L (15-37) H Alanine Aminotransferase (ALT/SGPT) 61 U/L (12-78) Alkaline Phosphatase 106 U/L (46-116) Total Protein 7.4 G/DL (6.4-8.2) Albumin 2.5 G/DL (3.4-5.0) L Globulin 4.9 g/dL Albumin/Globulin Ratio 0.5 (1.0-2.7) L Stool Occult Blood Positive (NEGATIVE) Hypochromasia 1+ Plan Problems: (1) Cellulitis of lower extremity Assessment & Plan: Pt presented on admission with wound of unknown etiology R 1st metatarsal. Pt's hygiene is grossly neglected. To properly assess wound,pt's feet required extensive scrubbing to remove caked on dirt both feet. erythema and edema noted mild cellulitis Base of wound dorso/lateral R 1st metatarsalis darío with loose edges(L)2.3cm x (W)4cm. No exudate noted. NO erythema,swelling or changes in skin temp periwound. Second laceration noted to plantar-base of R 1st metatarsal(L)0.3cm x (W)1.2cm. Base of wound is darío. Edges are adherent to base of wound. No erythema swelling or changes in skin temp periwound. L foot 3rd and 4th metatarsals noted to have small ulcers that are dry . No surrounding erythema noted. Tx.Plan: Apply Betadine to dorsal and plantar wounds R 1st metatarsal. Cover with Gauze and wrap with Kerlix. Change every 3 days and prn. Swab ulcers dorsal L 3rd and 4th Metatarsals with Betadine Daily. Leave open to Air. turn q2h off load pressure nutritional optimization (2) Hypokalemia (3) Leukocytosis, unspecified (4) NSTEMI (non-ST elevated myocardial infarction) (5) Atrial fibrillation with RVR (6) Alcohol intoxication Dino Angelo Aug 02, 2020 10:59
--- NOTE | 2020-08-02 11:01 | Infectious Diseases Prog Note ---
Assessment/Plan Assessment/Plan antibiotics : ceftriaxone A 1. pneumonia covid 19 test negative 2. hypertension 3. CHF 4. fever P 1. d/c ceftriaxone 2. start and continue po levoquin 4 more days 3. will follow up cultures Subjective Constitutional: Denies: fever, chills Respiratory: Denies: shortness of breath, dry cough Gastrointestinal/Abdominal: Reports: nausea - yesterday; Denies: vomiting, diarrhea Musculoskeletal: Denies: pain Allergies: Coded Allergies: No Known Allergies (Unverified , 10/24/15) Objective Last 24 Hour Vital Signs Date Time Temp Pulse Resp B/P (MAP) Pulse Ox O2 Delivery O2 Flow Rate FiO2 08/02/20 08:53 145/93 08/02/20 08:00 99.3 75 22 145/93 (110) 93 08/02/20 05:20 84 99/67 08/02/20 04:00 100.8 84 18 94/67 (76) 94 08/02/20 04:00 89 08/02/20 03:58 98.9 08/02/20 00:00 99.9 51 16 110/52 (71) 94 08/02/20 00:00 85 08/02/20 00:00 51 110/52 08/01/20 21:00 Room Air 2.0 08/01/20 20:54 92/49 08/01/20 20:31 99.9 08/01/20 20:00 113 08/01/20 20:00 97.9 69 18 127/61 (83) 98 08/01/20 18:37 98 122/71 08/01/20 16:01 97.7 61 20 110/56 (74) 98 08/01/20 16:00 81 08/01/20 12:44 87 119/69 08/01/20 12:00 97.6 64 20 127/64 (85) 100 08/01/20 12:00 102 Height (Feet): 5 Height (Inches): 7.00 Weight (Pounds): 185 Respiratory/Chest: lungs clear Cardiovascular: normal rate, regular rhythm, no gallop/murmur Abdomen: soft, non tender Extremities: no edema Laboratory Tests Test 08/01/20 16:25 08/01/20 17:00 08/02/20 07:34 White Blood Count 15.6 K/UL (4.8-10.8) H 13.3 K/UL (4.8-10.8) H Red Blood Count 4.93 M/UL (4.70-6.10) 4.92 M/UL (4.70-6.10) Hemoglobin 14.9 G/DL (14.2-18.0) 15.1 G/DL (14.2-18.0) Hematocrit 47.1 % (42.0-52.0) 46.7 % (42.0-52.0) Mean Corpuscular Volume 96 FL (80-99) 95 FL (80-99) Mean Corpuscular Hemoglobin 30.2 PG (27.0-31.0) 30.7 PG (27.0-31.0) Mean Corpuscular Hemoglobin Concent 31.6 G/DL (32.0-36.0) L 32.4 G/DL (32.0-36.0) Red Cell Distribution Width 13.7 % (11.6-14.8) 13.5 % (11.6-14.8) Platelet Count 157 K/UL (150-450) 170 K/UL (150-450) Mean Platelet Volume 10.5 FL (6.5-10.1) H 10.1 FL (6.5-10.1) Neutrophils (%) (Auto) % (45.0-75.0) % (45.0-75.0) Lymphocytes (%) (Auto) % (20.0-45.0) % (20.0-45.0) Monocytes (%) (Auto) % (1.0-10.0) % (1.0-10.0) Eosinophils (%) (Auto) % (0.0-3.0) % (0.0-3.0) Basophils (%) (Auto) % (0.0-2.0) % (0.0-2.0) Differential Total Cells Counted 100 100 Neutrophils % (Manual) 68 % (45-75) 71 % (45-75) Lymphocytes % (Manual) 10 % (20-45) L 11 % (20-45) L Monocytes % (Manual) 18 % (1-10) H 14 % (1-10) H Eosinophils % (Manual) 1 % (0-3) 1 % (0-3) Basophils % (Manual) 0 % (0-2) 0 % (0-2) Band Neutrophils 3 % (0-8) 3 % (0-8) Platelet Estimate Decreased L Adequate Platelet Morphology Normal Normal Red Blood Cell Morphology Normal Sodium Level 139 MMOL/L (136-145) Potassium Level 3.0 MMOL/L (3.5-5.1) L Chloride Level 103 MMOL/L (98-107) Carbon Dioxide Level 29 MMOL/L (21-32) Anion Gap 7 mmol/L (5-15) Blood Urea Nitrogen 26 mg/dL (7-18) H Creatinine 0.9 MG/DL (0.55-1.30) Estimat Glomerular Filtration Rate > 60 mL/min (>60) Glucose Level 103 MG/DL (74-106) Calcium Level 8.7 MG/DL (8.5-10.1) Total Bilirubin 0.6 MG/DL (0.2-1.0) Aspartate Amino Transf (AST/SGOT) 51 U/L (15-37) H Alanine Aminotransferase (ALT/SGPT) 61 U/L (12-78) Alkaline Phosphatase 106 U/L (46-116) Total Protein 7.4 G/DL (6.4-8.2) Albumin 2.5 G/DL (3.4-5.0) L Globulin 4.9 g/dL Albumin/Globulin Ratio 0.5 (1.0-2.7) L Stool Occult Blood Positive (NEGATIVE) Hypochromasia 1+ Current Medications Medications (Trade) Dose Ordered Sig/Evan Route PRN Reason Start Time Stop Time Status Last Admin Dose Admin Acetaminophen (Tylenol) 650 mg Q4H PRN ORAL Mild Pain (Pain Scale 1-3) 07/27/20 13:30 08/26/20 13:29 08/02/20 03:28 Aspirin (ASA) 81 mg DAILY ORAL 07/28/20 09:00 09/11/20 08:59 08/02/20 08:53 Atorvastatin Calcium (Lipitor) 80 mg BEDTIME ORAL 07/27/20 21:00 10/25/20 20:59 08/01/20 21:01 Ceftriaxone Sodium 1 gm/ Dextrose 55 ml @ 110 mls/hr Q24H IVPB 07/28/20 11:00 08/04/20 10:59 08/01/20 10:22 Chlordiazepoxide (Librium) 25 mg EVERY 8 HOURS ORAL 07/27/20 22:00 08/03/20 21:59 08/02/20 06:03 Clopidogrel Bisulfate (Plavix) 75 mg DAILY ORAL 07/28/20 09:00 08/27/20 08:59 08/02/20 08:52 Enoxaparin Sodium (Lovenox) 80 mg EVERY 12 HOURS SUBQ 07/27/20 21:00 10/25/20 20:59 07/27/20 21:24 Furosemide (Lasix) 40 mg DAILY IV 07/27/20 16:15 08/26/20 16:14 08/01/20 09:17 Hydralazine HCl (Apresoline) 20 mg Q6H PRN IV For High Blood Pressure 07/27/20 16:15 10/25/20 16:14 07/27/20 16:18 Losartan Potassium (Cozaar) 50 mg EVERY 12 HOURS ORAL 07/27/20 21:00 08/26/20 20:59 08/02/20 08:53 Metoprolol Tartrate (Lopressor) 50 mg EVERY 6 HOURS ORAL 08/01/20 00:00 10/25/20 16:14 08/01/20 18:37 Nitroglycerin (Ntg) 0.4 mg Q5M PRN SL Prn Chest Pain 07/27/20 16:15 08/26/20 16:14 07/27/20 16:24 Ondansetron HCl (Zofran) 4 mg Q4H PRN IVP Nausea & Vomiting 07/27/20 22:45 08/26/20 22:44 07/27/20 22:59 Thiamine HCl (Vitamin B1) 100 mg DAILY ORAL 07/28/20 09:00 08/27/20 08:59 08/02/20 08:53 Tuan Guajardo MD Aug 02, 2020 11:01
[2020-08-02 12:00] VITALS: BP 108/70
[2020-08-02] MEDS: Levofloxacin 500mg tab ORAL SCH (12:27)
[2020-08-02] MEDS ORDERED: Tubing IV Secondary IV ONE (13:02)
[2020-08-02] MEDS ORDERED: NS 275ml ONE (13:02)
--- NOTE | 2020-08-02 13:27 | Pulmonology Progress Note ---
Subjective ROS Limited/Unobtainable: No Interval Events: None new reported Constitutional: Reports: fever, other - Kqjc=560.8; Denies: chills HEENT: Repors: no symptoms Respiratory: Reports: shortness of breath Cardiovascular: Reports: no symptoms Gastrointestinal/Abdominal: Reports: nausea - yesterday; Denies: vomiting, diarrhea Genitourinary: Reports: no symptoms Musculoskeletal: Denies: pain Allergies: Coded Allergies: No Known Allergies (Unverified , 10/24/15) Objective Last 24 Hour Vital Signs Date Time Temp Pulse Resp B/P (MAP) Pulse Ox O2 Delivery O2 Flow Rate FiO2 08/02/20 12:00 98.1 100 20 108/70 (83) 93 08/02/20 12:00 100 108/70 08/02/20 12:00 78 08/02/20 09:00 Room Air 2.0 08/02/20 08:53 145/93 08/02/20 08:00 99.3 75 22 145/93 (110) 93 08/02/20 08:00 85 08/02/20 05:20 84 99/67 08/02/20 04:00 100.8 84 18 94/67 (76) 94 08/02/20 04:00 89 08/02/20 03:58 98.9 08/02/20 00:00 99.9 51 16 110/52 (71) 94 08/02/20 00:00 85 08/02/20 00:00 51 110/52 08/01/20 21:00 Room Air 2.0 08/01/20 20:54 92/49 08/01/20 20:31 99.9 08/01/20 20:00 113 08/01/20 20:00 97.9 69 18 127/61 (83) 98 08/01/20 18:37 98 122/71 08/01/20 16:01 97.7 61 20 110/56 (74) 98 08/01/20 16:00 81 Intake and Output 08/01/20 08/02/20 19:00 07:00 # Voids 4 2 # Bowel Movements 1 General Appearance: no acute distress HEENT: atraumatic Respiratory: crackles/rales Cardiovascular: normal rate, regular rhythm Abdomen: soft, non tender Laboratory Tests 08/01/20 16:25: White Blood Count 15.6H, Red Blood Count 4.93, Hemoglobin 14.9, Hematocrit 47.1, Mean Corpuscular Volume 96, Mean Corpuscular Hemoglobin 30.2, Mean Corpuscular Hemoglobin Concent 31.6L, Red Cell Distribution Width 13.7, Platelet Count 157, Mean Platelet Volume 10.5H, Neutrophils (%) (Auto) , Lymphocytes (%) (Auto) , Monocytes (%) (Auto) , Eosinophils (%) (Auto) , Basophils (%) (Auto) , Different ial Total Cells Counted 100, Neutrophils % (Manual) 68, Lymphocytes % (Manual) 10L, Monocytes % (Manual) 18H, Eosinophils % (Manual) 1, Basophils % (Manual) 0, Band Neutrophils 3, Platelet Estimate DecreasedL, Platelet Morphology Normal, Red Blood Cell Morphology Normal, Sodium Level 139, Potassium Level 3.0L, Chloride Level 103, Carbon Dioxide Level 29, Anion Gap 7, Blood Urea Nitrogen 26H, Creatinine 0.9, Estimat Glomerular Filtration Rate > 60, Glucose Level 103, Calcium Level 8.7, Total Bilirubin 0.6, Aspartate Amino Transf (AST/SGOT) 51H, Alanine Aminotransferase (ALT/SGPT) 61, Alkaline Phosphatase 106, Total Protein 7.4, Albumin 2.5L, Globulin 4.9, Albumin/Globulin Ratio 0.5L 08/01/20 17:00: Stool Occult Blood Positive 08/02/20 07:34: White Blood Count 13.3H, Red Blood Count 4.92, Hemoglobin 15.1, Hematocrit 46.7, Mean Corpuscular Volume 95, Mean Corpuscular Hemoglobin 30.7, Mean Corpuscular Hemoglobin Concent 32.4, Red Cell Distribution Width 13.5, Platelet Count 170, Mean Platelet Volume 10.1, Neutrophils (%) (Auto) , Lymphocytes (%) (Auto) , Monocytes (%) (Auto) , Eosinophils (%) (Auto) , Basophils (%) (Auto) , Differential Total Cells Counted 100, Neutrophils % (Manual) 71, Lymphocytes % (Manual) 11L, Monocytes % (Manual) 14H, Eosinophils % (Manual) 1, Basophils % (Manual) 0, Band Neutrophils 3, Platelet Estimate Adequate, Platelet Morphology Normal, Hypochromasia 1+ Current Medications Medications (Trade) Dose Ordered Sig/Evan Route PRN Reason Start Time Stop Time Status Last Admin Dose Admin Acetaminophen (Tylenol) 650 mg Q4H PRN ORAL Mild Pain (Pain Scale 1-3) 07/27/20 13:30 08/26/20 13:29 08/02/20 03:28 Acetaminophen (Tylenol) 650 mg Q6H PRN ORAL Temp >100.5 08/02/20 12:00 09/01/20 11:59 Aspirin (ASA) 81 mg DAILY ORAL 07/28/20 09:00 09/11/20 08:59 08/02/20 08:53 Atorvastatin Calcium (Lipitor) 80 mg BEDTIME ORAL 07/27/20 21:00 10/25/20 20:59 08/01/20 21:01 Chlordiazepoxide (Librium) 25 mg EVERY 8 HOURS ORAL 07/27/20 22:00 08/03/20 21:59 08/02/20 06:03 Clopidogrel Bisulfate (Plavix) 75 mg DAILY ORAL 07/28/20 09:00 08/27/20 08:59 08/02/20 08:52 Enoxaparin Sodium (Lovenox) 80 mg EVERY 12 HOURS SUBQ 07/27/20 21:00 10/25/20 20:59 07/27/20 21:24 Furosemide (Lasix) 40 mg DAILY IV 07/27/20 16:15 08/26/20 16:14 08/01/20 09:17 Hydralazine HCl (Apresoline) 20 mg Q6H PRN IV For High Blood Pressure 07/27/20 16:15 10/25/20 16:14 07/27/20 16:18 Levofloxacin (Levaquin) 500 mg DAILY ORAL 08/02/20 11:30 08/09/20 11:29 08/02/20 12:27 Losartan Potassium (Cozaar) 50 mg EVERY 12 HOURS ORAL 07/27/20 21:00 08/26/20 20:59 08/02/20 08:53 Metoprolol Tartrate (Lopressor) 50 mg EVERY 6 HOURS ORAL 08/01/20 00:00 10/25/20 16:14 08/01/20 18:37 Nitroglycerin (Ntg) 0.4 mg Q5M PRN SL Prn Chest Pain 07/27/20 16:15 08/26/20 16:14 2/16/21 16:24 Ondansetron HCl (Zofran) 4 mg Q4H PRN IVP Nausea & Vomiting 07/27/20 22:45 08/26/20 22:44 07/27/20 22:59 Thiamine HCl (Vitamin B1) 100 mg DAILY ORAL 07/28/20 09:00 08/27/20 08:59 08/02/20 08:53 Assessment/Plan Assessment/Plan 1. High D-dimer. - No evidence of pulmonary embolism on CTA chest -Lovenox held due to thrombocytopenia - f/u D-dimer ordered (08/03) 2. AICD. 3. CHF. 4. CAD. 5. Leukocytosis -WBC trending down -On antibiotics 6. Hypokalemia 7. Thrombocytopenia; improved - heme following Patient needs rate control with digoxin. Cardiology is following. Beta-anay has also been started. The patient has also received amiodarone. Continue medications. Diurese as needed. No indication for steroids. Continue supportive care and p.r.n. medications. The care of this patient was discussed with my supervising physician Time spent for this encounter was approximately 31 minutes James Fernandes Aug 02, 2020 13:27
[2020-08-02 16:00] VITALS: BP 115/74
--- NOTE | 2020-08-02 16:33 | General Progress Note ---
Subjective Allergies: Coded Allergies: No Known Allergies (Unverified , 10/24/15) Subjective fever last night more awake Objective Last 24 Hour Vital Signs Date Time Temp Pulse Resp B/P (MAP) Pulse Ox O2 Delivery O2 Flow Rate FiO2 08/02/20 12:00 98.1 100 20 108/70 (83) 93 08/02/20 12:00 100 108/70 08/02/20 12:00 78 08/02/20 09:00 Room Air 2.0 08/02/20 08:53 145/93 08/02/20 08:00 99.3 75 22 145/93 (110) 93 08/02/20 08:00 85 08/02/20 05:20 84 99/67 08/02/20 04:00 100.8 84 18 94/67 (76) 94 08/02/20 04:00 89 08/02/20 03:58 98.9 08/02/20 00:00 99.9 51 16 110/52 (71) 94 08/02/20 00:00 85 08/02/20 00:00 51 110/52 08/01/20 21:00 Room Air 2.0 08/01/20 20:54 92/49 08/01/20 20:31 99.9 08/01/20 20:00 113 08/01/20 20:00 97.9 69 18 127/61 (83) 98 08/01/20 18:37 98 122/71 Intake and Output 08/01/20 08/02/20 19:00 07:00 # Voids 4 2 # Bowel Movements 1 Laboratory Tests 08/01/20 17:00: Stool Occult Blood Positive 08/02/20 07:34: White Blood Count 13.3H, Red Blood Count 4.92, Hemoglobin 15.1, Hematocrit 46.7, Mean Corpuscular Volume 95, Mean Corpuscular Hemoglobin 30.7, Mean Corpuscular Hemoglobin Concent 32.4, Red Cell Distribution Width 13.5, Platelet Count 170, Mean Platelet Volume 10.1, Neutrophils (%) (Auto) , Lymphocytes (%) (Auto) , Monocytes (%) (Auto) , Eosinophils (%) (Auto) , Basophils (%) (Auto) , Differential Total Cells Counted 100, Neutrophils % (Manual) 71, Lymphocytes % (Manual) 11L, Monocytes % (Manual) 14H, Eosinophils % (Manual) 1, Basophils % (Manual) 0, Band Neutrophils 3, Platelet Estimate Adequate, Platelet Morphology Normal, Hypochromasia 1+ Height (Feet): 5 Height (Inches): 7.00 Weight (Pounds): 185 General Appearance: alert EENT: PERRL/EOMI Neck: supple Cardiovascular: regular rhythm Respiratory/Chest: crackles/rales Abdomen: non tender, soft Assessment/Plan Status: stable Assessment/Plan: sob afib pna chf etoh abused pna hypokalemia kcl replacement iv abx iv sterids librium cont o2 pumonary tx id consult pulmonary on consult transfer to med surg Kadeem Luis MD Aug 02, 2020 16:33
--- NOTE | 2020-08-02 18:56 | NUR ---
NURSE HAND-OFF REPORT: Important Events on Shift:[None] Patient Status: [Full code] Diet: [Low Sodium] Pending Orders: [] Pending Results/Labs:[] Pending MD notification:[] Latest Vital Signs: Temperature 98.1 , Pulse 96 , B/P 115 /74 , Respiratory Rate 20 , O2 SAT 92 , Nasal Cannula, O2 Flow Rate 2.0 . Vital Sign Comment: [] EKG Rhythm: Sinus Rhythm Rhythm change?: N MD Notified?: Evin Dexter MD Response: Latest Ryan Fall Score: 45 Fall Risk: High Risk Safety Measures: Call light Within Reach, Bed Alarm Zone 1, Side Rails Side Rails x3, Bed position Low and Locked. Fall Precautions: Yellow Socks Patient Fall Education Report given to [TITA Basurto].
[2020-08-02 20:00] VITALS: BP 115/63
[2020-08-02] MEDS: Atorvastatin 80mg tab ORAL SCH (21:01)
[2020-08-03] VITALS: BP 108/73
--- NOTE | 2020-08-03 01:29 | NUR ---
PATIENT IS SLEEPING ,VS STABLE .MONITOR AFIB/FLUTTER CONTROLLED.
[2020-08-03 04:00] VITALS: BP 122/81
--- NOTE | 2020-08-03 06:22 | NUR ---
NURSE HAND-OFF REPORT: Important Events on Shift:[] Patient Status: [] Diet: [] Pending Orders: [] Pending Results/Labs:[] Pending MD notification:[] Latest Vital Signs: Temperature 97.5 , Pulse 106 , B/P 122 /81 , Respiratory Rate 20 , O2 SAT 97 , Nasal Cannula, O2 Flow Rate 2.0 . Vital Sign Comment: [] EKG Rhythm: Sinus Tachycardia Rhythm change?: N MD Notified?: Evin Dexter MD Response: Latest Ryan Fall Score: 45 Fall Risk: High Risk Safety Measures: Call light Within Reach, Bed Alarm Zone 1, Side Rails Side Rails x3, Bed position Low and Locked. Fall Precautions: Yellow Socks Patient Fall Education Report given to [].
--- NOTE | 2020-08-03 06:31 | Hematology/Onc Progress Note ---
Assessment/Plan Assessment/Plan Status Narrative # Elevated ddimer - with a history of recent pna --> has been started on abx, ctx --> Cta is neg for pe --> consider repeat ddimer as needed --> on lovenox bid therapy (full dose anticoag) agree, also with card nstemi # Thrombocytopenia in the setting of alcohol abuse --> plt 50-->157 --> transfuse prn --> monitor for bleeding --> smear is noted # NSTEMI with troponin elevation --> ASA, Plavix, and Lovenox # Hypercoagulable disorder -- Afib with RVR --> Bb and digoxin for rate and rhythm control --> per cards # Multifocal PNA and respiratory failure - improved, was on NRB now NC --> neg testing for covid --> iso as needed --> abx # CHF acute on chronic systolic on diastolic HF, reduced EF 40%, s/p AICD # HTN and hypertensive urgency # Hx of substance abuse # Psychiatric disorder and homelessness # N/V # Cellulitis of lower extremity # Dvt ppx lovenox sq Appreciate consultation and mariela Rn Subjective HEENT: Denies: no symptoms, eye pain, blurred vision, tearing, double vision, ear pain, ear discharge, nose pain, nose congestion, throat pain, throat swelling, mouth pain, mouth swelling, other Cardiovascular: Denies: no symptoms, chest pain, edema, irregular heart rate, lightheadedness, palpitations, syncope, other Respiratory: Denies: no symptoms, cough, shortness of breath, SOB with excertion, SOB at rest, sputum, wheezing, other Gastrointestinal/Abdominal: Denies: no symptoms, abdomen distended, abdominal pain, black stools, tarry stools, blood in stool, constipated, diarrhea, difficulty swallowing, nausea, poor appetite, poor fluid intake, rectal bleeding, vomiting, other Neurologic/Psychiatric: Denies: no symptoms, anxiety, depressed, emotional problems, headache, numbness, paresthesia, pre-existing deficit, seizure, tingling, tremors, weakness, other Endocrine: Denies: no symptoms, excessive sweating, flushing, intolerance to cold, intolerance to heat, increased hunger, increased thirst, increased urine, unexplained weight gain, unexplained weight loss, other Hematologic/Lymphatic: Denies: no symptoms, anemia, easy bleeding, easy bruising, adenopathy, other Allergies: Coded Allergies: No Known Allergies (Unverified , 10/24/15) Subjective 08/02 meds reviewed, plts have markedly improved from 55 to above 150 08/03 labs reviewed, meds noted, no bleeding, dw rn, no hemolysis Objective Objective Current Medications Medications (Trade) Dose Ordered Sig/Evan Route PRN Reason Start Time Stop Time Status Last Admin Dose Admin Acetaminophen (Tylenol) 650 mg Q4H PRN ORAL Mild Pain (Pain Scale 1-3) 07/27/20 13:30 08/26/20 13:29 08/02/20 03:28 Acetaminophen (Tylenol) 650 mg Q6H PRN ORAL Temp >100.5 08/02/20 12:00 09/01/20 11:59 Aspirin (ASA) 81 mg DAILY ORAL 07/28/20 09:00 09/11/20 08:59 08/02/20 08:53 Atorvastatin Calcium (Lipitor) 80 mg BEDTIME ORAL 07/27/20 21:00 10/25/20 20:59 08/02/20 21:01 Clopidogrel Bisulfate (Plavix) 75 mg DAILY ORAL 07/28/20 09:00 08/27/20 08:59 08/02/20 08:52 Enoxaparin Sodium (Lovenox) 80 mg EVERY 12 HOURS SUBQ 07/27/20 21:00 10/25/20 20:59 08/02/20 21:04 Furosemide (Lasix) 40 mg DAILY IV 07/27/20 16:15 08/26/20 16:14 08/01/20 09:17 Hydralazine HCl (Apresoline) 20 mg Q6H PRN IV For High Blood Pressure 07/27/20 16:15 10/25/20 16:14 07/27/20 16:18 Levofloxacin (Levaquin) 500 mg DAILY ORAL 08/02/20 11:30 08/09/20 11:29 08/02/20 12:27 Losartan Potassium (Cozaar) 50 mg EVERY 12 HOURS ORAL 07/27/20 21:00 08/26/20 20:59 08/02/20 21:01 Metoprolol Tartrate (Lopressor) 50 mg EVERY 6 HOURS ORAL 08/01/20 00:00 10/25/20 16:14 08/03/20 05:23 Nitroglycerin (Ntg) 0.4 mg Q5M PRN SL Prn Chest Pain 07/27/20 16:15 08/26/20 16:14 07/27/20 16:24 Ondansetron HCl (Zofran) 4 mg Q4H PRN IVP Nausea & Vomiting 07/27/20 22:45 08/26/20 22:44 07/27/20 22:59 Thiamine HCl (Vitamin B1) 100 mg DAILY ORAL 07/28/20 09:00 08/27/20 08:59 08/02/20 08:53 Last 24 Hour Vital Signs Date Time Temp Pulse Resp B/P (MAP) Pulse Ox O2 Delivery O2 Flow Rate FiO2 08/03/20 05:23 106 122/81 08/03/20 04:00 106 08/03/20 04:00 97.5 69 20 122/81 (95) 97 08/03/20 00:00 98.8 64 20 108/73 (85) 97 08/03/20 00:00 93 108/73 08/03/20 00:00 93 08/02/20 21:01 115/74 08/02/20 21:00 Room Air 2.0 08/02/20 20:00 93 08/02/20 20:00 97.8 60 20 115/63 (80) 97 08/02/20 17:51 96 115/74 08/02/20 16:00 96 08/02/20 16:00 98.1 111 20 115/74 (88) 92 08/02/20 12:00 98.1 100 20 108/70 (83) 93 08/02/20 12:00 100 108/70 08/02/20 12:00 78 08/02/20 09:00 Room Air 2.0 08/02/20 08:53 145/93 08/02/20 08:00 99.3 75 22 145/93 (110) 93 08/02/20 08:00 85 08/02/20 05:20 84 99/67 08/02/20 04:00 100.8 84 18 94/67 (76) 94 08/02/20 04:00 89 08/02/20 03:58 98.9 08/02/20 00:00 99.9 51 16 110/52 (71) 94 08/02/20 00:00 85 08/02/20 00:00 51 110/52 08/01/20 21:00 Room Air 2.0 08/01/20 20:54 92/49 08/01/20 20:31 99.9 08/01/20 20:00 113 08/01/20 20:00 97.9 69 18 127/61 (83) 98 08/01/20 18:37 98 122/71 08/01/20 16:01 97.7 61 20 110/56 (74) 98 08/01/20 16:00 81 08/01/20 12:44 87 119/69 08/01/20 12:00 97.6 64 20 127/64 (85) 100 08/01/20 12:00 102 08/01/20 09:24 125/58 08/01/20 09:00 Room Air 2.0 08/01/20 08:00 77 08/01/20 08:00 97.6 62 20 136/65 (88) 98 Intake and Output 08/02/20 08/03/20 19:00 07:00 Intake Total 350 ml Output Total 650 ml Balance 350 ml -650 ml Intake Oral 350 ml Other 650 ml # Voids 2 Labs Test 07/31/20 19:23 08/01/20 16:25 08/01/20 17:00 08/02/20 07:34 Digoxin Level < 0.3 NG/ML (0.5-2.0) White Blood Count 15.6 K/UL (4.8-10.8) 13.3 K/UL (4.8-10.8) Red Blood Count 4.93 M/UL (4.70-6.10) 4.92 M/UL (4.70-6.10) Hemoglobin 14.9 G/DL (14.2-18.0) 15.1 G/DL (14.2-18.0) Hematocrit 47.1 % (42.0-52.0) 46.7 % (42.0-52.0) Mean Corpuscular Volume 96 FL (80-99) 95 FL (80-99) Mean Corpuscular Hemoglobin 30.2 PG (27.0-31.0) 30.7 PG (27.0-31.0) Mean Corpuscular Hemoglobin Concent 31.6 G/DL (32.0-36.0) 32.4 G/DL (32.0-36.0) Red Cell Distribution Width 13.7 % (11.6-14.8) 13.5 % (11.6-14.8) Platelet Count 157 K/UL (150-450) 170 K/UL (150-450) Mean Platelet Volume 10.5 FL (6.5-10.1) 10.1 FL (6.5-10.1) Neutrophils (%) (Auto) % (45.0-75.0) % (45.0-75.0) Lymphocytes (%) (Auto) % (20.0-45.0) % (20.0-45.0) Monocytes (%) (Auto) % (1.0-10.0) % (1.0-10.0) Eosinophils (%) (Auto) % (0.0-3.0) % (0.0-3.0) Basophils (%) (Auto) % (0.0-2.0) % (0.0-2.0) Differential Total Cells Counted 100 100 Neutrophils % (Manual) 68 % (45-75) 71 % (45-75) Lymphocytes % (Manual) 10 % (20-45) 11 % (20-45) Monocytes % (Manual) 18 % (1-10) 14 % (1-10) Eosinophils % (Manual) 1 % (0-3) 1 % (0-3) Basophils % (Manual) 0 % (0-2) 0 % (0-2) Band Neutrophils 3 % (0-8) 3 % (0-8) Platelet Estimate Decreased Adequate Platelet Morphology Normal Normal Red Blood Cell Morphology Normal Sodium Level 139 MMOL/L (136-145) Potassium Level 3.0 MMOL/L (3.5-5.1) Chloride Level 103 MMOL/L (98-107) Carbon Dioxide Level 29 MMOL/L (21-32) Anion Gap 7 mmol/L (5-15) Blood Urea Nitrogen 26 mg/dL (7-18) Creatinine 0.9 MG/DL (0.55-1.30) Estimat Glomerular Filtration Rate > 60 mL/min (>60) Glucose Level 103 MG/DL (74-106) Calcium Level 8.7 MG/DL (8.5-10.1) Total Bilirubin 0.6 MG/DL (0.2-1.0) Aspartate Amino Transf (AST/SGOT) 51 U/L (15-37) Alanine Aminotransferase (ALT/SGPT) 61 U/L (12-78) Alkaline Phosphatase 106 U/L (46-116) Total Protein 7.4 G/DL (6.4-8.2) Albumin 2.5 G/DL (3.4-5.0) Globulin 4.9 g/dL Albumin/Globulin Ratio 0.5 (1.0-2.7) Stool Occult Blood Positive (NEGATIVE) Hypochromasia 1+ Height (Feet): 5 Height (Inches): 7.00 Weight (Pounds): 185 Objective Gen: Nad Pulm: Ctab, no cwr CV: Rrr, no mgr Abd: soft, nd, nt Ext: no cce Heath Matos MD Aug 03, 2020 06:31
--- NOTE | 2020-08-03 07:32 | NUR ---
NURSE NOTES: Received patient report from TITA Basurto. Patient is awake and eating breakfast and shows no signs of distress or pain. Patient is on 2L nasal canula and shows no signs of respiratory distress. IV is intact and patent. There are no signs of erythema, infiltration, or bleeding. Bed is in the lowest position, call light is within reach, side rails up x3. Will continue plan of care.
[2020-08-03 07:48] LABS: BASOPHILS % (AUTO) 1.4 % (0.0-2.0); EOSINOPHILS % (AUTO) 2.2 % (0.0-3.0); HEMATOCRIT 37.5 % (42.0-52.0); HEMOGLOBIN 12.5 G/DL (14.2-18.0); LYMPHOCYTES % (AUTO) 15.9 % (20.0-45.0); MEAN CORPUSCULAR VOLUME 95 FL (80-99); MONOCYTES % (AUTO) 18.1 % (1.0-10.0); NEUTROPHILS % (AUTO) 62.5 % (45.0-75.0); PLATELET COUNT 188 K/UL (150-450); RED BLOOD COUNT 3.93 M/UL (4.70-6.10); RED CELL DISTRIBUTION WIDTH 13.8 % (11.6-14.8); WHITE BLOOD COUNT 12.2 K/UL (4.8-10.8)
[2020-08-03 08:00] VITALS: BP 97/56
[2020-08-03] MEDS: Aspirin Baby 81mg ORAL SCH (08:41)
[2020-08-03] MEDS: Levofloxacin 500mg tab ORAL SCH (08:41)
[2020-08-03] MEDS: Thiamine 100mg tab ORAL SCH (08:41)
[2020-08-03] MEDS: Enoxaparin 80mg Inj SUBQ SCH (08:42)
[2020-08-03] MEDS: Losartan 50mg tab ORAL SCH ×2 (08:42→21:00)
--- NOTE | 2020-08-03 11:04 | NUR ---
RD ASSESSMENT & RECOMMENDATIONS SEE CARE ACTIVITY FOR COMPLETE ASSESSMENT DAILY ESTIMATED NEEDS: Needs based on cardiac/ 71.5kg abw 25-30 kcals/kg 1012-6129 total kcals 1-1.3 g protein/kg 72-93 g total protein 20-25 mL/kg 6081-1834 total fluid mLs NUTRITION DIAGNOSIS: Altered nutrition related lab values R/T CHF as evidenced by elev BNP (4327), pt on Lasix. CURRENT DIET:LOW NA PO DIET RECOMMENDATIONS: LOW NA ADDITIONAL RECOMMENDATIONS: * Daily standing wt * Monitor BGs, need for carb controlled diet * Check A1C: h/o DM * Monitor lytse w/ Lasix, replete as needed (low K)
--- NOTE | 2020-08-03 11:16 | Pulmonology Progress Note ---
Subjective ROS Limited/Unobtainable: No Interval Events: None new reported Constitutional: Reports: fever, other - resolved; Denies: chills HEENT: Repors: no symptoms Respiratory: Reports: shortness of breath Cardiovascular: Reports: no symptoms Gastrointestinal/Abdominal: Reports: nausea - yesterday; Denies: vomiting, diarrhea Genitourinary: Reports: no symptoms Musculoskeletal: Denies: pain Allergies: Coded Allergies: No Known Allergies (Unverified , 10/24/15) Objective Last 24 Hour Vital Signs Date Time Temp Pulse Resp B/P (MAP) Pulse Ox O2 Delivery O2 Flow Rate FiO2 08/03/20 09:00 Room Air 2.0 08/03/20 08:42 97/56 08/03/20 08:00 98 08/03/20 08:00 98.1 90 20 97/56 (70) 93 08/03/20 05:23 106 122/81 08/03/20 04:00 106 08/03/20 04:00 97.5 69 20 122/81 (95) 97 08/03/20 00:00 98.8 64 20 108/73 (85) 97 08/03/20 00:00 93 108/73 08/03/20 00:00 93 08/02/20 21:01 115/74 08/02/20 21:00 Room Air 2.0 08/02/20 20:00 93 08/02/20 20:00 97.8 60 20 115/63 (80) 97 08/02/20 17:51 96 115/74 08/02/20 16:00 96 08/02/20 16:00 98.1 111 20 115/74 (88) 92 08/02/20 12:00 98.1 100 20 108/70 (83) 93 08/02/20 12:00 100 108/70 08/02/20 12:00 78 Intake and Output 08/02/20 08/03/20 19:00 07:00 Intake Total 350 ml Output Total 650 ml Balance 350 ml -650 ml Intake Oral 350 ml Other 650 ml # Voids 2 General Appearance: no acute distress HEENT: atraumatic Respiratory: crackles/rales Cardiovascular: normal rate, regular rhythm Abdomen: soft, non tender Laboratory Tests 08/03/20 07:00: White Blood Count 12.2H, Red Blood Count 3.93L, Hemoglobin 12.5L, Hematocrit 37.5L, Mean Corpuscular Volume 95, Mean Corpuscular Hemoglobin 31.7H, Mean Corpuscular Hemoglobin Concent 33.3, Red Cell Distribution Width 13.8, Platelet Count 188, Mean Platelet Volume 9.1, Neutrophils (%) (Auto) 62.5, Lymphocytes (%) (Auto) 15.9L, Monocytes (%) (Auto) 18.1H, Eosinophils (%) (Auto) 2.2, Basophils (%) (Auto) 1.4 08/03/20 07:57: D-Dimer 2.39H Current Medications Medications (Trade) Dose Ordered Sig/Evan Route PRN Reason Start Time Stop Time Status Last Admin Dose Admin Acetaminophen (Tylenol) 650 mg Q4H PRN ORAL Mild Pain (Pain Scale 1-3) 07/27/20 13:30 08/26/20 13:29 08/02/20 03:28 Acetaminophen (Tylenol) 650 mg Q6H PRN ORAL Temp >100.5 08/02/20 12:00 09/01/20 11:59 Aspirin (ASA) 81 mg DAILY ORAL 07/28/20 09:00 09/11/20 08:59 08/03/20 08:41 Atorvastatin Calcium (Lipitor) 80 mg BEDTIME ORAL 07/27/20 21:00 10/25/20 20:59 08/02/20 21:01 Clopidogrel Bisulfate (Plavix) 75 mg DAILY ORAL 07/28/20 09:00 08/27/20 08:59 08/03/20 08:41 Enoxaparin Sodium (Lovenox) 80 mg EVERY 12 HOURS SUBQ 07/27/20 21:00 10/25/20 20:59 08/02/20 21:04 Furosemide (Lasix) 40 mg DAILY IV 07/27/20 16:15 08/26/20 16:14 08/01/20 09:17 Hydralazine HCl (Apresoline) 20 mg Q6H PRN IV For High Blood Pressure 07/27/20 16:15 10/25/20 16:14 07/27/20 16:18 Levofloxacin (Levaquin) 500 mg DAILY ORAL 08/02/20 11:30 08/09/20 11:29 08/03/20 08:41 Losartan Potassium (Cozaar) 50 mg EVERY 12 HOURS ORAL 07/27/20 21:00 08/26/20 20:59 08/02/20 21:01 Metoprolol Tartrate (Lopressor) 50 mg EVERY 6 HOURS ORAL 08/01/20 00:00 10/25/20 16:14 08/03/20 05:23 Nitroglycerin (Ntg) 0.4 mg Q5M PRN SL Prn Chest Pain 07/27/20 16:15 08/26/20 16:14 07/27/20 16:24 Ondansetron HCl (Zofran) 4 mg Q4H PRN IVP Nausea & Vomiting 07/27/20 22:45 08/26/20 22:44 07/27/20 22:59 Thiamine HCl (Vitamin B1) 100 mg DAILY ORAL 07/28/20 09:00 08/27/20 08:59 08/03/20 08:41 Assessment/Plan Assessment/Plan 1. High D-dimer. - No evidence of pulmonary embolism on CTA chest -Lovenox 80 mg BID held due to thrombocytopenia -> now plt count normal and D-dimer lower -> will start Lovenox 40 mg QD - f/u D-dimer (08/03) trending down 2. AICD. 3. CHF. 4. CAD. 5. Leukocytosis -WBC trending down -On antibiotics 6. Hypokalemia 7. Thrombocytopenia; improved - heme following Patient needs rate control with digoxin. Cardiology is following. Beta-anay has also been started. The patient has also received amiodarone. Continue medications. Diurese as needed. No indication for steroids. Continue supportive care and p.r.n. medications. The care of this patient was discussed with my supervising physician Time spent for this encounter was approximately 31 minutes James Fernandes Aug 03, 2020 11:16
--- NOTE | 2020-08-03 11:27 | General Progress Note ---
Subjective Allergies: Coded Allergies: No Known Allergies (Unverified , 10/24/15) Subjective fever last night more awake Objective Last 24 Hour Vital Signs Date Time Temp Pulse Resp B/P (MAP) Pulse Ox O2 Delivery O2 Flow Rate FiO2 08/03/20 09:00 Room Air 2.0 08/03/20 08:42 97/56 08/03/20 08:00 98 08/03/20 08:00 98.1 90 20 97/56 (70) 93 08/03/20 05:23 106 122/81 08/03/20 04:00 106 08/03/20 04:00 97.5 69 20 122/81 (95) 97 08/03/20 00:00 98.8 64 20 108/73 (85) 97 08/03/20 00:00 93 108/73 08/03/20 00:00 93 08/02/20 21:01 115/74 08/02/20 21:00 Room Air 2.0 08/02/20 20:00 93 08/02/20 20:00 97.8 60 20 115/63 (80) 97 08/02/20 17:51 96 115/74 08/02/20 16:00 96 08/02/20 16:00 98.1 111 20 115/74 (88) 92 08/02/20 12:00 98.1 100 20 108/70 (83) 93 08/02/20 12:00 100 108/70 08/02/20 12:00 78 Intake and Output 08/02/20 08/03/20 19:00 07:00 Intake Total 350 ml Output Total 650 ml Balance 350 ml -650 ml Intake Oral 350 ml Other 650 ml # Voids 2 Laboratory Tests 08/03/20 07:00: White Blood Count 12.2H, Red Blood Count 3.93L, Hemoglobin 12.5L, Hematocrit 37.5L, Mean Corpuscular Volume 95, Mean Corpuscular Hemoglobin 31.7H, Mean Corpuscular Hemoglobin Concent 33.3, Red Cell Distribution Width 13.8, Platelet Count 188, Mean Platelet Volume 9.1, Neutrophils (%) (Auto) 62.5, Lymphocytes (%) (Auto) 15.9L, Monocytes (%) (Auto) 18.1H, Eosinophils (%) (Auto) 2.2, Basophils (%) (Auto) 1.4 08/03/20 07:57: D-Dimer 2.39H Height (Feet): 5 Height (Inches): 7.00 Weight (Pounds): 185 General Appearance: alert EENT: PERRL/EOMI Neck: supple Cardiovascular: regular rhythm Abdomen: non tender, soft Extremities: non-tender Assessment/Plan Status: stable Assessment/Plan: sob afib pna chf etoh abused pna hypokalemia kcl replacement iv abx iv sterids librium cont o2 pumonary tx id consult pulmonary on consult transfer to med surg Kadeem Luis MD Aug 03, 2020 11:27
--- NOTE | 2020-08-03 11:46 | Infectious Diseases Prog Note ---
Assessment/Plan Assessment/Plan antibiotics : levoquin A 1. pneumonia covid 19 test negative 2. hypertension 3. CHF 4. fever P 1. continue po levoquin 3 more days 2. will follow up cultures Subjective ROS Limited/Unobtainable: Yes Allergies: Coded Allergies: No Known Allergies (Unverified , 10/24/15) Objective Last 24 Hour Vital Signs Date Time Temp Pulse Resp B/P (MAP) Pulse Ox O2 Delivery O2 Flow Rate FiO2 08/03/20 09:00 Room Air 2.0 08/03/20 08:42 97/56 08/03/20 08:00 98 08/03/20 08:00 98.1 90 20 97/56 (70) 93 08/03/20 05:23 106 122/81 08/03/20 04:00 106 08/03/20 04:00 97.5 69 20 122/81 (95) 97 08/03/20 00:00 98.8 64 20 108/73 (85) 97 08/03/20 00:00 93 108/73 08/03/20 00:00 93 08/02/20 21:01 115/74 08/02/20 21:00 Room Air 2.0 08/02/20 20:00 93 08/02/20 20:00 97.8 60 20 115/63 (80) 97 08/02/20 17:51 96 115/74 08/02/20 16:00 96 08/02/20 16:00 98.1 111 20 115/74 (88) 92 08/02/20 12:00 98.1 100 20 108/70 (83) 93 08/02/20 12:00 100 108/70 08/02/20 12:00 78 Height (Feet): 5 Height (Inches): 7.00 Weight (Pounds): 185 Respiratory/Chest: lungs clear Cardiovascular: normal rate, regular rhythm, no gallop/murmur Abdomen: soft, non tender Extremities: no edema Laboratory Tests Test 08/03/20 07:00 08/03/20 07:57 White Blood Count 12.2 K/UL (4.8-10.8) H Red Blood Count 3.93 M/UL (4.70-6.10) L Hemoglobin 12.5 G/DL (14.2-18.0) L Hematocrit 37.5 % (42.0-52.0) L Mean Corpuscular Volume 95 FL (80-99) Mean Corpuscular Hemoglobin 31.7 PG (27.0-31.0) H Mean Corpuscular Hemoglobin Concent 33.3 G/DL (32.0-36.0) Red Cell Distribution Width 13.8 % (11.6-14.8) Platelet Count 188 K/UL (150-450) Mean Platelet Volume 9.1 FL (6.5-10.1) Neutrophils (%) (Auto) 62.5 % (45.0-75.0) Lymphocytes (%) (Auto) 15.9 % (20.0-45.0) L Monocytes (%) (Auto) 18.1 % (1.0-10.0) H Eosinophils (%) (Auto) 2.2 % (0.0-3.0) Basophils (%) (Auto) 1.4 % (0.0-2.0) D-Dimer 2.39 mg/L FEU (0.00-0.49) H Current Medications Medications (Trade) Dose Ordered Sig/Evan Route PRN Reason Start Time Stop Time Status Last Admin Dose Admin Acetaminophen (Tylenol) 650 mg Q4H PRN ORAL Mild Pain (Pain Scale 1-3) 07/27/20 13:30 08/26/20 13:29 08/02/20 03:28 Acetaminophen (Tylenol) 650 mg Q6H PRN ORAL Temp >100.5 08/02/20 12:00 09/01/20 11:59 Aspirin (ASA) 81 mg DAILY ORAL 07/28/20 09:00 09/11/20 08:59 08/03/20 08:41 Atorvastatin Calcium (Lipitor) 80 mg BEDTIME ORAL 07/27/20 21:00 10/25/20 20:59 08/02/20 21:01 Clopidogrel Bisulfate (Plavix) 75 mg DAILY ORAL 07/28/20 09:00 08/27/20 08:59 08/03/20 08:41 Enoxaparin Sodium (Lovenox) 40 mg DAILY SUBQ 08/04/20 09:00 11/02/20 08:59 Furosemide (Lasix) 40 mg DAILY IV 07/27/20 16:15 08/26/20 16:14 08/01/20 09:17 Hydralazine HCl (Apresoline) 20 mg Q6H PRN IV For High Blood Pressure 07/27/20 16:15 10/25/20 16:14 07/27/20 16:18 Levofloxacin (Levaquin) 500 mg DAILY ORAL 08/02/20 11:30 08/09/20 11:29 08/03/20 08:41 Losartan Potassium (Cozaar) 50 mg EVERY 12 HOURS ORAL 07/27/20 21:00 08/26/20 20:59 08/02/20 21:01 Metoprolol Tartrate (Lopressor) 50 mg EVERY 6 HOURS ORAL 08/01/20 00:00 10/25/20 16:14 08/03/20 05:23 Nitroglycerin (Ntg) 0.4 mg Q5M PRN SL Prn Chest Pain 07/27/20 16:15 08/26/20 16:14 07/27/20 16:24 Ondansetron HCl (Zofran) 4 mg Q4H PRN IVP Nausea & Vomiting 07/27/20 22:45 08/26/20 22:44 07/27/20 22:59 Thiamine HCl (Vitamin B1) 100 mg DAILY ORAL 07/28/20 09:00 08/27/20 08:59 08/03/20 08:41 Tuan Guajardo MD Aug 03, 2020 11:46
[2020-08-03 12:00] VITALS: BP 90/58
[2020-08-03 16:00] VITALS: BP 110/55
--- NOTE | 2020-08-03 19:01 | Surgery Progress Note ---
Surgery Progress Note Subjective Symptoms: improved, tolerating diet, passing flatus, pain decreased Objective Last 24 Hour Vital Signs Date Time Temp Pulse Resp B/P (MAP) Pulse Ox O2 Delivery O2 Flow Rate FiO2 08/03/20 17:21 133 110/55 08/03/20 16:04 99.1 08/03/20 16:00 98.9 60 18 110/55 (73) 98 08/03/20 16:00 133 08/03/20 12:00 66 90/58 08/03/20 12:00 99.1 66 20 90/58 (69) 97 08/03/20 12:00 114 08/03/20 09:00 Room Air 2.0 08/03/20 08:42 97/56 08/03/20 08:00 98 08/03/20 08:00 98.1 90 20 97/56 (70) 93 08/03/20 05:23 106 122/81 08/03/20 04:00 106 08/03/20 04:00 97.5 69 20 122/81 (95) 97 08/03/20 00:00 98.8 64 20 108/73 (85) 97 08/03/20 00:00 93 108/73 08/03/20 00:00 93 08/02/20 21:01 115/74 08/02/20 21:00 Room Air 2.0 08/02/20 20:00 93 08/02/20 20:00 97.8 60 20 115/63 (80) 97 I&O Intake and Output 08/02/20 08/03/20 19:00 07:00 Intake Total 350 ml Output Total 650 ml Balance 350 ml -650 ml Intake Oral 350 ml Other 650 ml # Voids 2 Dressing: saturated Cardiovascular: RSR Respiratory: decreased breath sounds Abdomen: soft, flat, non-tender, present bowel sounds, non-distended Extremities: edema, no tenderness, no cyanosis Laboratory Tests Test 08/03/20 07:00 08/03/20 07:57 White Blood Count 12.2 K/UL (4.8-10.8) H Red Blood Count 3.93 M/UL (4.70-6.10) L Hemoglobin 12.5 G/DL (14.2-18.0) L Hematocrit 37.5 % (42.0-52.0) L Mean Corpuscular Volume 95 FL (80-99) Mean Corpuscular Hemoglobin 31.7 PG (27.0-31.0) H Mean Corpuscular Hemoglobin Concent 33.3 G/DL (32.0-36.0) Red Cell Distribution Width 13.8 % (11.6-14.8) Platelet Count 188 K/UL (150-450) Mean Platelet Volume 9.1 FL (6.5-10.1) Neutrophils (%) (Auto) 62.5 % (45.0-75.0) Lymphocytes (%) (Auto) 15.9 % (20.0-45.0) L Monocytes (%) (Auto) 18.1 % (1.0-10.0) H Eosinophils (%) (Auto) 2.2 % (0.0-3.0) Basophils (%) (Auto) 1.4 % (0.0-2.0) D-Dimer 2.39 mg/L FEU (0.00-0.49) H Plan Problems: (1) Cellulitis of lower extremity Assessment & Plan: Pt presented on admission with wound of unknown etiology R 1st metatarsal. Pt's hygiene is grossly neglected. To properly assess wound,pt's feet required extensive scrubbing to remove caked on dirt both feet. erythema and edema noted mild cellulitis Base of wound dorso/lateral R 1st metatarsalis darío with loose edges(L)2.3cm x (W)4cm. No exudate noted. NO erythema,swelling or changes in skin temp periwound. Second laceration noted to plantar-base of R 1st metatarsal(L)0.3cm x (W)1.2cm. Base of wound is darío. Edges are adherent to base of wound. No erythema s welling or changes in skin temp periwound. L foot 3rd and 4th metatarsals noted to have small ulcers that are dry . No surrounding erythema noted. Tx.Plan: Apply Betadine to dorsal and plantar wounds R 1st metatarsal. Cover with Gauze and wrap with Kerlix. Change every 3 days and prn. Swab ulcers dorsal L 3rd and 4th Metatarsals with Betadine Daily. Leave open to Air. turn q2h off load pressure nutritional optimization (2) Hypokalemia (3) Leukocytosis, unspecified (4) NSTEMI (non-ST elevated myocardial infarction) (5) Atrial fibrillation with RVR (6) Alcohol intoxication Dino Angelo Aug 03, 2020 19:01
--- NOTE | 2020-08-03 19:40 | NUR ---
NURSE HAND-OFF REPORT: Important Events on Shift:[Low BP and high HR ] Patient Status: [Full code] Diet: []Low Na Pending Orders: [] Pending Results/Labs:[] Pending MD notification:[] Latest Vital Signs: Temperature 99.1 , Pulse 133 , B/P 110 /55 , Respiratory Rate 18 , O2 SAT 98 , Nasal Cannula, O2 Flow Rate 2.0 . Vital Sign Comment: [] EKG Rhythm: Sinus Tachycardia Rhythm change?: N MD Notified?: Evin Dexter MD Response: Latest Ryan Fall Score: 45 Fall Risk: High Risk Safety Measures: Call light Within Reach, Bed Alarm Zone 1, Side Rails Side Rails x3, Bed position Low and Locked. Fall Precautions: Yellow Socks Patient Fall Education Report given to [TITA Estrada].
--- NOTE | 2020-08-03 19:45 | NUR ---
NURSE NOTES: Got report from Minda RIVERS. Patient is awake A+Ox3-4 shows no signs of distress or pain. Denies any pain. Denies any n/v or SOB. Patient is on 2L nasal canula and shows no signs of respiratory distress. Pt has R hand 20g and L FA 24g both IVs intact and patent slocked. Pt running Sinus Tachycardia on the monitor 110. Pt resting in bed comfortably. Bed is in the lowest position, call light is within reach, side rails up x3. Continue to monitor.
[2020-08-03 20:00] VITALS: BP 130/98
[2020-08-03] MEDS: Atorvastatin 80mg tab ORAL SCH (21:00)
--- NOTE | 2020-08-03 21:00 | Cardiology Progress Note ---
Assessment/Plan Status: stable Status Narrative 1. NSTEMI with troponin elevation antiplatelets and AC per hematology due to thrombocytopenia 2. Afib with RVR Bb and digoxin for rate and rhythm control 3. Multifocal PNA and respiratory failure - improved, was on NRB now NC Leukocytosis h/o recent COVID-19, repeat swab pending 4. CHF acute on chronic systolic on diastolic HF, reduced EF 40%, s/p AICD IV Lasix for diuresis BNP severely elevated 5. HTN and hypertensive urgency improved on multiple antihypertensives 6. Hx of substance abuse 7. Psychiatric disorder and homelessness 8. N/V 9. Thrombocytopenia 10. NSVT AC and antiplatelets per hematology, breathing easily when lying flat, continue medical therapy. Subjective ROS Limited/Unobtainable: No Subjective resting, lying flat, denies chest pain Objective Last 24 Hour Vital Signs Date Time Temp Pulse Resp B/P (MAP) Pulse Ox O2 Delivery O2 Flow Rate FiO2 08/03/20 17:21 133 110/55 08/03/20 16:04 99.1 08/03/20 16:00 98.9 60 18 110/55 (73) 98 08/03/20 16:00 133 08/03/20 12:00 66 90/58 08/03/20 12:00 99.1 66 20 90/58 (69) 97 08/03/20 12:00 114 08/03/20 09:00 Room Air 2.0 08/03/20 08:42 97/56 08/03/20 08:00 98 08/03/20 08:00 98.1 90 20 97/56 (70) 93 08/03/20 05:23 106 122/81 08/03/20 04:00 106 08/03/20 04:00 97.5 69 20 122/81 (95) 97 08/03/20 00:00 98.8 64 20 108/73 (85) 97 08/03/20 00:00 93 108/73 08/03/20 00:00 93 08/02/20 21:01 115/74 08/02/20 21:00 Room Air 2.0 General Appearance: no apparent distress EENT: PERRL/EOMI Neck: no JVD Cardiovascular: normal rate Respiratory/Chest: crackles/rales Extremities: trace edema Intake and Output 08/02/20 08/03/20 19:00 07:00 Intake Total 350 ml Output Total 650 ml Balance 350 ml -650 ml Intake Oral 350 ml Other 650 ml # Voids 2 Laboratory Tests Test 08/03/20 07:00 08/03/20 07:57 White Blood Count 12.2 K/UL (4.8-10.8) H Red Blood Count 3.93 M/UL (4.70-6.10) L Hemoglobin 12.5 G/DL (14.2-18.0) L Hematocrit 37.5 % (42.0-52.0) L Mean Corpuscular Volume 95 FL (80-99) Mean Corpuscular Hemoglobin 31.7 PG (27.0-31.0) H Mean Corpuscular Hemoglobin Concent 33.3 G/DL (32.0-36.0) Red Cell Distribution Width 13.8 % (11.6-14.8) Platelet Count 188 K/UL (150-450) Mean Platelet Volume 9.1 FL (6.5-10.1) Neutrophils (%) (Auto) 62.5 % (45.0-75.0) Lymphocytes (%) (Auto) 15.9 % (20.0-45.0) L Monocytes (%) (Auto) 18.1 % (1.0-10.0) H Eosinophils (%) (Auto) 2.2 % (0.0-3.0) Basophils (%) (Auto) 1.4 % (0.0-2.0) D-Dimer 2.39 mg/L FEU (0.00-0.49) H Arlen Huggins PA-C Aug 03, 2020 21:00
[2020-08-03] MEDS ORDERED: Digoxin 0.5mg/2ml Inj IVP ONE (21:15)
[2020-08-04] VITALS: BP 123/87
[2020-08-04 04:00] VITALS: BP 128/83
--- NOTE | 2020-08-04 06:16 | Hematology/Onc Progress Note ---
Assessment/Plan Assessment/Plan Status Narrative # Elevated ddimer - with a history of recent pna --> has been started on abx, ctx --> Cta is neg for pe --> consider repeat ddimer as needed --> on lovenox bid therapy (full dose anticoag) agree, also with card nstemi # Thrombocytopenia in the setting of alcohol abuse --> plt 50-->157 --> transfuse prn --> monitor for bleeding --> smear is noted # NSTEMI with troponin elevation --> ASA, Plavix, and Lovenox # Hypercoagulable disorder -- Afib with RVR --> Bb and digoxin for rate and rhythm control --> per cards # Multifocal PNA and respiratory failure - improved, was on NRB now NC --> neg testing for covid --> iso as needed --> abx # CHF acute on chronic systolic on diastolic HF, reduced EF 40%, s/p AICD # HTN and hypertensive urgency # Hx of substance abuse # Psychiatric disorder and homelessness # N/V # Cellulitis of lower extremity # Dvt ppx lovenox sq Appreciate consultation and mariela Rn Subjective HEENT: Denies: no symptoms, eye pain, blurred vision, tearing, double vision, ear pain, ear discharge, nose pain, nose congestion, throat pain, throat swelling, mouth pain, mouth swelling, other Cardiovascular: Denies: no symptoms, chest pain, edema, irregular heart rate, lightheadedness, palpitations, syncope, other Respiratory: Denies: no symptoms, cough, shortness of breath, SOB with excertion, SOB at rest, sputum, wheezing, other Gastrointestinal/Abdominal: Denies: no symptoms, abdomen distended, abdominal pain, black stools, tarry stools, blood in stool, constipated, diarrhea, difficulty swallowing, nausea, poor appetite, poor fluid intake, rectal bleeding, vomiting, other Genitourinary: Denies: no symptoms, burning, discharge, frequency, flank pain, hematuria, incontinence, pain, urgency, other Neurologic/Psychiatric: Denies: no symptoms, anxiety, depressed, emotional problems, headache, numbness, paresthesia, pre-existing deficit, seizure, tingling, tremors, weakness, other Endocrine: Denies: no symptoms, excessive sweating, flushing, intolerance to cold, intolerance to heat, increased hunger, increased thirst, increased urine, unexplained weight gain, unexplained weight loss, other Allergies: Coded Allergies: No Known Allergies (Unverified , 10/24/15) Subjective 08/02 meds reviewed, plts have markedly improved from 55 to above 150 08/03 labs reviewed, meds noted, no bleeding, dw rn, no hemolysis 08/04 no cp, no bleeding, tachy, no night sweats, meds noted Objective Objective Current Medications Medications (Trade) Dose Ordered Sig/Evan Route PRN Reason Start Time Stop Time Status Last Admin Dose Admin Acetaminophen (Tylenol) 650 mg Q4H PRN ORAL Mild Pain (Pain Scale 1-3) 07/27/20 13:30 08/26/20 13:29 08/03/20 15:34 Acetaminophen (Tylenol) 650 mg Q6H PRN ORAL Temp >100.5 08/02/20 12:00 09/01/20 11:59 Aspirin (ASA) 81 mg DAILY ORAL 07/28/20 09:00 09/11/20 08:59 08/03/20 08:41 Atorvastatin Calcium (Lipitor) 80 mg BEDTIME ORAL 07/27/20 21:00 10/25/20 20:59 08/03/20 21:00 Clopidogrel Bisulfate (Plavix) 75 mg DAILY ORAL 07/28/20 09:00 08/27/20 08:59 08/03/20 08:41 Digoxin (Lanoxin) 0.125 mg DAILY@0600 ORAL 08/05/20 06:00 11/03/20 05:59 Enoxaparin Sodium (Lovenox) 40 mg DAILY SUBQ 08/04/20 09:00 11/02/20 08:59 Furosemide (Lasix) 40 mg DAILY IV 07/27/20 16:15 08/26/20 16:14 08/01/20 09:17 Hydralazine HCl (Apresoline) 20 mg Q6H PRN IV For High Blood Pressure 07/27/20 16:15 10/25/20 16:14 07/27/20 16:18 Levofloxacin (Levaquin) 500 mg DAILY ORAL 08/02/20 11:30 08/09/20 11:29 08/03/20 08:41 Losartan Potassium (Cozaar) 50 mg DAILY ORAL 08/04/20 09:00 08/26/20 20:59 Metoprolol Tartrate (Lopressor) 50 mg EVERY 6 HOURS ORAL 08/01/20 00:00 10/25/20 16:14 08/04/20 05:31 Nitroglycerin (Ntg) 0.4 mg Q5M PRN SL Prn Chest Pain 07/27/20 16:15 08/26/20 16:14 07/27/20 16:24 Ondansetron HCl (Zofran) 4 mg Q4H PRN IVP Nausea & Vomiting 07/27/20 22:45 08/26/20 22:44 07/27/20 22:59 Thiamine HCl (Vitamin B1) 100 mg DAILY ORAL 07/28/20 09:00 08/27/20 08:59 08/03/20 08:41 Last 24 Hour Vital Signs Date Time Temp Pulse Resp B/P (MAP) Pulse Ox O2 Delivery O2 Flow Rate FiO2 08/04/20 05:31 90 128/83 08/04/20 04:00 89 08/04/20 04:00 98.2 90 20 128/83 (98) 95 08/04/20 00:00 97.3 111 20 123/87 (99) 95 08/04/20 00:00 112 123/87 08/04/20 00:00 112 08/03/20 21:52 113 08/03/20 21:00 Room Air 2.0 08/03/20 21:00 130/98 08/03/20 20:00 98.6 100 20 130/98 (109) 98 08/03/20 17:21 133 110/55 08/03/20 16:04 99.1 08/03/20 16:00 98.9 60 18 110/55 (73) 98 08/03/20 16:00 133 08/03/20 12:00 66 90/58 08/03/20 12:00 99.1 66 20 90/58 (69) 97 08/03/20 12:00 114 08/03/20 09:00 Room Air 2.0 08/03/20 08:42 97/56 08/03/20 08:00 98 08/03/20 08:00 98.1 90 20 97/56 (70) 93 08/03/20 05:23 106 122/81 08/03/20 04:00 106 08/03/20 04:00 97.5 69 20 122/81 (95) 97 08/03/20 00:00 98.8 64 20 108/73 (85) 97 08/03/20 00:00 93 108/73 08/03/20 00:00 93 08/02/20 21:01 115/74 08/02/20 21:00 Room Air 2.0 08/02/20 20:00 93 08/02/20 20:00 97.8 60 20 115/63 (80) 97 08/02/20 17:51 96 115/74 08/02/20 16:00 96 08/02/20 16:00 98.1 111 20 115/74 (88) 92 08/02/20 12:00 98.1 100 20 108/70 (83) 93 08/02/20 12:00 100 108/70 08/02/20 12:00 78 08/02/20 09:00 Room Air 2.0 08/02/20 08:53 145/93 08/02/20 08:00 99.3 75 22 145/93 (110) 93 08/02/20 08:00 85 Intake and Output 08/03/20 08/04/20 19:00 07:00 Intake Total 300 ml Balance 300 ml Intake Oral 300 ml # Voids 5 3 # Bowel Movements 2 1 Labs Test 08/01/20 16:25 08/01/20 17:00 08/02/20 07:34 08/03/20 07:00 White Blood Count 15.6 K/UL (4.8-10.8) 13.3 K/UL (4.8-10.8) 12.2 K/UL (4.8-10.8) Red Blood Count 4.93 M/UL (4.70-6.10) 4.92 M/UL (4.70-6.10) 3.93 M/UL (4.70-6.10) Hemoglobin 14.9 G/DL (14.2-18.0) 15.1 G/DL (14.2-18.0) 12.5 G/DL (14.2-18.0) Hematocrit 47.1 % (42.0-52.0) 46.7 % (42.0-52.0) 37.5 % (42.0-52.0) Mean Corpuscular Volume 96 FL (80-99) 95 FL (80-99) 95 FL (80-99) Mean Corpuscular Hemoglobin 30.2 PG (27.0-31.0) 30.7 PG (27.0-31.0) 31.7 PG (27.0-31.0) Mean Corpuscular Hemoglobin Concent 31.6 G/DL (32.0-36.0) 32.4 G/DL (32.0-36.0) 33.3 G/DL (32.0-36.0) Red Cell Distribution Width 13.7 % (11.6-14.8) 13.5 % (11.6-14.8) 13.8 % (11.6-14.8) Platelet Count 157 K/UL (150-450) 170 K/UL (150-450) 188 K/UL (150-450) Mean Platelet Volume 10.5 FL (6.5-10.1) 10.1 FL (6.5-10.1) 9.1 FL (6.5-10.1) Neutrophils (%) (Auto) % (45.0-75.0) % (45.0-75.0) 62.5 % (45.0-75.0) Lymphocytes (%) (Auto) % (20.0-45.0) % (20.0-45.0) 15.9 % (20.0-45.0) Monocytes (%) (Auto) % (1.0-10.0) % (1.0-10.0) 18.1 % (1.0-10.0) Eosinophils (%) (Auto) % (0.0-3.0) % (0.0-3.0) 2.2 % (0.0-3.0) Basophils (%) (Auto) % (0.0-2.0) % (0.0-2.0) 1.4 % (0.0-2.0) Differential Total Cells Counted 100 100 Neutrophils % (Manual) 68 % (45-75) 71 % (45-75) Lymphocytes % (Manual) 10 % (20-45) 11 % (20-45) Monocytes % (Manual) 18 % (1-10) 14 % (1-10) Eosinophils % (Manual) 1 % (0-3) 1 % (0-3) Basophils % (Manual) 0 % (0-2) 0 % (0-2) Band Neutrophils 3 % (0-8) 3 % (0-8) Platelet Estimate Decreased Adequate Platelet Morphology Normal Normal Red Blood Cell Morphology Normal Sodium Level 139 MMOL/L (136-145) Potassium Level 3.0 MMOL/L (3.5-5.1) Chloride Level 103 MMOL/L (98-107) Carbon Dioxide Level 29 MMOL/L (21-32) Anion Gap 7 mmol/L (5-15) Blood Urea Nitrogen 26 mg/dL (7-18) Creatinine 0.9 MG/DL (0.55-1.30) Estimat Glomerular Filtration Rate > 60 mL/min (>60) Glucose Level 103 MG/DL (74-106) Calcium Level 8.7 MG/DL (8.5-10.1) Total Bilirubin 0.6 MG/DL (0.2-1.0) Aspartate Amino Transf (AST/SGOT) 51 U/L (15-37) Alanine Aminotransferase (ALT/SGPT) 61 U/L (12-78) Alkaline Phosphatase 106 U/L (46-116) Total Protein 7.4 G/DL (6.4-8.2) Albumin 2.5 G/DL (3.4-5.0) Globulin 4.9 g/dL Albumin/Globulin Ratio 0.5 (1.0-2.7) Stool Occult Blood Positive (NEGATIVE) Hypochromasia 1+ Test 08/03/20 07:03 08/03/20 07:57 Pro-B-Type Natriuretic Peptide 779 pg/mL (0-125) D-Dimer 2.39 mg/L FEU (0.00-0.49) Height (Feet): 5 Height (Inches): 7.00 Weight (Pounds): 185 Objective Gen: Nad Pulm: Ctab, no cwr CV: Rrr, no mgr Abd: soft, nd, nt Ext: no cce Heath Matos MD Aug 04, 2020 06:15
--- NOTE | 2020-08-04 07:40 | NUR ---
NURSE HAND-OFF REPORT: Important Events on Shift:[] Patient Status: [STABLE] Diet: [LOW NA DIET] Pending Orders: [] Pending Results/Labs:[] Pending MD notification:[] Latest Vital Signs: Temperature 98.2 , Pulse 90 , B/P 128 /83 , Respiratory Rate 20 , O2 SAT 95 , Nasal Cannula, O2 Flow Rate 2.0 . Vital Sign Comment: [] EKG Rhythm: Sinus Rhythm Rhythm change?: N MD Notified?: Evin Dexter MD Response: Latest Ryan Fall Score: 45 Fall Risk: High Risk Safety Measures: Call light Within Reach, Bed Alarm Zone 1, Side Rails Side Rails x3, Bed position Low and Locked. Fall Precautions: Yellow Socks Patient Fall Education Report given to [HONORIO RIVERS].
[2020-08-04 08:00] VITALS: BP 84/50
--- NOTE | 2020-08-04 08:30 | NUR ---
NURSE NOTES: RECIEVED PT IN BED EYES CLOSED BUT AROUSABLE.NO S/S OF DISTRESS NOTED @ THIS TIME .DR. CRUZ MADE AWARE OF LOW BLOOD PRESSURE NO NEW ORDERS MADE.WILL CONTINUE TO MONITOR.
[2020-08-04] MEDS: Aspirin Baby 81mg ORAL SCH (09:00)
[2020-08-04] MEDS: Losartan 50mg tab ORAL SCH (09:00)
[2020-08-04] MEDS: Enoxaparin 40mg Inj SUBQ SCH (09:00)
[2020-08-04 09:20] LABS: HEMOGLOBIN 8.2 G/DL (14.2-18.0); MEAN CORPUSCULAR VOLUME 92 FL (80-99); PLATELET COUNT 200 K/UL (150-450); RED BLOOD COUNT 2.61 M/UL (4.70-6.10); RED CELL DISTRIBUTION WIDTH 13.7 % (11.6-14.8)
[2020-08-04 09:22] LABS: WHITE BLOOD COUNT 24.2 K/UL (4.8-10.8)
[2020-08-04] MEDS: Levofloxacin 500mg tab ORAL SCH (09:51)
[2020-08-04] MEDS: Thiamine 100mg tab ORAL SCH (09:51)
--- NOTE | 2020-08-04 09:51 | General Progress Note ---
Subjective Allergies: Coded Allergies: No Known Allergies (Unverified , 10/24/15) Subjective fever last night more awake hypotensive but asymptomatic sob better Objective Last 24 Hour Vital Signs Date Time Temp Pulse Resp B/P (MAP) Pulse Ox O2 Delivery O2 Flow Rate FiO2 08/04/20 08:00 97.0 82 20 84/50 (61) 98 08/04/20 05:31 90 128/83 08/04/20 04:00 89 08/04/20 04:00 98.2 90 20 128/83 (98) 95 08/04/20 00:00 97.3 111 20 123/87 (99) 95 08/04/20 00:00 112 123/87 08/04/20 00:00 112 08/03/20 21:52 113 08/03/20 21:00 Room Air 2.0 08/03/20 21:00 130/98 08/03/20 20:00 98.6 100 20 130/98 (109) 98 08/03/20 17:21 133 110/55 08/03/20 16:04 99.1 08/03/20 16:00 98.9 60 18 110/55 (73) 98 08/03/20 16:00 133 08/03/20 12:00 66 90/58 08/03/20 12:00 99.1 66 20 90/58 (69) 97 08/03/20 12:00 114 Intake and Output 08/03/20 08/04/20 19:00 07:00 Intake Total 300 ml Balance 300 ml Intake Oral 300 ml # Voids 5 3 # Bowel Movements 2 1 Laboratory Tests 08/04/20 08:30: White Blood Count 24.2#*H, Red Blood Count 2.61L, Hemoglobin 8.2#L, Hematocrit 24.0#L, Mean Corpuscular Volume 92, Mean Corpuscular Hemoglobin 31.3H, Mean Corpuscular Hemoglobin Concent 34.0, Red Cell Distribution Width 13.7, Platelet Count 200, Mean Platelet Volume 8.9, Neutrophils (%) (Auto) , Lymphocytes (%) (Auto) , Monocytes (%) (Auto) , Eosinophils (%) (Auto) , Basophils (%) (Auto) , Neutrophils % (Manual) [Pending], Lymphocytes % (Manual) [Pending], Platelet Estimate [Pending], Platelet Morphology [Pending], Digoxin Level 1.0 Height (Feet): 5 Height (Inches): 7.00 Weight (Pounds): 185 General Appearance: alert EENT: PERRL/EOMI Neck: supple Cardiovascular: regular rhythm Respiratory/Chest: crackles/rales Abdomen: non tender, soft Extremities: non-tender Assessment/Plan Status: stable Assessment/Plan: hypotension asymptomatic monitor , hold all bp meds sob better afib pna chf etoh abused pna hypokalemia kcl replacement iv abx iv sterids librium cont o2 pumonary tx id consult pulmonary on consult dw charge nurse Kadeem Luis MD Aug 04, 2020 09:51
--- NOTE | 2020-08-04 10:44 | Infectious Diseases Prog Note ---
Assessment/Plan Assessment/Plan antibiotics : levoquin A 1. pneumonia covid 19 test negative 2. hypertension 3. CHF 4. fever 5, leucocytosis increased P 1. d.c po levoquin 2. start zosyn 3. blood culture 4. UA and urine culture 5. will follow up cultures Subjective ROS Limited/Unobtainable: Yes Allergies: Coded Allergies: No Known Allergies (Unverified , 10/24/15) Objective Last 24 Hour Vital Signs Date Time Temp Pulse Resp B/P (MAP) Pulse Ox O2 Delivery O2 Flow Rate FiO2 08/04/20 08:00 97.0 82 20 84/50 (61) 98 08/04/20 08:00 95 08/04/20 05:31 90 128/83 08/04/20 04:00 89 08/04/20 04:00 98.2 90 20 128/83 (98) 95 08/04/20 00:00 97.3 111 20 123/87 (99) 95 08/04/20 00:00 112 123/87 08/04/20 00:00 112 08/03/20 21:52 113 08/03/20 21:00 Room Air 2.0 08/03/20 21:00 130/98 08/03/20 20:00 98.6 100 20 130/98 (109) 98 08/03/20 17:21 133 110/55 08/03/20 16:04 99.1 08/03/20 16:00 98.9 60 18 110/55 (73) 98 08/03/20 16:00 133 08/03/20 12:00 66 90/58 08/03/20 12:00 99.1 66 20 90/58 (69) 97 08/03/20 12:00 114 Height (Feet): 5 Height (Inches): 7.00 Weight (Pounds): 185 Respiratory/Chest: lungs clear Cardiovascular: normal rate, regular rhythm, no gallop/murmur Abdomen: soft, non tender Extremities: no edema Laboratory Tests Test 08/04/20 08:30 White Blood Count 24.2 K/UL (4.8-10.8) #*H Red Blood Count 2.61 M/UL (4.70-6.10) L Hemoglobin 8.2 G/DL (14.2-18.0) #L Hematocrit 24.0 % (42.0-52.0) #L Mean Corpuscular Volume 92 FL (80-99) Mean Corpuscular Hemoglobin 31.3 PG (27.0-31.0) H Mean Corpuscular Hemoglobin Concent 34.0 G/DL (32.0-36.0) Red Cell Distribution Width 13.7 % (11.6-14.8) Platelet Count 200 K/UL (150-450) Mean Platelet Volume 8.9 FL (6.5-10.1) Neutrophils (%) (Auto) % (45.0-75.0) Lymphocytes (%) (Auto) % (20.0-45.0) Monocytes (%) (Auto) % (1.0-10.0) Eosinophils (%) (Auto) % (0.0-3.0) Basophils (%) (Auto) % (0.0-2.0) Differential Total Cells Counted 100 Neutrophils % (Manual) 80 % (45-75) H Lymphocytes % (Manual) 7 % (20-45) L Monocytes % (Manual) 13 % (1-10) H Eosinophils % (Manual) 0 % (0-3) Basophils % (Manual) 0 % (0-2) Band Neutrophils 0 % (0-8) Platelet Estimate Adequate Platelet Morphology Normal Hypochromasia 1+ Digoxin Level 1.0 NG/ML (0.5-2.0) Current Medications Medications (Trade) Dose Ordered Sig/Evan Route PRN Reason Start Time Stop Time Status Last Admin Dose Admin Acetaminophen (Tylenol) 650 mg Q4H PRN ORAL Mild Pain (Pain Scale 1-3) 07/27/20 13:30 08/26/20 13:29 08/03/20 15:34 Acetaminophen (Tylenol) 650 mg Q6H PRN ORAL Temp >100.5 08/02/20 12:00 09/01/20 11:59 Aspirin (ASA) 81 mg DAILY ORAL 07/28/20 09:00 09/11/20 08:59 08/03/20 08:41 Atorvastatin Calcium (Lipitor) 80 mg BEDTIME ORAL 07/27/20 21:00 10/25/20 20:59 08/03/20 21:00 Clopidogrel Bisulfate (Plavix) 75 mg DAILY ORAL 07/28/20 09:00 08/27/20 08:59 08/03/20 08:41 Digoxin (Lanoxin) 0.125 mg DAILY@0600 ORAL 08/05/20 06:00 11/03/20 05:59 Enoxaparin Sodium (Lovenox) 40 mg DAILY SUBQ 08/04/20 09:00 11/02/20 08:59 Furosemide (Lasix) 40 mg DAILY IV 07/27/20 16:15 08/26/20 16:14 08/01/20 09:17 Hydralazine HCl (Apresoline) 20 mg Q6H PRN IV For High Blood Pressure 07/27/20 16:15 10/25/20 16:14 07/27/20 16:18 Levofloxacin (Levaquin) 500 mg DAILY ORAL 08/02/20 11:30 08/09/20 11:29 08/04/20 09:51 Losartan Potassium (Cozaar) 50 mg DAILY ORAL 08/04/20 09:00 08/26/20 20:59 Metoprolol Tartrate (Lopressor) 50 mg EVERY 6 HOURS ORAL 08/01/20 00:00 10/25/20 16:14 08/04/20 05:31 Nitroglycerin (Ntg) 0.4 mg Q5M PRN SL Prn Chest Pain 07/27/20 16:15 08/26/20 16:14 07/27/20 16:24 Ondansetron HCl (Zofran) 4 mg Q4H PRN IVP Nausea & Vomiting 07/27/20 22:45 08/26/20 22:44 07/27/20 22:59 Thiamine HCl (Vitamin B1) 100 mg DAILY ORAL 07/28/20 09:00 08/27/20 08:59 08/04/20 09:51 Tuan Guajardo MD Aug 04, 2020 10:44
--- NOTE | 2020-08-04 11:00 | NUR ---
NURSE NOTES: DR. FINNEGAN IN [place]OUNDS MADE AWARE OF HIGH WBC ,NEW ORDERS MADE AND CARRIED OUT..
--- NOTE | 2020-08-04 11:21 | Pulmonology Progress Note ---
Subjective ROS Limited/Unobtainable: Yes Interval Events: None new reported Constitutional: Reports: fever, other - resolved; Denies: chills HEENT: Repors: no symptoms Respiratory: Reports: shortness of breath Cardiovascular: Reports: no symptoms Gastrointestinal/Abdominal: Reports: nausea - yesterday; Denies: vomiting, diarrhea Genitourinary: Reports: no symptoms Musculoskeletal: Denies: pain Allergies: Coded Allergies: No Known Allergies (Unverified , 10/24/15) Objective Last 24 Hour Vital Signs Date Time Temp Pulse Resp B/P (MAP) Pulse Ox O2 Delivery O2 Flow Rate FiO2 08/04/20 08:00 97.0 82 20 84/50 (61) 98 08/04/20 08:00 95 08/04/20 05:31 90 128/83 08/04/20 04:00 89 08/04/20 04:00 98.2 90 20 128/83 (98) 95 08/04/20 00:00 97.3 111 20 123/87 (99) 95 08/04/20 00:00 112 123/87 08/04/20 00:00 112 08/03/20 21:52 113 08/03/20 21:00 Room Air 2.0 08/03/20 21:00 130/98 08/03/20 20:00 98.6 100 20 130/98 (109) 98 08/03/20 17:21 133 110/55 08/03/20 16:04 99.1 08/03/20 16:00 98.9 60 18 110/55 (73) 98 08/03/20 16:00 133 08/03/20 12:00 66 90/58 08/03/20 12:00 99.1 66 20 90/58 (69) 97 08/03/20 12:00 114 Intake and Output 08/03/20 08/04/20 19:00 07:00 Intake Total 300 ml Balance 300 ml Intake Oral 300 ml # Voids 5 3 # Bowel Movements 2 1 General Appearance: no acute distress HEENT: atraumatic Respiratory: crackles/rales Cardiovascular: normal rate, regular rhythm Abdomen: soft, non tender Laboratory Tests 08/04/20 08:30: White Blood Count 24.2#*H, Red Blood Count 2.61L, Hemoglobin 8.2#L, Hematocrit 24.0#L, Mean Corpuscular Volume 92, Mean Corpuscular Hemoglobin 31.3H, Mean Corpuscular Hemoglobin Concent 34.0, Red Cell Distribution Width 13.7, Platelet Count 200, Mean Platelet Volume 8.9, Neutrophils (%) (Auto) , Lymphocytes (%) (Auto) , Monocytes (%) (Auto) , Eosinophils (%) (Auto) , Basophils (%) (Auto) , Differential Total Cells Counted 100, Neutrophils % (Manual) 80H, Lymphocytes % (Manual) 7L, Monocytes % (Manual) 13H, Eosinophils % (Manual) 0, Basophils % (Manual) 0, Band Neutrophils 0, Platelet Estimate Adequate, Platelet Morphology Normal, Hypochromasia 1+, Digoxin Level 1.0 Current Medications Medications (Trade) Dose Ordered Sig/Evan Route PRN Reason Start Time Stop Time Status Last Admin Dose Admin Acetaminophen (Tylenol) 650 mg Q4H PRN ORAL Mild Pain (Pain Scale 1-3) 07/27/20 13:30 08/26/20 13:29 08/03/20 15:34 Acetaminophen (Tylenol) 650 mg Q6H PRN ORAL Temp >100.5 08/02/20 12:00 09/01/20 11:59 Aspirin (ASA) 81 mg DAILY ORAL 07/28/20 09:00 09/11/20 08:59 08/03/20 08:41 Atorvastatin Calcium (Lipitor) 80 mg BEDTIME ORAL 07/27/20 21:00 10/25/20 20:59 08/03/20 21:00 Clopidogrel Bisulfate (Plavix) 75 mg DAILY ORAL 07/28/20 09:00 08/27/20 08:59 08/03/20 08:41 Digoxin (Lanoxin) 0.125 mg DAILY@0600 ORAL 08/05/20 06:00 11/03/20 05:59 Enoxaparin Sodium (Lovenox) 40 mg DAILY SUBQ 08/04/20 09:00 11/02/20 08:59 Furosemide (Lasix) 40 mg DAILY IV 07/27/20 16:15 08/26/20 16:14 08/01/20 09:17 Hydralazine HCl (Apresoline) 20 mg Q6H PRN IV For High Blood Pressure 07/27/20 16:15 10/25/20 16:14 07/27/20 16:18 Losartan Potassium (Cozaar) 50 mg DAILY ORAL 08/04/20 09:00 08/26/20 20:59 Metoprolol Tartrate (Lopressor) 50 mg EVERY 6 HOURS ORAL 08/01/20 00:00 10/25/20 16:14 08/04/20 05:31 Nitroglycerin (Ntg) 0.4 mg Q5M PRN SL Prn Chest Pain 07/27/20 16:15 08/26/20 16:14 07/27/20 16:24 Ondansetron HCl (Zofran) 4 mg Q4H PRN IVP Nausea & Vomiting 07/27/20 22:45 08/26/20 22:44 07/27/20 22:59 Piperacillin Sod/ Tazobactam Sod 3.375 gm/Sodium Chloride 110 ml @ 27.5 mls/hr EVERY 8 HOURS IVPB 08/04/20 12:00 08/09/20 11:59 Thiamine HCl (Vitamin B1) 100 mg DAILY ORAL 07/28/20 09:00 08/27/20 08:59 08/04/20 09:51 Assessment/Plan Assessment/Plan 1. High D-dimer. - No evidence of pulmonary embolism on CTA chest -Lovenox 80 mg BID held due to thrombocytopenia -> now plt count normal and D-dimer lower -> will start Lovenox 40 mg QD - f/u D-dimer (08/03) trending down 2. AICD. 3. CHF. 4. CAD. 5. Leukocytosis - ID following -On antibiotics - f/u BCx, UCx 6. Hypokalemia 7. Thrombocytopenia; improved - heme following 8. COVID-19 negative - Ag neg (07/27) - PCR neg (07/28) Patient needs rate control with digoxin. Cardiology is following. Beta-anay has also been started. The patient has also received amiodarone. Continue medications. Diurese as needed. No indication for steroids. Continue supportive care and p.r.n. medications. The care of this patient was discussed with my supervising physician Time spent for this encounter was approximately 31 minutes James Fernandes Aug 04, 2020 11:21
[2020-08-04 12:00] VITALS: BP 86/39
--- NOTE | 2020-08-04 13:07 | Surgery Progress Note ---
Surgery Progress Note Subjective Symptoms: improved, tolerating diet, passing flatus Objective Last 24 Hour Vital Signs Date Time Temp Pulse Resp B/P (MAP) Pulse Ox O2 Delivery O2 Flow Rate FiO2 08/04/20 12:00 65 94/57 08/04/20 12:00 98 08/04/20 09:00 Room Air 08/04/20 09:00 84/50 08/04/20 08:00 97.0 82 20 84/50 (61) 98 08/04/20 08:00 95 08/04/20 05:31 90 128/83 08/04/20 04:00 89 08/04/20 04:00 98.2 90 20 128/83 (98) 95 08/04/20 00:00 97.3 111 20 123/87 (99) 95 08/04/20 00:00 112 123/87 08/04/20 00:00 112 08/03/20 21:52 113 08/03/20 21:00 Room Air 2.0 08/03/20 21:00 130/98 08/03/20 20:00 98.6 100 20 130/98 (109) 98 08/03/20 17:21 133 110/55 08/03/20 16:04 99.1 08/03/20 16:00 98.9 60 18 110/55 (73) 98 08/03/20 16:00 133 I&O Intake and Output 08/03/20 08/04/20 19:00 07:00 Intake Total 300 ml Balance 300 ml Intake Oral 300 ml # Voids 5 3 # Bowel Movements 2 1 Dressing: saturated Cardiovascular: RSR Respiratory: clear, decreased breath sounds Abdomen: soft, non-tender, present bowel sounds, non-distended Extremities: no edema, no tenderness, no cyanosis Laboratory Tests Test 08/04/20 08:30 White Blood Count 24.2 K/UL (4.8-10.8) #*H Red Blood Count 2.61 M/UL (4.70-6.10) L Hemoglobin 8.2 G/DL (14.2-18.0) #L Hematocrit 24.0 % (42.0-52.0) #L Mean Corpuscular Volume 92 FL (80-99) Mean Corpuscular Hemoglobin 31.3 PG (27.0-31.0) H Mean Corpuscular Hemoglobin Concent 34.0 G/DL (32.0-36.0) Red Cell Distribution Width 13.7 % (11.6-14.8) Platelet Count 200 K/UL (150-450) Mean Platelet Volume 8.9 FL (6.5-10.1) Neutrophils (%) (Auto) % (45.0-75.0) Lymphocytes (%) (Auto) % (20.0-45.0) Monocytes (%) (Auto) % (1.0-10.0) Eosinophils (%) (Auto) % (0.0-3.0) Basophils (%) (Auto) % (0.0-2.0) Differential Total Cells Counted 100 Neutrophils % (Manual) 80 % (45-75) H Lymphocytes % (Manual) 7 % (20-45) L Monocytes % (Manual) 13 % (1-10) H Eosinophils % (Manual) 0 % (0-3) Basophils % (Manual) 0 % (0-2) Band Neutrophils 0 % (0-8) Platelet Estimate Adequate Platelet Morphology Normal Hypochromasia 1+ Digoxin Level 1.0 NG/ML (0.5-2.0) Plan Problems: (1) Cellulitis of lower extremity Assessment & Plan: Pt presented on admission with wound of unknown etiology R 1st metatarsal. Pt's hygiene is grossly neglected. To properly assess wound,pt's feet required extensive scrubbing to remove caked on dirt both feet. erythema and edema noted mild cellulitis Base of wound dorso/lateral R 1st metatarsalis darío with loose edges(L)2.3cm x (W)4cm. No exudate noted. NO erythema,swelling or changes in skin temp periwound. Second laceration noted to plantar-base of R 1st metatarsal(L)0.3cm x (W)1.2cm. Base of wound is darío. Edges are adherent to base of wound. No erythema swelling or changes in skin temp periwound. L foot 3rd and 4th metatarsals noted to have small ulcers that are dry . No surrounding erythema noted. Tx.Plan: Apply Betadine to dorsal and plantar wounds R 1st metatarsal. Cover with Gauze and wrap with Kerlix. Change every 3 days and prn. Swab ulcers dorsal L 3rd and 4th Metatarsals with Betadine Daily. Leave open to Air. turn q2h off load pressure nutritional optimization (2) Hypokalemia (3) Leukocytosis, unspecified (4) NSTEMI (non-ST elevated myocardial infarction) (5) Atrial fibrillation with RVR (6) Alcohol intoxication Dino Angelo Aug 04, 2020 13:07
[2020-08-04] MEDS: Piperacillin/Tazobactam 3.375 GM in NS 110 ML IVPB SCH ×2 (13:17→21:01)
[2020-08-04 16:00] VITALS: BP 91/54
--- NOTE | 2020-08-04 16:13 | NUR ---
CASE MANAGEMENT:REVIEW 08/04/20 SI: NSTEMI. AFIB W/RVR. MULTIFOCAL PNA VS: T 96.7 HR 65 RR 15 B/P 86/39 SATS 97% ON RA LABS: WBC 24.2 IS: IV ROCEPHIN Q24 IV DECADRON QD LOPRESSOR PO Q6HRS PLAVIX PO QD ASA PO QD LIBRIUM PO Q8HRS LOVENOX SQ Q12 COZAAR PO Q12 IV LASIX QD :TELEMETRY DCP: HOME WITH FRIENDS
--- NOTE | 2020-08-04 19:20 | NUR ---
NURSE HAND-OFF REPORT: Important Events on Shift:[] Patient Status: [] Diet: [] Pending Orders: [UA] Pending Results/Labs:[] Pending MD notification:[] Latest Vital Signs: Temperature 97.9 , Pulse 93 , B/P 91 /54 , Respiratory Rate 18 , O2 SAT 90 , Nasal Cannula, O2 Flow Rate 2.0 . Vital Sign Comment: [LOW BP, ANTICOAGULANT ORDERS] EKG Rhythm: Sinus Rhythm Rhythm change?: N MD Notified?: Evin Dexter MD Response: Latest Ryan Fall Score: 45 Fall Risk: High Risk Safety Measures: Call light Within Reach, Bed Alarm Zone 1, Side Rails Side Rails x3, Bed position Low and Locked. Fall Precautions: Yellow Socks Report given to [EDOUARD BROWN].
--- NOTE | 2020-08-04 19:55 | NUR ---
NURSE NOTES: Patient is in bed, awake, able to make needs known. No signs of distress or SOB. No C/O pain. Both IVs intact and patent. Bed locked and in lowest position. Call light is within easy reach. Reminded patient to call for assist before ambulating. Bed alarm on. Will continue to monitor.
[2020-08-04 20:00] VITALS: BP 105/57
[2020-08-04] MEDS: Atorvastatin 80mg tab ORAL SCH (21:01)
--- NOTE | 2020-08-04 22:35 | Cardiology Progress Note ---
Assessment/Plan Status Narrative 1. NSTEMI with troponin elevation - downtrended antiplatelets and AC per hematology due to thrombocytopenia 2. Afib with RVR Bb and digoxin for rate and rhythm control 3. Multifocal PNA and respiratory failure - improved, was on NRB now NC Leukocytosis h/o recent COVID-19, repeat swab pending 4. CHF acute on chronic systolic on diastolic HF, reduced EF 35-40%, s/p AICD IV Lasix for diuresis BNP improved 5. HTN and hypertensive urgency improved on multiple antihypertensives 6. Hx of substance abuse 7. Psychiatric disorder and homelessness 8. N/V 9. Thrombocytopenia 10. NSVT 11. R foot cellulitis WBCs elevated, on new IV abx for R foot cellulitis, s/p debridement. AC and antiplatelets per hematology, breathing easily when lying flat, BNP improved, continue medical therapy. Subjective ROS Limited/Unobtainable: No Subjective c/o headache, lying flat, denies chest pain or worsening SOB Objective Last 24 Hour Vital Signs Date Time Temp Pulse Resp B/P (MAP) Pulse Ox O2 Delivery O2 Flow Rate FiO2 08/04/20 20:22 Room Air 08/04/20 20:00 97.9 84 18 105/57 (73) 96 08/04/20 19:06 113 08/04/20 17:45 93 91/54 08/04/20 16:00 93 08/04/20 16:00 97.9 104 18 91/54 (66) 90 08/04/20 12:00 65 94/57 08/04/20 12:00 98 08/04/20 12:00 96.7 65 15 86/39 (55) 97 08/04/20 09:00 Room Air 08/04/20 09:00 84/50 08/04/20 08:00 97.0 82 20 84/50 (61) 98 08/04/20 08:00 95 08/04/20 05:31 90 128/83 08/04/20 04:00 89 08/04/20 04:00 98.2 90 20 128/83 (98) 95 08/04/20 00:00 97.3 111 20 123/87 (99) 95 08/04/20 00:00 112 123/87 08/04/20 00:00 112 General Appearance: no apparent distress EENT: PERRL/EOMI Neck: no JVD Rhythm: Afib Cardiovascular: normal rate Respiratory/Chest: no respiratory distress, no accessory muscle use Extremities: trace edema Neurologic: electrotyper II-XII grossly normal Intake and Output 08/03/20 08/04/20 19:00 07:00 Intake Total 300 ml Balance 300 ml Intake Oral 300 ml # Voids 5 3 # Bowel Movements 2 1 Laboratory Tests Test 08/04/20 08:30 White Blood Count 24.2 K/UL (4.8-10.8) #*H Red Blood Count 2.61 M/UL (4.70-6.10) L Hemoglobin 8.2 G/DL (14.2-18.0) #L Hematocrit 24.0 % (42.0-52.0) #L Mean Corpuscular Volume 92 FL (80-99) Mean Corpuscular Hemoglobin 31.3 PG (27.0-31.0) H Mean Corpuscular Hemoglobin Concent 34.0 G/DL (32.0-36.0) Red Cell Distribution Width 13.7 % (11.6-14.8) Platelet Count 200 K/UL (150-450) Mean Platelet Volume 8.9 FL (6.5-10.1) Neutrophils (%) (Auto) % (45.0-75.0) Lymphocytes (%) (Auto) % (20.0-45.0) Monocytes (%) (Auto) % (1.0-10.0) Eosinophils (%) (Auto) % (0.0-3.0) Basophils (%) (Auto) % (0.0-2.0) Differential Total Cells Counted 100 Neutrophils % (Manual) 80 % (45-75) H Lymphocytes % (Manual) 7 % (20-45) L Monocytes % (Manual) 13 % (1-10) H Eosinophils % (Manual) 0 % (0-3) Basophils % (Manual) 0 % (0-2) Band Neutrophils 0 % (0-8) Platelet Estimate Adequate Platelet Morphology Normal Hypochromasia 1+ Digoxin Level 1.0 NG/ML (0.5-2.0) Arlen Huggins PA-C Aug 04, 2020 22:35
--- NOTE | 2020-08-04 22:46 | NUR ---
NURSE NOTES: Urine specimen collected and sent to lab.
[2020-08-04 22:50] LABS: APPEARANCE,URINE CLEAR; BILIRUBIN, URINE NEGATIVE (NEGATIVE); COLOR,URINE PALE YELLOW; GLUCOSE, URINE (UA) NEGATIVE (NEGATIVE); KETONES,URINE NEGATIVE (NEGATIVE); LEUKOCYTE ESTERASE ,URINE NEGATIVE (NEGATIVE); NITRITE,URINE NEGATIVE (NEGATIVE); PH,URINE 5 (4.5-8.0); PROTEIN,URINE 1+ (NEGATIVE); UROBILINOGEN,URINE NORMAL MG/DL (0.0-1.0)
[2020-08-05] VITALS: BP 103/50
[2020-08-05 03:58] VITALS: BP 109/67
[2020-08-05] MEDS: Piperacillin/Tazobactam 3.375 GM in NS 110 ML IVPB SCH ×3 (05:13→21:36)
[2020-08-05] MEDS: Digoxin 0.125mg tab ORAL SCH (05:14)
--- NOTE | 2020-08-05 05:31 | NUR ---
NURSE NOTES: Wound care performed on both feet and dressing changed. Patient tolerated well.
--- NOTE | 2020-08-05 06:25 | NUR ---
NURSE HAND-OFF REPORT: Important Events on Shift: Urine collected; foot dressing changed Patient Status: Stable Diet: Low Na Pending Orders: N/A Pending Results/Labs: BMP Pending notification: N/A Latest Vital Signs: Temperature 97.8 , Pulse 98 , B/P 109 /67 , Respiratory Rate 16 , O2 SAT 95 , Nasal Cannula, O2 Flow Rate 2.0 . Vital Sign Comment: N/A EKG Rhythm: SR w/PVCs Rhythm change?: N Notified?: N Response: Latest Ryan Fall Score: 45 Fall Risk: High Risk Safety Measures: Call light Within Reach, Bed Alarm Zone 1, Side Rails Side Rails x3, Bed position Low and Locked. Fall Precautions: Yellow Socks Addendum: 08/05/20 at 0728 by EDOUARD BROWN RN Report given to TITA Lin
--- NOTE | 2020-08-05 06:52 | Hematology/Onc Progress Note ---
Assessment/Plan Assessment/Plan # Anemia r/o iron deficiency, r/o gi bleed --> occult blood and anemia panel ordered --> consider gi eval --> lovenox currently given # Elevated ddimer - with a history of recent pna --> has been started on abx, ctx --> Cta is neg for pe --> consider repeat ddimer as needed --> on lovenox per cards # Thrombocytopenia in the setting of alcohol abuse --> plt 50-->157-->200 --> transfuse prn --> monitor for bleeding --> smear is noted # NSTEMI with troponin elevation --> ASA, Plavix, and Lovenox # Hypercoagulable disorder -- Afib with RVR --> Bb and digoxin for rate and rhythm control --> per cards # Multifocal PNA and respiratory failure - improved, was on NRB now NC --> neg testing for covid --> iso as needed --> abx # CHF acute on chronic systolic on diastolic HF, reduced EF 40%, s/p AICD # HTN and hypertensive urgency # Hx of substance abuse # Psychiatric disorder and homelessness # N/V # Cellulitis of lower extremity # Dvt ppx lovenox sq Appreciate consultation and mariela Rn Subjective Allergies: Coded Allergies: No Known Allergies (Unverified , 10/24/15) All Systems: reviewed and negative except above Subjective 08/02 meds reviewed, plts have markedly improved from 55 to above 150 08/03 labs reviewed, meds noted, no bleeding, mariela rn, no hemolysis 08/04 no cp, no bleeding, tachy, no night sweats, meds noted 08/05 tired this am, wbc 25, hgb 8.2, pending cbc and anemia panel Objective Objective Current Medications Medications (Trade) Dose Ordered Sig/Evan Route PRN Reason Start Time Stop Time Status Last Admin Dose Admin Acetaminophen (Tylenol) 650 mg Q4H PRN ORAL Mild Pain (Pain Scale 1-3) 07/27/20 13:30 08/26/20 13:29 08/03/20 15:34 Acetaminophen (Tylenol) 650 mg Q6H PRN ORAL Temp >100.5 08/02/20 12:00 09/01/20 11:59 Aspirin (ASA) 81 mg DAILY ORAL 07/28/20 09:00 09/11/20 08:59 08/03/20 08:41 Atorvastatin Calcium (Lipitor) 80 mg BEDTIME ORAL 07/27/20 21:00 10/25/20 20:59 08/04/20 21:01 Clopidogrel Bisulfate (Plavix) 75 mg DAILY ORAL 07/28/20 09:00 08/27/20 08:59 08/03/20 08:41 Digoxin (Lanoxin) 0.125 mg DAILY@0600 ORAL 08/05/20 06:00 11/03/20 05:59 08/05/20 05:14 Enoxaparin Sodium (Lovenox) 40 mg DAILY SUBQ 08/04/20 09:00 11/02/20 08:59 Furosemide (Lasix) 40 mg DAILY IV 07/27/20 16:15 08/26/20 16:14 08/01/20 09:17 Hydralazine HCl (Apresoline) 20 mg Q6H PRN IV For High Blood Pressure 07/27/20 16:15 10/25/20 16:14 07/27/20 16:18 Losartan Potassium (Cozaar) 50 mg DAILY ORAL 08/04/20 09:00 08/26/20 20:59 Metoprolol Tartrate (Lopressor) 50 mg EVERY 6 HOURS ORAL 08/01/20 00:00 10/25/20 16:14 08/04/20 05:31 Nitroglycerin (Ntg) 0.4 mg Q5M PRN SL Prn Chest Pain 07/27/20 16:15 08/26/20 16:14 07/27/20 16:24 Ondansetron HCl (Zofran) 4 mg Q4H PRN IVP Nausea & Vomiting 07/27/20 22:45 08/26/20 22:44 07/27/20 22:59 Piperacillin Sod/ Tazobactam Sod 3.375 gm/Sodium Chloride 110 ml @ 27.5 mls/hr EVERY 8 HOURS IVPB 08/04/20 12:00 08/09/20 11:59 08/05/20 05:13 Thiamine HCl (Vitamin B1) 100 mg DAILY ORAL 07/28/20 09:00 08/27/20 08:59 08/04/20 09:51 Last 24 Hour Vital Signs Date Time Temp Pulse Resp B/P (MAP) Pulse Ox O2 Delivery O2 Flow Rate FiO2 08/05/20 05:14 98 08/05/20 05:13 98 109/67 08/05/20 03:58 97.8 99 16 109/67 (81) 95 08/05/20 03:30 98 08/05/20 00:36 56 103/50 08/05/20 00:00 98.5 107 16 103/50 (67) 95 08/04/20 23:28 107 08/04/20 20:22 Room Air 08/04/20 20:00 97.9 84 18 105/57 (73) 96 08/04/20 19:06 113 08/04/20 17:45 93 91/54 08/04/20 16:00 93 08/04/20 16:00 97.9 104 18 91/54 (66) 90 08/04/20 12:00 65 94/57 08/04/20 12:00 98 08/04/20 12:00 96.7 65 15 86/39 (55) 97 08/04/20 09:00 Room Air 08/04/20 09:00 84/50 08/04/20 08:00 97.0 82 20 84/50 (61) 98 08/04/20 08:00 95 08/04/20 05:31 90 128/83 08/04/20 04:00 89 08/04/20 04:00 98.2 90 20 128/83 (98) 95 08/04/20 00:00 97.3 111 20 123/87 (99) 95 08/04/20 00:00 112 123/87 08/04/20 00:00 112 08/03/20 21:52 113 08/03/20 21:00 Room Air 2.0 08/03/20 21:00 130/98 08/03/20 20:00 98.6 100 20 130/98 (109) 98 08/03/20 17:21 133 110/55 08/03/20 16:04 99.1 08/03/20 16:00 98.9 60 18 110/55 (73) 98 08/03/20 16:00 133 08/03/20 12:00 66 90/58 08/03/20 12:00 99.1 66 20 90/58 (69) 97 08/03/20 12:00 114 08/03/20 09:00 Room Air 2.0 08/03/20 08:42 97/56 08/03/20 08:00 98 08/03/20 08:00 98.1 90 20 97/56 (70) 93 Intake and Output 08/04/20 08/05/20 19:00 07:00 # Voids 4 3 # Bowel Movements 1 Labs Test 08/02/20 07:34 08/03/20 07:00 08/03/20 07:03 08/03/20 07:57 White Blood Count 13.3 K/UL (4.8-10.8) 12.2 K/UL (4.8-10.8) Red Blood Count 4.92 M/UL (4.70-6.10) 3.93 M/UL (4.70-6.10) Hemoglobin 15.1 G/DL (14.2-18.0) 12.5 G/DL (14.2-18.0) Hematocrit 46.7 % (42.0-52.0) 37.5 % (42.0-52.0) Mean Corpuscular Volume 95 FL (80-99) 95 FL (80-99) Mean Corpuscular Hemoglobin 30.7 PG (27.0-31.0) 31.7 PG (27.0-31.0) Mean Corpuscular Hemoglobin Concent 32.4 G/DL (32.0-36.0) 33.3 G/DL (32.0-36.0) Red Cell Distribution Width 13.5 % (11.6-14.8) 13.8 % (11.6-14.8) Platelet Count 170 K/UL (150-450) 188 K/UL (150-450) Mean Platelet Volume 10.1 FL (6.5-10.1) 9.1 FL (6.5-10.1) Neutrophils (%) (Auto) % (45.0-75.0) 62.5 % (45.0-75.0) Lymphocytes (%) (Auto) % (20.0-45.0) 15.9 % (20.0-45.0) Monocytes (%) (Auto) % (1.0-10.0) 18.1 % (1.0-10.0) Eosinophils (%) (Auto) % (0.0-3.0) 2.2 % (0.0-3.0) Basophils (%) (Auto) % (0.0-2.0) 1.4 % (0.0-2.0) Differential Total Cells Counted 100 Neutrophils % (Manual) 71 % (45-75) Lymphocytes % (Manual) 11 % (20-45) Monocytes % (Manual) 14 % (1-10) Eosinophils % (Manual) 1 % (0-3) Basophils % (Manual) 0 % (0-2) Band Neutrophils 3 % (0-8) Platelet Estimate Adequate Platelet Morphology Normal Hypochromasia 1+ Pro-B-Type Natriuretic Peptide 779 pg/mL (0-125) D-Dimer 2.39 mg/L FEU (0.00-0.49) Test 08/04/20 08:30 08/04/20 22:44 White Blood Count 24.2 K/UL (4.8-10.8) Red Blood Count 2.61 M/UL (4.70-6.10) Hemoglobin 8.2 G/DL (14.2-18.0) Hematocrit 24.0 % (42.0-52.0) Mean Corpuscular Volume 92 FL (80-99) Mean Corpuscular Hemoglobin 31.3 PG (27.0-31.0) Mean Corpuscular Hemoglobin Concent 34.0 G/DL (32.0-36.0) Red Cell Distribution Width 13.7 % (11.6-14.8) Platelet Count 200 K/UL (150-450) Mean Platelet Volume 8.9 FL (6.5-10.1) Neutrophils (%) (Auto) % (45.0-75.0) Lymphocytes (%) (Auto) % (20.0-45.0) Monocytes (%) (Auto) % (1.0-10.0) Eosinophils (%) (Auto) % (0.0-3.0) Basophils (%) (Auto) % (0.0-2.0) Differential Total Cells Counted 100 Neutrophils % (Manual) 80 % (45-75) Lymphocytes % (Manual) 7 % (20-45) Monocytes % (Manual) 13 % (1-10) Eosinophils % (Manual) 0 % (0-3) Basophils % (Manual) 0 % (0-2) Band Neutrophils 0 % (0-8) Platelet Estimate Adequate Platelet Morphology Normal Hypochromasia 1+ Digoxin Level 1.0 NG/ML (0.5-2.0) Urine Color Pale yellow Urine Appearance Clear Urine pH 5 (4.5-8.0) Urine Specific [place] 1.020 (1.005-1.035) Urine Protein 1+ (NEGATIVE) Urine Glucose (UA) Negative (NEGATIVE) Urine Ketones Negative (NEGATIVE) Urine Blood Negative (NEGATIVE) Urine Nitrite Negative (NEGATIVE) Urine Bilirubin Negative (NEGATIVE) Urine Urobilinogen Normal MG/DL (0.0-1.0) Urine Leukocyte Esterase Negative (NEGATIVE) Urine RBC 0 /HPF (0 - 0) Urine WBC 0-2 /HPF (0 - 0) Urine Squamous Epithelial Cells Occasional /LPF Urine Uric Acid Crystals Moderate /LPF (NONE) Urine Bacteria Occasional /HPF (NONE) Height (Feet): 5 Height (Inches): 7.00 Weight (Pounds): 185 Objective Gen: Nad Pulm: Ctab, no cwr CV: Rrr, no mgr Abd: soft, nd, nt Ext: no cce Heath Matos MD Aug 05, 2020 06:52
[2020-08-05 08:00] VITALS: BP 98/52
[2020-08-05] MEDS: Losartan 50mg tab ORAL SCH (09:00)
[2020-08-05] MEDS: Enoxaparin 40mg Inj SUBQ SCH (09:30)
--- NOTE | 2020-08-05 09:30 | Pulmonology Progress Note ---
Subjective ROS Limited/Unobtainable: No Interval Events: None new reported Constitutional: Reports: fever, other - resolved; Denies: chills HEENT: Repors: no symptoms Respiratory: Reports: shortness of breath Cardiovascular: Reports: no symptoms Gastrointestinal/Abdominal: Reports: nausea - yesterday; Denies: vomiting, diarrhea Genitourinary: Reports: no symptoms Musculoskeletal: Denies: pain Allergies: Coded Allergies: No Known Allergies (Unverified , 10/24/15) All Systems: reviewed and negative except above Objective Last 24 Hour Vital Signs Date Time Temp Pulse Resp B/P (MAP) Pulse Ox O2 Delivery O2 Flow Rate FiO2 08/05/20 05:14 98 08/05/20 05:13 98 109/67 08/05/20 03:58 97.8 99 16 109/67 (81) 95 08/05/20 03:30 98 08/05/20 00:36 56 103/50 08/05/20 00:00 98.5 107 16 103/50 (67) 95 08/04/20 23:28 107 08/04/20 20:22 Room Air 08/04/20 20:00 97.9 84 18 105/57 (73) 96 08/04/20 19:06 113 08/04/20 17:45 93 91/54 08/04/20 16:00 93 08/04/20 16:00 97.9 104 18 91/54 (66) 90 08/04/20 12:00 65 94/57 08/04/20 12:00 98 08/04/20 12:00 96.7 65 15 86/39 (55) 97 Intake and Output 08/04/20 08/05/20 19:00 07:00 # Voids 4 3 # Bowel Movements 1 General Appearance: no acute distress HEENT: atraumatic Respiratory: crackles/rales Cardiovascular: normal rate, regular rhythm Abdomen: soft, non tender Laboratory Tests 08/04/20 22:44: Urine Color Pale yellow, Urine Appearance Clear, Urine pH 5, Urine Specific [place] 1.020, Urine Protein 1+H, Urine Glucose (UA) Negative, Urine Ketones Negative, Urine Blood Negative, Urine Nitrite Negative, Urine Bilirubin Negative, Urine Urobilinogen Normal, Urine Leukocyte Esterase Negative, Urine RBC 0, Urine WBC 0-2, Urine Squamous Epithelial Cells Occasional, Urine Uric Acid Crystals ModerateH, Urine Bacteria Occasional Current Medications Medications (Trade) Dose Ordered Sig/Evan Route PRN Reason Start Time Stop Time Status Last Admin Dose Admin Acetaminophen (Tylenol) 650 mg Q4H PRN ORAL Mild Pain (Pain Scale 1-3) 07/27/20 13:30 08/26/20 13:29 08/03/20 15:34 Acetaminophen (Tylenol) 650 mg Q6H PRN ORAL Temp >100.5 08/02/20 12:00 09/01/20 11:59 Aspirin (ASA) 81 mg DAILY ORAL 07/28/20 09:00 09/11/20 08:59 08/03/20 08:41 Atorvastatin Calcium (Lipitor) 80 mg BEDTIME ORAL 07/27/20 21:00 10/25/20 20:59 08/04/20 21:01 Clopidogrel Bisulfate (Plavix) 75 mg DAILY ORAL 07/28/20 09:00 08/27/20 08:59 08/03/20 08:41 Digoxin (Lanoxin) 0.125 mg DAILY@0600 ORAL 08/05/20 06:00 11/03/20 05:59 08/05/20 05:14 Enoxaparin Sodium (Lovenox) 40 mg DAILY SUBQ 08/04/20 09:00 11/02/20 08:59 Furosemide (Lasix) 40 mg DAILY IV 07/27/20 16:15 08/26/20 16:14 08/01/20 09:17 Hydralazine HCl (Apresoline) 20 mg Q6H PRN IV For High Blood Pressure 07/27/20 16:15 10/25/20 16:14 07/27/20 16:18 Losartan Potassium (Cozaar) 50 mg DAILY ORAL 08/04/20 09:00 08/26/20 20:59 Metoprolol Tartrate (Lopressor) 50 mg EVERY 6 HOURS ORAL 08/01/20 00:00 10/25/20 16:14 08/04/20 05:31 Nitroglycerin (Ntg) 0.4 mg Q5M PRN SL Prn Chest Pain 07/27/20 16:15 08/26/20 16:14 07/27/20 16:24 Ondansetron HCl (Zofran) 4 mg Q4H PRN IVP Nausea & Vomiting 07/27/20 22:45 08/26/20 22:44 07/27/20 22:59 Piperacillin Sod/ Tazobactam Sod 3.375 gm/Sodium Chloride 110 ml @ 27.5 mls/hr EVERY 8 HOURS IVPB 08/04/20 12:00 08/09/20 11:59 08/05/20 05:13 Thiamine HCl (Vitamin B1) 100 mg DAILY ORAL 07/28/20 09:00 08/27/20 08:59 08/04/20 09:51 Assessment/Plan Assessment/Plan 1. High D-dimer. - No evidence of pulmonary embolism on CTA chest -Lovenox 80 mg BID held due to thrombocytopenia -> now plt count normal and D-dimer lower -> will start Lovenox 40 mg QD - f/u D-dimer (08/03) trending down 2. s/p AICD. 3. CHF. 4. CAD. 5. Leukocytosis - ID following -On antibiotics - f/u BCx, UCx per ID 6. Hypokalemia 7. Thrombocytopenia; improved - heme following 8. COVID-19 negative - Ag neg (07/27) - PCR neg (07/28) Patient needs rate control with digoxin. Cardiology is following. Beta-anay has also been started. The patient has also received amiodarone. Continue medications. Diurese as needed. No indication for steroids. Continue supportive care and p.r.n. medications. The care of this patient was discussed with my supervising physician Time spent for this encounter was approximately 31 minutes James Fernandes Aug 05, 2020 09:30
[2020-08-05] MEDS: Aspirin Baby 81mg ORAL SCH (09:31)
[2020-08-05] MEDS: Thiamine 100mg tab ORAL SCH (09:31)
[2020-08-05 10:30] LABS: ANION GAP 8 mmol/L (5-15); BLOOD UREA NITROGEN 48 mg/dL (7-18); CALCIUM 8.6 MG/DL (8.5-10.1); CARBON DIOXIDE 25 MMOL/L (21-32); CHLORIDE 103 MMOL/L (98-107); POTASSIUM 3.5 MMOL/L (3.5-5.1); SODIUM 136 MMOL/L (136-145)
[2020-08-05 11:18] LABS: % IRON SATURATION 27 % (15-50); IRON 78 ug/dL (50-175); TOTAL IRON BINDING CAPACITY 294 ug/dL (250-450)
[2020-08-05 11:41] LABS: FERRITIN 172 NG/ML (8-388)
--- NOTE | 2020-08-05 11:56 | Surgery Progress Note ---
Surgery Progress Note Subjective Additional Comments leukocytosis anemia otherwise stable comfortable Objective Last 24 Hour Vital Signs Date Time Temp Pulse Resp B/P (MAP) Pulse Ox O2 Delivery O2 Flow Rate FiO2 08/05/20 09:00 98/52 08/05/20 08:00 97.8 100 20 98/52 (67) 100 08/05/20 05:14 98 08/05/20 05:13 98 109/67 08/05/20 03:58 97.8 99 16 109/67 (81) 95 08/05/20 03:30 98 08/05/20 00:36 56 103/50 08/05/20 00:00 98.5 107 16 103/50 (67) 95 08/04/20 23:28 107 08/04/20 20:22 Room Air 08/04/20 20:00 97.9 84 18 105/57 (73) 96 08/04/20 19:06 113 08/04/20 17:45 93 91/54 08/04/20 16:00 93 08/04/20 16:00 97.9 104 18 91/54 (66) 90 08/04/20 12:00 65 94/57 08/04/20 12:00 98 08/04/20 12:00 96.7 65 15 86/39 (55) 97 I&O Intake and Output 08/04/20 08/05/20 19:00 07:00 # Voids 4 3 # Bowel Movements 1 Cardiovascular: RSR Respiratory: decreased breath sounds Abdomen: soft, non-tender, present bowel sounds, non-distended Extremities: edema, no tenderness, no cyanosis Laboratory Tests Test 08/04/20 22:44 08/05/20 09:45 Urine Color Pale yellow Urine Appearance Clear Urine pH 5 (4.5-8.0) Urine Specific [place] 1.020 (1.005-1.035) Urine Protein 1+ (NEGATIVE) H Urine Glucose (UA) Negative (NEGATIVE) Urine Ketones Negative (NEGATIVE) Urine Blood Negative (NEGATIVE) Urine Nitrite Negative (NEGATIVE) Urine Bilirubin Negative (NEGATIVE) Urine Urobilinogen Normal MG/DL (0.0-1.0) Urine Leukocyte Esterase Negative (NEGATIVE) Urine RBC 0 /HPF (0 - 0) Urine WBC 0-2 /HPF (0 - 0) Urine Squamous Epithelial Cells Occasional /LPF Urine Uric Acid Crystals Moderate /LPF (NONE) H Urine Bacteria Occasional /HPF (NONE) Sodium Level 136 MMOL/L (136-145) Potassium Level 3.5 MMOL/L (3.5-5.1) Chloride Level 103 MMOL/L (98-107) Carbon Dioxide Level 25 MMOL/L (21-32) Anion Gap 8 mmol/L (5-15) Blood Urea Nitrogen 48 mg/dL (7-18) H Creatinine 1.0 MG/DL (0.55-1.30) Estimat Glomerular Filtration Rate > 60 mL/min (>60) Glucose Level 97 MG/DL (74-106) Calcium Level 8.6 MG/DL (8.5-10.1) Iron Level 78 ug/dL (50-175) Total Iron Binding Capacity 294 ug/dL (250-450) Percent Iron Saturation 27 % (15-50) Unsaturated Iron Binding 216 ug/dL (112-346) Ferritin 172 NG/ML (8-388) Folate 18.2 NG/ML (8.6-58.9) Plan Problems: (1) Cellulitis of lower extremity Assessment & Plan: Pt presented on admission with wound of unknown etiology R 1st metatarsal. Pt's hygiene is grossly neglected. To properly assess wound,pt's feet required extensive scrubbing to remove caked on dirt both feet. erythema and edema noted mild cellulitis Base of wound dorso/lateral R 1st metatarsalis darío with loose edges(L)2.3cm x (W)4cm. No exudate noted. NO erythema,swelling or changes in skin temp periwound. Second laceration noted to plantar-base of R 1st metatarsal(L)0.3cm x (W)1.2cm. Base of wound is darío. Edges are adherent to base of wound. No erythema swelling or changes in skin temp periwound. L foot 3rd and 4th metatarsals noted to have small ulcers that are dry . No surrounding erythema noted. Tx.Plan: Apply Betadine to dorsal and plantar wounds R 1st metatarsal. Cover with Gauze and wrap with Kerlix. Change every 3 days and prn. Swab ulcers dorsal L 3rd and 4th Metatarsals with Betadine Daily. Leave open to Air. turn q2h off load pressure nutritional optimization (2) Hypokalemia (3) Leukocytosis, unspecified (4) NSTEMI (non-ST elevated myocardial infarction) (5) Atrial fibrillation with RVR (6) Alcohol intoxication Dino Angelo Aug 05, 2020 11:56
[2020-08-05 12:00] VITALS: BP 100/61
--- NOTE | 2020-08-05 12:56 | Infectious Diseases Prog Note ---
Assessment/Plan Assessment/Plan A; 1. Pneumonia COVID-19 rapid & PCR : negative. 2. Non ST elevation Myocardial infarction. 3. Congestive heart failure. 4. Hypertension. 5. Atrial fibrillation 6. Leukocytosis PLAN: 1. Continue Zosyn 2. Will f/u cultures & CBC Subjective ROS Limited/Unobtainable: Yes Constitutional: Reports: no symptoms Respiratory: Reports: no symptoms Gastrointestinal/Abdominal: Reports: no symptoms Allergies: Coded Allergies: No Known Allergies (Unverified , 10/24/15) Objective Last 24 Hour Vital Signs Date Time Temp Pulse Resp B/P (MAP) Pulse Ox O2 Delivery O2 Flow Rate FiO2 08/05/20 09:00 98/52 08/05/20 08:00 97.8 100 20 98/52 (67) 100 08/05/20 08:00 101 08/05/20 05:14 98 08/05/20 05:13 98 109/67 08/05/20 03:58 97.8 99 16 109/67 (81) 95 08/05/20 03:30 98 08/05/20 00:36 56 103/50 08/05/20 00:00 98.5 107 16 103/50 (67) 95 08/04/20 23:28 107 08/04/20 20:22 Room Air 08/04/20 20:00 97.9 84 18 105/57 (73) 96 08/04/20 19:06 113 08/04/20 17:45 93 91/54 08/04/20 16:00 93 08/04/20 16:00 97.9 104 18 91/54 (66) 90 Height (Feet): 5 Height (Inches): 7.00 Weight (Pounds): 185 General Appearance: no acute distress HEENT: mucous membranes moist Respiratory/Chest: lungs clear Cardiovascular: normal rate Abdomen: soft, non tender Extremities: no edema Neurologic/Psychiatric: alert, responsive Laboratory Tests Test 08/04/20 22:44 08/05/20 09:45 Urine Color Pale yellow Urine Appearance Clear Urine pH 5 (4.5-8.0) Urine Specific [place] 1.020 (1.005-1.035) Urine Protein 1+ (NEGATIVE) H Urine Glucose (UA) Negative (NEGATIVE) Urine Ketones Negative (NEGATIVE) Urine Blood Negative (NEGATIVE) Urine Nitrite Negative (NEGATIVE) Urine Bilirubin Negative (NEGATIVE) Urine Urobilinogen Normal MG/DL (0.0-1.0) Urine Leukocyte Esterase Negative (NEGATIVE) Urine RBC 0 /HPF (0 - 0) Urine WBC 0-2 /HPF (0 - 0) Urine Squamous Epithelial Cells Occasional /LPF Urine Uric Acid Crystals Moderate /LPF (NONE) H Urine Bacteria Occasional /HPF (NONE) Sodium Level 136 MMOL/L (136-145) Potassium Level 3.5 MMOL/L (3.5-5.1) Chloride Level 103 MMOL/L (98-107) Carbon Dioxide Level 25 MMOL/L (21-32) Anion Gap 8 mmol/L (5-15) Blood Urea Nitrogen 48 mg/dL (7-18) H Creatinine 1.0 MG/DL (0.55-1.30) Estimat Glomerular Filtration Rate > 60 mL/min (>60) Glucose Level 97 MG/DL (74-106) Calcium Level 8.6 MG/DL (8.5-10.1) Iron Level 78 ug/dL (50-175) Total Iron Binding Capacity 294 ug/dL (250-450) Percent Iron Saturation 27 % (15-50) Unsaturated Iron Binding 216 ug/dL (112-346) Ferritin 172 NG/ML (8-388) Folate 18.2 NG/ML (8.6-58.9) Current Medications Medications (Trade) Dose Ordered Sig/Evan Route PRN Reason Start Time Stop Time Status Last Admin Dose Admin Acetaminophen (Tylenol) 650 mg Q4H PRN ORAL Mild Pain (Pain Scale 1-3) 07/27/20 13:30 08/26/20 13:29 08/03/20 15:34 Acetaminophen (Tylenol) 650 mg Q6H PRN ORAL Temp >100.5 08/02/20 12:00 09/01/20 11:59 Aspirin (ASA) 81 mg DAILY ORAL 07/28/20 09:00 09/11/20 08:59 08/05/20 09:31 Atorvastatin Calcium (Lipitor) 80 mg BEDTIME ORAL 07/27/20 21:00 10/25/20 20:59 08/04/20 21:01 Clopidogrel Bisulfate (Plavix) 75 mg DAILY ORAL 07/28/20 09:00 08/27/20 08:59 08/05/20 09:31 Digoxin (Lanoxin) 0.125 mg DAILY@0600 ORAL 08/05/20 06:00 11/03/20 05:59 08/05/20 05:14 Enoxaparin Sodium (Lovenox) 40 mg DAILY SUBQ 08/04/20 09:00 11/02/20 08:59 08/05/20 09:30 Furosemide (Lasix) 40 mg DAILY IV 07/27/20 16:15 08/26/20 16:14 08/05/20 09:31 Hydralazine HCl (Apresoline) 20 mg Q6H PRN IV For High Blood Pressure 07/27/20 16:15 10/25/20 16:14 07/27/20 16:18 Losartan Potassium (Cozaar) 50 mg DAILY ORAL 08/04/20 09:00 08/26/20 20:59 Metoprolol Tartrate (Lopressor) 50 mg EVERY 6 HOURS ORAL 08/01/20 00:00 10/25/20 16:14 08/04/20 05:31 Nitroglycerin (Ntg) 0.4 mg Q5M PRN SL Prn Chest Pain 07/27/20 16:15 08/26/20 16:14 07/27/20 16:24 Ondansetron HCl (Zofran) 4 mg Q4H PRN IVP Nausea & Vomiting 07/27/20 22:45 08/26/20 22:44 07/27/20 22:59 Piperacillin Sod/ Tazobactam Sod 3.375 gm/Sodium Chloride 110 ml @ 27.5 mls/hr EVERY 8 HOURS IVPB 08/04/20 12:00 08/09/20 11:59 08/05/20 05:13 Thiamine HCl (Vitamin B1) 100 mg DAILY ORAL 07/28/20 09:00 08/27/20 08:59 08/05/20 09:31 Patric Cleary MD Aug 05, 2020 12:56
[2020-08-05 16:00] VITALS: BP 123/69
[2020-08-05] MEDS ORDERED: NS 275ml ONE (17:23)
[2020-08-05] MEDS ORDERED: Tubing IV Secondary IV ONE (17:23)
--- NOTE | 2020-08-05 17:48 | General Progress Note ---
Subjective Allergies: Coded Allergies: No Known Allergies (Unverified , 10/24/15) Subjective fever last night more awake hypotensive but asymptomatic sob better Objective Last 24 Hour Vital Signs Date Time Temp Pulse Resp B/P (MAP) Pulse Ox O2 Delivery O2 Flow Rate FiO2 08/05/20 17:34 97 123/69 08/05/20 16:00 98.6 97 18 123/69 (87) 94 08/05/20 12:00 97.7 86 18 100/61 (74) 98 08/05/20 12:00 86 100/61 08/05/20 12:00 93 08/05/20 09:00 Room Air 08/05/20 09:00 98/52 08/05/20 08:00 97.8 100 20 98/52 (67) 100 08/05/20 08:00 101 08/05/20 05:14 98 08/05/20 05:13 98 109/67 08/05/20 03:58 97.8 99 16 109/67 (81) 95 08/05/20 03:30 98 08/05/20 00:36 56 103/50 08/05/20 00:00 98.5 107 16 103/50 (67) 95 08/04/20 23:28 107 08/04/20 20:22 Room Air 08/04/20 20:00 97.9 84 18 105/57 (73) 96 08/04/20 19:06 113 Intake and Output 08/04/20 08/05/20 19:00 07:00 # Voids 4 3 # Bowel Movements 1 Laboratory Tests 08/04/20 22:44: Urine Color Pale yellow, Urine Appearance Clear, Urine pH 5, Urine Specific [place] 1.020, Urine Protein 1+H, Urine Glucose (UA) Negative, Urine Ketones Negative, Urine Blood Negative, Urine Nitrite Negative, Urine Bilirubin Negative, Urine Urobilinogen Normal, Urine Leukocyte Esterase Negative, Urine RBC 0, Urine WBC 0-2, Urine Squamous Epithelial Cells Occasional, Urine Uric Acid Crystals ModerateH, Urine Bacteria Occasional 08/05/20 09:45: Sodium Level 136, Potassium Level 3.5, Chloride Level 103, Carbon Dioxide Level 25, Anion Gap 8, Blood Urea Nitrogen 48H, Creatinine 1.0, Estimat Glomerular Filtration Rate > 60, Glucose Level 97, Calcium Level 8.6, Iron Level 78, Total Iron Binding Capacity 294, Percent Iron Saturation 27, Unsaturated Iron Binding 216, Ferritin 172, Folate 18.2 Height (Feet): 5 Height (Inches): 7.00 Weight (Pounds): 185 General Appearance: alert EENT: PERRL/EOMI Neck: supple Cardiovascular: regular rhythm Respiratory/Chest: lungs clear Abdomen: non tender, soft Assessment/Plan Status: stable Assessment/Plan: hypotension asymptomatic monitor , hold all bp meds sob better afib pna chf etoh abused pna hypokalemia kcl replacement iv abx iv sterids librium cont o2 pumonary tx id consult pulmonary on consult dw charge nurse Kadeem Luis MD Aug 05, 2020 17:48
[2020-08-05 19:45] VITALS: BP 114/66
--- NOTE | 2020-08-05 21:00 | NUR ---
NURSE NOTES: Assumed pt's care at 1900 from TITA Lin. Pt is alert & verbal, slovak speaking. Denies any pain, respirations even and unlabored, satting 94-95% on room air. Pt is able to verbalize needs. COnt IV ABT zosyn with no adv reactions, po fluids enocuraged. Tele monitor remains in function. Safety and comfort measures maintained, call light within reach., bed in low position.
[2020-08-05] MEDS: Atorvastatin 80mg tab ORAL SCH (21:35)
[2020-08-06 00:15] VITALS: BP 118/68
[2020-08-06 04:20] VITALS: BP 108/54
[2020-08-06] MEDS: Piperacillin/Tazobactam 3.375 GM in NS 110 ML IVPB SCH ×2 (06:17→14:05)
[2020-08-06] MEDS: Digoxin 0.125mg tab ORAL SCH (06:21)
[2020-08-06 06:43] LABS: HEMATOCRIT 21.9 % (42.0-52.0); HEMOGLOBIN 7.2 G/DL (14.2-18.0); MEAN CORPUSCULAR VOLUME 95 FL (80-99); PLATELET COUNT 202 K/UL (150-450); RED CELL DISTRIBUTION WIDTH 13.7 % (11.6-14.8); WHITE BLOOD COUNT 12.4 K/UL (4.8-10.8)
[2020-08-06 06:54] LABS: ANION GAP 5 mmol/L (5-15); BLOOD UREA NITROGEN 22 mg/dL (7-18); CALCIUM 8.1 MG/DL (8.5-10.1); CARBON DIOXIDE 29 MMOL/L (21-32); CHLORIDE 106 MMOL/L (98-107); CREATININE 0.8 MG/DL (0.55-1.30); POTASSIUM 3.5 MMOL/L (3.5-5.1); SODIUM 140 MMOL/L (136-145)
--- NOTE | 2020-08-06 07:35 | NUR ---
NURSE HAND-OFF REPORT: Important Events on Shift: Remains stable, tele monitor in placed. Patient Status: Diet: Pending Orders: Pending Results/Labs: Pending MD notification: Latest Vital Signs: Temperature 98.6 , Pulse 90 , B/P 113 /62 , Respiratory Rate 20 , O2 SAT 96 , Nasal Cannula, O2 Flow Rate 2.0 . Vital Sign Comment: EKG Rhythm: Sinus Rhythm Rhythm change?: N MD Notified?: Evin Dexter MD Response: Latest Ryan Fall Score: 45 Fall Risk: High Risk Safety Measures: Call light Within Reach, Bed Alarm Zone 1, Side Rails Side Rails x3, Bed position Low and Locked. Fall Precautions: Yellow Socks Report given to .
[2020-08-06 08:00] VITALS: BP 120/71
--- NOTE | 2020-08-06 08:00 | NUR ---
complete bath and linen change provided
--- NOTE | 2020-08-06 09:00 | Hematology/Onc Progress Note ---
Assessment/Plan Assessment/Plan # Anemia r/o iron deficiency, r/o gi bleed --> occult blood and anemia panel ordered --> consider gi eval --> lovenox currently given --> started iv iron --> consider gi eval # Elevated ddimer - with a history of recent pna --> Cta is neg for pe --> consider repeat ddimer as needed --> on lovenox per cards --> ABx zosyn # Thrombocytopenia in the setting of alcohol abuse --> plt 50-->157-->200 --> transfuse prn --> monitor for bleeding --> smear is noted # NSTEMI with troponin elevation --> ASA, Plavix, and Lovenox # Hypercoagulable disorder -- Afib with RVR --> Bb and digoxin for rate and rhythm control --> per cards # Multifocal PNA and respiratory failure - improved, was on NRB now NC --> neg testing for covid --> iso as needed --> abx # CHF acute on chronic systolic on diastolic HF, reduced EF 40%, s/p AICD # HTN and hypertensive urgency # Hx of substance abuse # Psychiatric disorder and homelessness # N/V # Cellulitis of lower extremity # Dvt ppx lovenox sq Appreciate consultation and mariela Rn Subjective Constitutional: Denies: no symptoms, chills, fever, malaise, weakness, other Gastrointestinal/Abdominal: Denies: no symptoms, abdomen distended, abdominal pain, black stools, tarry stools, blood in stool, constipated, diarrhea, difficulty swallowing, nausea, poor appetite, poor fluid intake, rectal bleeding, vomiting, other Genitourinary: Denies: no symptoms, burning, discharge, frequency, flank pain, hematuria, incontinence, pain, urgency, other Neurologic/Psychiatric: Denies: no symptoms, anxiety, depressed, emotional problems, headache, numbness, paresthesia, pre-existing deficit, seizure, tingling, tremors, weakness, other Endocrine: Denies: no symptoms, excessive sweating, flushing, intolerance to cold, intolerance to heat, increased hunger, increased thirst, increased urine, unexplained weight gain, unexplained weight loss, other Hematologic/Lymphatic: Denies: no symptoms, anemia, easy bleeding, easy br uising, adenopathy, other Allergies: Coded Allergies: No Known Allergies (Unverified , 10/24/15) Subjective 08/02 meds reviewed, plts have markedly improved from 55 to above 150 08/03 labs reviewed, meds noted, no bleeding, mariela rn, no hemolysis 08/04 no cp, no bleeding, tachy, no night sweats, meds noted 08/05 tired this am, wbc 25, hgb 8.2, pending cbc and anemia panel 08/05 labs reviewed, wbc better but h/h dropping, per gi Objective Objective Current Medications Medications (Trade) Dose Ordered Sig/Evan Route PRN Reason Start Time Stop Time Status Last Admin Dose Admin Acetaminophen (Tylenol) 650 mg Q4H PRN ORAL Mild Pain (Pain Scale 1-3) 07/27/20 13:30 08/26/20 13:29 08/03/20 15:34 Acetaminophen (Tylenol) 650 mg Q6H PRN ORAL Temp >100.5 08/02/20 12:00 09/01/20 11:59 Aspirin (ASA) 81 mg DAILY ORAL 07/28/20 09:00 09/11/20 08:59 08/05/20 09:31 Atorvastatin Calcium (Lipitor) 80 mg BEDTIME ORAL 07/27/20 21:00 10/25/20 20:59 08/05/20 21:35 Clopidogrel Bisulfate (Plavix) 75 mg DAILY ORAL 07/28/20 09:00 08/27/20 08:59 08/05/20 09:31 Digoxin (Lanoxin) 0.125 mg DAILY@0600 ORAL 08/05/20 06:00 11/03/20 05:59 08/06/20 06:21 Enoxaparin Sodium (Lovenox) 40 mg DAILY SUBQ 08/04/20 09:00 11/02/20 08:59 08/05/20 09:30 Furosemide (Lasix) 40 mg DAILY IV 07/27/20 16:15 08/26/20 16:14 08/05/20 09:31 Hydralazine HCl (Apresoline) 20 mg Q6H PRN IV For High Blood Pressure 07/27/20 16:15 10/25/20 16:14 07/27/20 16:18 Losartan Potassium (Cozaar) 50 mg DAILY ORAL 08/04/20 09:00 08/26/20 20:59 Metoprolol Tartrate (Lopressor) 50 mg EVERY 6 HOURS ORAL 08/01/20 00:00 10/25/20 16:14 08/06/20 06:21 Nitroglycerin (Ntg) 0.4 mg Q5M PRN SL Prn Chest Pain 07/27/20 16:15 08/26/20 16:14 07/27/20 16:24 Ondansetron HCl (Zofran) 4 mg Q4H PRN IVP Nausea & Vomiting 07/27/20 22:45 08/26/20 22:44 07/27/20 22:59 Piperacillin Sod/ Tazobactam Sod 3.375 gm/Sodium Chloride 110 ml @ 27.5 mls/hr EVERY 8 HOURS IVPB 08/04/20 12:00 08/09/20 11:59 08/06/20 06:17 Thiamine HCl (Vitamin B1) 100 mg DAILY ORAL 07/28/20 09:00 08/27/20 08:59 08/05/20 09:31 Last 24 Hour Vital Signs Date Time Temp Pulse Resp B/P (MAP) Pulse Ox O2 Delivery O2 Flow Rate FiO2 08/06/20 08:00 98.0 80 16 120/71 (87) 94 08/06/20 06:21 90 08/06/20 06:21 90 113/62 08/06/20 04:20 98.6 54 20 108/54 (72) 96 08/06/20 04:15 62 08/06/20 00:33 95 118/68 08/06/20 00:30 85 08/06/20 00:15 97.2 95 17 118/68 (85) 95 08/05/20 21:00 Room Air 08/05/20 20:00 83 08/05/20 19:45 98.0 77 17 114/66 (82) 96 08/05/20 17:34 97 123/69 08/05/20 16:00 105 08/05/20 16:00 98.6 97 18 123/69 (87) 94 08/05/20 12:00 97.7 86 18 100/61 (74) 98 08/05/20 12:00 86 100/61 08/05/20 12:00 93 08/05/20 09:00 Room Air 08/05/20 09:00 98/52 08/05/20 08:00 97.8 100 20 98/52 (67) 100 08/05/20 08:00 101 08/05/20 05:14 98 08/05/20 05:13 98 109/67 08/05/20 03:58 97.8 99 16 109/67 (81) 95 08/05/20 03:30 98 08/05/20 00:36 56 103/50 08/05/20 00:00 98.5 107 16 103/50 (67) 95 08/04/20 23:28 107 08/04/20 20:22 Room Air 08/04/20 20:00 97.9 84 18 105/57 (73) 96 08/04/20 19:06 113 08/04/20 17:45 93 91/54 08/04/20 16:00 93 08/04/20 16:00 97.9 104 18 91/54 (66) 90 08/04/20 12:00 65 94/57 08/04/20 12:00 98 08/04/20 12:00 96.7 65 15 86/39 (55) 97 08/04/20 09:00 Room Air 08/04/20 09:00 84/50 Intake and Output 08/05/20 08/06/20 19:00 07:00 Intake Total 840 ml 500 ml Output Total 400 ml Balance 440 ml 500 ml Intake Oral 840 ml 500 ml Output Urine Total 400 ml Labs Test 08/04/20 08:30 08/04/20 22:44 08/05/20 09:45 08/06/20 05:10 White Blood Count 24.2 K/UL (4.8-10.8) 12.4 K/UL (4.8-10.8) Red Blood Count 2.61 M/UL (4.70-6.10) 2.30 M/UL (4.70-6.10) Hemoglobin 8.2 G/DL (14.2-18.0) 7.2 G/DL (14.2-18.0) Hematocrit 24.0 % (42.0-52.0) 21.9 % (42.0-52.0) Mean Corpuscular Volume 92 FL (80-99) 95 FL (80-99) Mean Corpuscular Hemoglobin 31.3 PG (27.0-31.0) 31.4 PG (27.0-31.0) Mean Corpuscular Hemoglobin Concent 34.0 G/DL (32.0-36.0) 33.0 G/DL (32.0-36.0) Red Cell Distribution Width 13.7 % (11.6-14.8) 13.7 % (11.6-14.8) Platelet Count 200 K/UL (150-450) 202 K/UL (150-450) Mean Platelet Volume 8.9 FL (6.5-10.1) 8.4 FL (6.5-10.1) Neutrophils (%) (Auto) % (45.0-75.0) % (45.0-75.0) Lymphocytes (%) (Auto) % (20.0-45.0) % (20.0-45.0) Monocytes (%) (Auto) % (1.0-10.0) % (1.0-10.0) Eosinophils (%) (Auto) % (0.0-3.0) % (0.0-3.0) Basophils (%) (Auto) % (0.0-2.0) % (0.0-2.0) Differential Total Cells Counted 100 Neutrophils % (Manual) 80 % (45-75) Lymphocytes % (Manual) 7 % (20-45) Monocytes % (Manual) 13 % (1-10) Eosinophils % (Manual) 0 % (0-3) Basophils % (Manual) 0 % (0-2) Band Neutrophils 0 % (0-8) Platelet Estimate Adequate Platelet Morphology Normal Hypochromasia 1+ Digoxin Level 1.0 NG/ML (0.5-2.0) Urine Color Pale yellow Urine Appearance Clear Urine pH 5 (4.5-8.0) Urine Specific [place] 1.020 (1.005-1.035) Urine Protein 1+ (NEGATIVE) Urine Glucose (UA) Negative (NEGATIVE) Urine Ketones Negative (NEGATIVE) Urine Blood Negative (NEGATIVE) Urine Nitrite Negative (NEGATIVE) Urine Bilirubin Negative (NEGATIVE) Urine Urobilinogen Normal MG/DL (0.0-1.0) Urine Leukocyte Esterase Negative (NEGATIVE) Urine RBC 0 /HPF (0 - 0) Urine WBC 0-2 /HPF (0 - 0) Urine Squamous Epithelial Cells Occasional /LPF Urine Uric Acid Crystals Moderate /LPF (NONE) Urine Bacteria Occasional /HPF (NONE) Sodium Level 136 MMOL/L (136-145) 140 MMOL/L (136-145) Potassium Level 3.5 MMOL/L (3.5-5.1) 3.5 MMOL/L (3.5-5.1) Chloride Level 103 MMOL/L (98-107) 106 MMOL/L (98-107) Carbon Dioxide Level 25 MMOL/L (21-32) 29 MMOL/L (21-32) Anion Gap 8 mmol/L (5-15) 5 mmol/L (5-15) Blood Urea Nitrogen 48 mg/dL (7-18) 22 mg/dL (7-18) Creatinine 1.0 MG/DL (0.55-1.30) 0.8 MG/DL (0.55-1.30) Estimat Glomerular Filtration Rate > 60 mL/min (>60) > 60 mL/min (>60) Glucose Level 97 MG/DL (74-106) 92 MG/DL (74-106) Calcium Level 8.6 MG/DL (8.5-10.1) 8.1 MG/DL (8.5-10.1) Iron Level 78 ug/dL (50-175) Total Iron Binding Capacity 294 ug/dL (250-450) Percent Iron Saturation 27 % (15-50) Unsaturated Iron Binding 216 ug/dL (112-346) Ferritin 172 NG/ML (8-388) Folate 18.2 NG/ML (8.6-58.9) Height (Feet): 5 Height (Inches): 7.00 Weight (Pounds): 185 Objective Gen: Nad Pulm: Ctab, no cwr CV: Rrr, no mgr Abd: soft, nd, nt Ext: no cce Heath Matos MD Aug 06, 2020 09:00
[2020-08-06] MEDS: Losartan 50mg tab ORAL SCH (09:10)
[2020-08-06] MEDS: Thiamine 100mg tab ORAL SCH (09:10)
[2020-08-06] MEDS: Aspirin Baby 81mg ORAL SCH (09:10)
--- NOTE | 2020-08-06 10:17 | Pulmonology Progress Note ---
Subjective ROS Limited/Unobtainable: Yes Interval Events: None new reported Constitutional: Reports: no symptoms HEENT: Repors: no symptoms Respiratory: Reports: shortness of breath Cardiovascular: Reports: no symptoms Gastrointestinal/Abdominal: Reports: no symptoms Genitourinary: Reports: no symptoms Musculoskeletal: Denies: pain Allergies: Coded Allergies: No Known Allergies (Unverified , 10/24/15) All Systems: reviewed and negative except above Objective Last 24 Hour Vital Signs Date Time Temp Pulse Resp B/P (MAP) Pulse Ox O2 Delivery O2 Flow Rate FiO2 08/06/20 09:10 120/71 08/06/20 08:00 98.0 80 16 120/71 (87) 94 08/06/20 06:21 90 08/06/20 06:21 90 113/62 08/06/20 04:20 98.6 54 20 108/54 (72) 96 08/06/20 04:15 62 08/06/20 00:33 95 118/68 08/06/20 00:30 85 08/06/20 00:15 97.2 95 17 118/68 (85) 95 08/05/20 21:00 Room Air 08/05/20 20:00 83 08/05/20 19:45 98.0 77 17 114/66 (82) 96 08/05/20 17:34 97 123/69 08/05/20 16:00 105 08/05/20 16:00 98.6 97 18 123/69 (87) 94 08/05/20 12:00 97.7 86 18 100/61 (74) 98 08/05/20 12:00 86 100/61 08/05/20 12:00 93 Intake and Output 08/05/20 08/06/20 19:00 07:00 Intake Total 840 ml 500 ml Output Total 400 ml Balance 440 ml 500 ml Intake Oral 840 ml 500 ml Output Urine Total 400 ml General Appearance: no acute distress HEENT: atraumatic Respiratory: crackles/rales Cardiovascular: normal rate, regular rhythm Abdomen: soft, non tender Microbiology Date/Time Source Procedure Growth Status 08/04/20 13:05 Blood Blood Culture - Preliminary NO GROWTH AFTER 24 HOURS Resulted Laboratory Tests 08/06/20 05:10: White Blood Count 12.4H, Red Blood Count 2.30L, Hemoglobin 7.2L, Hematocrit 21.9L, Mean Corpuscular Volume 95, Mean Corpuscular Hemoglobin 31.4H, Mean Corpuscular Hemoglobin Concent 33.0, Red Cell Distribution Width 13.7, Platelet Count 202, Mean Platelet Volume 8.4, Neutrophils (%) (Auto) , Lymphocytes (%) (Auto) , Monocytes (%) (Auto) , Eosinophils (%) (Auto) , Basophils (%) (Auto) , Neutrophils % (Manual) [Pending], Lymphocytes % (Manual) [Pending], Platelet Estimate [Pending], Platelet Morphology [Pending], Sodium Level 140, Potassium Level 3.5, Chloride Level 106, Carbon Dioxide Level 29, Anion Gap 5, Blood Urea Nitrogen 22H, Creatinine 0.8, Estimat Glomerular Filtration Rate > 60, Glucose Level 92, Calcium Level 8.1L Current Medications Medications (Trade) Dose Ordered Sig/Evan Route PRN Reason Start Time Stop Time Status Last Admin Dose Admin Acetaminophen (Tylenol) 650 mg Q4H PRN ORAL Mild Pain (Pain Scale 1-3) 07/27/20 13:30 08/26/20 13:29 08/03/20 15:34 Acetaminophen (Tylenol) 650 mg Q6H PRN ORAL Temp >100.5 08/02/20 12:00 09/01/20 11:59 Aspirin (ASA) 81 mg DAILY ORAL 07/28/20 09:00 09/11/20 08:59 08/06/20 09:10 Atorvastatin Calcium (Lipitor) 80 mg BEDTIME ORAL 07/27/20 21:00 10/25/20 20:59 08/05/20 21:35 Clopidogrel Bisulfate (Plavix) 75 mg DAILY ORAL 07/28/20 09:00 08/27/20 08:59 08/06/20 09:10 Digoxin (Lanoxin) 0.125 mg DAILY@0600 ORAL 08/05/20 06:00 11/03/20 05:59 08/06/20 06:21 Furosemide (Lasix) 40 mg DAILY IV 07/27/20 16:15 08/26/20 16:14 08/06/20 09:10 Hydralazine HCl (Apresoline) 20 mg Q6H PRN IV For High Blood Pressure 07/27/20 16:15 10/25/20 16:14 07/27/20 16:18 Iron Sucrose 100 mg/Sodium Chloride 60 ml @ 240 mls/hr BEDTIME IVPB 08/06/20 21:00 08/10/20 21:14 Losartan Potassium (Cozaar) 50 mg DAILY ORAL 08/04/20 09:00 08/26/20 20:59 08/06/20 09:10 Metoprolol Tartrate (Lopressor) 50 mg EVERY 6 HOURS ORAL 08/01/20 00:00 10/25/20 16:14 08/06/20 06:21 Nitroglycerin (Ntg) 0.4 mg Q5M PRN SL Prn Chest Pain 07/27/20 16:15 08/26/20 16:14 07/27/20 16:24 Ondansetron HCl (Zofran) 4 mg Q4H PRN IVP Nausea & Vomiting 07/27/20 22:45 08/26/20 22:44 07/27/20 22:59 Piperacillin Sod/ Tazobactam Sod 3.375 gm/Sodium Chloride 110 ml @ 27.5 mls/hr EVERY 8 HOURS IVPB 08/04/20 12:00 08/09/20 11:59 08/06/20 06:17 Thiamine HCl (Vitamin B1) 100 mg DAILY ORAL 07/28/20 09:00 08/27/20 08:59 08/06/20 09:10 Assessment/Plan Assessment/Plan 1. High D-dimer. - No evidence of pulmonary embolism on CTA chest - f/u D-dimer (08/03) trending down 2. s/p AICD. 3. CHF. 4. CAD. 5. Leukocytosis; improving - ID following -On antibiotics - f/u BCx negative - f/u UCx pending 6. Hypokalemia, resolved 7. Thrombocytopenia; improved - heme following 8. COVID-19 negative - Ag neg (07/27) - PCR neg (07/28) Patient needs rate control with digoxin. Cardiology is following. Beta-anay has also been started. The patient has also received amiodarone. Continue medications. Diurese as needed. No indication for steroids. Continue supportive care and p.r.n. medications. The care of this patient was discussed with my supervising physician Time spent for this encounter was approximately 31 minutes James Fernandes Aug 06, 2020 10:17
--- NOTE | 2020-08-06 10:18 | Infectious Diseases Prog Note ---
Assessment/Plan Assessment/Plan antibiotics : zosyn A 1. pneumonia covid 19 test negative 2. hypertension 3. CHF 4. fever resolved 5, leucocytosis improving P 1. continue zosyn 4 more days 2. will follow up cultures Subjective Constitutional: Denies: fever, chills Respiratory: Denies: shortness of breath, dry cough Gastrointestinal/Abdominal: Denies: nausea, vomiting, diarrhea Musculoskeletal: Denies: pain Allergies: Coded Allergies: No Known Allergies (Unverified , 10/24/15) Objective Last 24 Hour Vital Signs Date Time Temp Pulse Resp B/P (MAP) Pulse Ox O2 Delivery O2 Flow Rate FiO2 08/06/20 09:10 120/71 08/06/20 08:00 98.0 80 16 120/71 (87) 94 08/06/20 06:21 90 08/06/20 06:21 90 113/62 08/06/20 04:20 98.6 54 20 108/54 (72) 96 08/06/20 04:15 62 08/06/20 00:33 95 118/68 08/06/20 00:30 85 08/06/20 00:15 97.2 95 17 118/68 (85) 95 08/05/20 21:00 Room Air 08/05/20 20:00 83 08/05/20 19:45 98.0 77 17 114/66 (82) 96 08/05/20 17:34 97 123/69 08/05/20 16:00 105 08/05/20 16:00 98.6 97 18 123/69 (87) 94 08/05/20 12:00 97.7 86 18 100/61 (74) 98 08/05/20 12:00 86 100/61 08/05/20 12:00 93 Height (Feet): 5 Height (Inches): 7.00 Weight (Pounds): 185 Respiratory/Chest: lungs clear Cardiovascular: normal rate, regular rhythm, no gallop/murmur Abdomen: soft, non tender Extremities: no edema Microbiology Date/Time Source Procedure Growth Status 08/04/20 13:05 Blood Blood Culture - Preliminary NO GROWTH AFTER 24 HOURS Resulted Laboratory Tests Test 08/06/20 05:10 White Blood Count 12.4 K/UL (4.8-10.8) H Red Blood Count 2.30 M/UL (4.70-6.10) L Hemoglobin 7.2 G/DL (14.2-18.0) L Hematocrit 21.9 % (42.0-52.0) L Mean Corpuscular Volume 95 FL (80-99) Mean Corpuscular Hemoglobin 31.4 PG (27.0-31.0) H Mean Corpuscular Hemoglobin Concent 33.0 G/DL (32.0-36.0) Red Cell Distribution Width 13.7 % (11.6-14.8) Platelet Count 202 K/UL (150-450) Mean Platelet Volume 8.4 FL (6.5-10.1) Neutrophils (%) (Auto) % (45.0-75.0) Lymphocytes (%) (Auto) % (20.0-45.0) Monocytes (%) (Auto) % (1.0-10.0) Eosinophils (%) (Auto) % (0.0-3.0) Basophils (%) (Auto) % (0.0-2.0) Neutrophils % (Manual) Pending Lymphocytes % (Manual) Pending Platelet Estimate Pending Platelet Morphology Pending Sodium Level 140 MMOL/L (136-145) Potassium Level 3.5 MMOL/L (3.5-5.1) Chloride Level 106 MMOL/L (98-107) Carbon Dioxide Level 29 MMOL/L (21-32) Anion Gap 5 mmol/L (5-15) Blood Urea Nitrogen 22 mg/dL (7-18) H Creatinine 0.8 MG/DL (0.55-1.30) Estimat Glomerular Filtration Rate > 60 mL/min (>60) Glucose Level 92 MG/DL (74-106) Calcium Level 8.1 MG/DL (8.5-10.1) L Current Medications Medications (Trade) Dose Ordered Sig/Evan Route PRN Reason Start Time Stop Time Status Last Admin Dose Admin Acetaminophen (Tylenol) 650 mg Q4H PRN ORAL Mild Pain (Pain Scale 1-3) 07/27/20 13:30 08/26/20 13:29 08/03/20 15:34 Acetaminophen (Tylenol) 650 mg Q6H PRN ORAL Temp >100.5 08/02/20 12:00 09/01/20 11:59 Aspirin (ASA) 81 mg DAILY ORAL 07/28/20 09:00 09/11/20 08:59 08/06/20 09:10 Atorvastatin Calcium (Lipitor) 80 mg BEDTIME ORAL 07/27/20 21:00 10/25/20 20:59 08/05/20 21:35 Clopidogrel Bisulfate (Plavix) 75 mg DAILY ORAL 07/28/20 09:00 08/27/20 08:59 08/06/20 09:10 Digoxin (Lanoxin) 0.125 mg DAILY@0600 ORAL 08/05/20 06:00 11/03/20 05:59 08/06/20 06:21 Furosemide (Lasix) 40 mg DAILY IV 07/27/20 16:15 08/26/20 16:14 08/06/20 09:10 Hydralazine HCl (Apresoline) 20 mg Q6H PRN IV For High Blood Pressure 07/27/20 16:15 10/25/20 16:14 07/27/20 16:18 Iron Sucrose 100 mg/Sodium Chloride 60 ml @ 240 mls/hr BEDTIME IVPB 08/06/20 21:00 08/10/20 21:14 Losartan Potassium (Cozaar) 50 mg DAILY ORAL 08/04/20 09:00 08/26/20 20:59 08/06/20 09:10 Metoprolol Tartrate (Lopressor) 50 mg EVERY 6 HOURS ORAL 08/01/20 00:00 10/25/20 16:14 08/06/20 06:21 Nitroglycerin (Ntg) 0.4 mg Q5M PRN SL Prn Chest Pain 07/27/20 16:15 08/26/20 16:14 07/27/20 16:24 Ondansetron HCl (Zofran) 4 mg Q4H PRN IVP Nausea & Vomiting 07/27/20 22:45 08/26/20 22:44 07/27/20 22:59 Piperacillin Sod/ Tazobactam Sod 3.375 gm/Sodium Chloride 110 ml @ 27.5 mls/hr EVERY 8 HOURS IVPB 08/04/20 12:00 08/09/20 11:59 08/06/20 06:17 Thiamine HCl (Vitamin B1) 100 mg DAILY ORAL 07/28/20 09:00 08/27/20 08:59 08/06/20 09:10 Tuan Guajardo MD Aug 06, 2020 10:18
--- NOTE | 2020-08-06 11:19 | Surgery Progress Note ---
Surgery Progress Note Subjective Symptoms: improved, pain absent, tolerating diet, voiding well, passing flatus, BM Objective Last 24 Hour Vital Signs Date Time Temp Pulse Resp B/P (MAP) Pulse Ox O2 Delivery O2 Flow Rate FiO2 08/06/20 09:10 120/71 08/06/20 08:00 98.0 80 16 120/71 (87) 94 08/06/20 06:21 90 08/06/20 06:21 90 113/62 08/06/20 04:20 98.6 54 20 108/54 (72) 96 08/06/20 04:15 62 08/06/20 00:33 95 118/68 08/06/20 00:30 85 08/06/20 00:15 97.2 95 17 118/68 (85) 95 08/05/20 21:00 Room Air 08/05/20 20:00 83 08/05/20 19:45 98.0 77 17 114/66 (82) 96 08/05/20 17:34 97 123/69 08/05/20 16:00 105 08/05/20 16:00 98.6 97 18 123/69 (87) 94 08/05/20 12:00 97.7 86 18 100/61 (74) 98 08/05/20 12:00 86 100/61 08/05/20 12:00 93 I&O Intake and Output 08/05/20 08/06/20 19:00 07:00 Intake Total 840 ml 500 ml Output Total 400 ml Balance 440 ml 500 ml Intake Oral 840 ml 500 ml Output Urine Total 400 ml Dressing: saturated Cardiovascular: RSR Respiratory: clear, decreased breath sounds Abdomen: soft, non-tender, present bowel sounds, non-distended Extremities: no edema, no tenderness, no cyanosis Laboratory Tests Test 08/06/20 05:10 White Blood Count 12.4 K/UL (4.8-10.8) H Red Blood Count 2.30 M/UL (4.70-6.10) L Hemoglobin 7.2 G/DL (14.2-18.0) L Hematocrit 21.9 % (42.0-52.0) L Mean Corpuscular Volume 95 FL (80-99) Mean Corpuscular Hemoglobin 31.4 PG (27.0-31.0) H Mean Corpuscular Hemoglobin Concent 33.0 G/DL (32.0-36.0) Red Cell Distribution Width 13.7 % (11.6-14.8) Platelet Count 202 K/UL (150-450) Mean Platelet Volume 8.4 FL (6.5-10.1) Neutrophils (%) (Auto) % (45.0-75.0) Lymphocytes (%) (Auto) % (20.0-45.0) Monocytes (%) (Auto) % (1.0-10.0) Eosinophils (%) (Auto) % (0.0-3.0) Basophils (%) (Auto) % (0.0-2.0) Differential Total Cells Counted 100 Neutrophils % (Manual) 81 % (45-75) H Lymphocytes % (Manual) 13 % (20-45) L Monocytes % (Manual) 6 % (1-10) Eosinophils % (Manual) 0 % (0-3) Basophils % (Manual) 0 % (0-2) Band Neutrophils 0 % (0-8) Platelet Estimate Adequate Platelet Morphology Normal Hypochromasia 1+ Sodium Level 140 MMOL/L (136-145) Potassium Level 3.5 MMOL/L (3.5-5.1) Chloride Level 106 MMOL/L (98-107) Carbon Dioxide Level 29 MMOL/L (21-32) Anion Gap 5 mmol/L (5-15) Blood Urea Nitrogen 22 mg/dL (7-18) H Creatinine 0.8 MG/DL (0.55-1.30) Estimat Glomerular Filtration Rate > 60 mL/min (>60) Glucose Level 92 MG/DL (74-106) Calcium Level 8.1 MG/DL (8.5-10.1) L Plan Problems: (1) Cellulitis of lower extremity Assessment & Plan: Pt presented on admission with wound of unknown etiology R 1st metatarsal. Pt's hygiene is grossly neglected. To properly assess wound,pt's feet required extensive scrubbing to remove caked on dirt both feet. erythema and edema noted mild cellulitis Base of wound dorso/lateral R 1st metatarsalis darío with loose edges(L)2.3cm x (W)4cm. No exudate noted. NO erythema,swelling or changes in skin temp periwound. Second laceration noted to plantar-base of R 1st metatarsal(L)0.3cm x (W)1.2cm. Base of wound is darío. Edges are adherent to base of wound. No erythema swelling or changes in skin temp periwound. L foot 3rd and 4th metatarsals noted to have small ulcers that are dry . No surrounding erythema noted. Tx.Plan: Apply Betadine to dorsal and plantar wounds R 1st metatarsal. Cover with Gauze and wrap with Kerlix. Change every 3 days and prn. Swab ulcers dorsal L 3rd and 4th Metatarsals with Betadine Daily. Leave open to Air. turn q2h off load pressure nutritional optimization (2) Hypokalemia (3) Leukocytosis, unspecified (4) NSTEMI (non-ST elevated myocardial infarction) (5) Atrial fibrillation with RVR (6) Alcohol intoxication Dino Angelo Aug 06, 2020 11:19
[2020-08-06 12:00] VITALS: BP 92/54
[2020-08-06 16:00] VITALS: BP 91/58
--- NOTE | 2020-08-06 16:44 | General Progress Note ---
Subjective Allergies: Coded Allergies: No Known Allergies (Unverified , 10/24/15) Subjective fever last night more awake hypotensive but asymptomatic sob better anemia generalized weakness Objective Last 24 Hour Vital Signs Date Time Temp Pulse Resp B/P (MAP) Pulse Ox O2 Delivery O2 Flow Rate FiO2 08/06/20 12:00 86 08/06/20 12:00 83 92/54 08/06/20 12:00 98.0 83 17 92/54 (67) 93 08/06/20 09:10 120/71 08/06/20 09:00 Room Air 08/06/20 08:00 98.0 80 16 120/71 (87) 94 08/06/20 08:00 76 08/06/20 06:21 90 08/06/20 06:21 90 113/62 08/06/20 04:20 98.6 54 20 108/54 (72) 96 08/06/20 04:15 62 08/06/20 00:33 95 118/68 08/06/20 00:30 85 08/06/20 00:15 97.2 95 17 118/68 (85) 95 08/05/20 21:00 Room Air 08/05/20 20:00 83 08/05/20 19:45 98.0 77 17 114/66 (82) 96 08/05/20 17:34 97 123/69 Intake and Output 08/05/20 08/06/20 19:00 07:00 Intake Total 840 ml 500 ml Output Total 400 ml Balance 440 ml 500 ml Intake Oral 840 ml 500 ml Output Urine Total 400 ml Laboratory Tests 08/06/20 05:10: White Blood Count 12.4H, Red Blood Count 2.30L, Hemoglobin 7.2L, Hematocrit 21.9L, Mean Corpuscular Volume 95, Mean Corpuscular Hemoglobin 31.4H, Mean Corpuscular Hemoglobin Concent 33.0, Red Cell Distribution Width 13.7, Platelet Count 202, Mean Platelet Volume 8.4, Neutrophils (%) (Auto) , Lymphocytes (%) (Auto) , Monocytes (%) (Auto) , Eosinophils (%) (Auto) , Basophils (%) (Auto) , Differential Total Cells Counted 100, Neutrophils % (Manual) 81H, Lymphocytes % (Manual) 13L, Monocytes % (Manual) 6, Eosinophils % (Manual) 0, Basophils % (Manual) 0, Band Neutrophils 0, Platelet Estimate Adequate, Platelet Morphology Normal, Hypochromasia 1+, Sodium Level 140, Potassium Level 3.5, Chloride Level 106, Carbon Dioxide Level 29, Anion Gap 5, Blood Urea Nitrogen 22H, Creatinine 0.8, Estimat Glomerular Filtration Rate > 60, Glucose Level 92, Calcium Level 8.1L Height (Feet): 5 Height (Inches): 7.00 Weight (Pounds): 185 General Appearance: alert EENT: PERRL/EOMI Neck: supple Cardiovascular: regular rhythm Respiratory/Chest: lungs clear Abdomen: non tender Extremities: non-tender Assessment/Plan Status: stable Assessment/Plan: hypotension asymptomatic monitor , hold all bp meds sob better afib pna chf etoh abused pna hypokalemia anemia transfuse 1 u prbc generalized weakness pt/ot kcl replacement iv abx dw charge nurse Kadeem Luis MD Aug 06, 2020 16:44
--- NOTE | 2020-08-06 17:04 | Cardiology Progress Note ---
Assessment/Plan Status: stable, not improved Status Narrative 1. NSTEMI with troponin elevation - downtrended antiplatelets and AC per hematology due to thrombocytopenia denies chest pain 2. Afib with RVR Bb and digoxin for rate and rhythm control 3. Multifocal PNA and respiratory failure - improved, was on NRB now NC Leukocytosis h/o recent COVID-19, repeat swab pending 4. CHF acute on chronic systolic on diastolic HF, reduced EF 35-40%, s/p AICD IV Lasix for diuresis BNP improved 5. HTN and hypertensive urgency improved on multiple antihypertensives 6. Acute on chronic anemia Hgb 7.2 today 7. Psychiatric disorder and homelessness 8. NSVT 9. Thrombocytopenia - improved 10. Atherosclerosis - on statin 11. R foot cellulitis 12. h/o substance abuse Anemic today with Hgb 7.2 this morning, repeating now. SBP low normal at 92, pt feels ok. Hold ASA and plavix. Lovenox discontinued previously. Breathing easily. Subjective ROS Limited/Unobtainable: No Subjective No new complaints, lying flat, denies chest pain or worsening SOB Objective Last 24 Hour Vital Signs Date Time Temp Pulse Resp B/P (MAP) Pulse Ox O2 Delivery O2 Flow Rate FiO2 08/06/20 12:00 86 08/06/20 12:00 83 92/54 08/06/20 12:00 98.0 83 17 92/54 (67) 93 08/06/20 09:10 120/71 08/06/20 09:00 Room Air 08/06/20 08:00 98.0 80 16 120/71 (87) 94 08/06/20 08:00 76 08/06/20 06:21 90 08/06/20 06:21 90 113/62 08/06/20 04:20 98.6 54 20 108/54 (72) 96 08/06/20 04:15 62 08/06/20 00:33 95 118/68 08/06/20 00:30 85 08/06/20 00:15 97.2 95 17 118/68 (85) 95 08/05/20 21:00 Room Air 08/05/20 20:00 83 08/05/20 19:45 98.0 77 17 114/66 (82) 96 08/05/20 17:34 97 123/69 General Appearance: no apparent distress EENT: PERRL/EOMI Neck: supple, no JVD Rhythm: Afib Cardiovascular: normal rate Respiratory/Chest: normal breath sounds, no accessory muscle use Abdomen: soft Extremities: trace edema Neurologic: engine tester II-XII grossly normal Intake and Output 08/05/20 08/06/20 19:00 07:00 Intake Total 840 ml 500 ml Output Total 400 ml Balance 440 ml 500 ml Intake Oral 840 ml 500 ml Output Urine Total 400 ml Laboratory Tests Test 08/06/20 05:10 White Blood Count 12.4 K/UL (4.8-10.8) H Red Blood Count 2.30 M/UL (4.70-6.10) L Hemoglobin 7.2 G/DL (14.2-18.0) L Hematocrit 21.9 % (42.0-52.0) L Mean Corpuscular Volume 95 FL (80-99) Mean Corpuscular Hemoglobin 31.4 PG (27.0-31.0) H Mean Corpuscular Hemoglobin Concent 33.0 G/DL (32.0-36.0) Red Cell Distribution Width 13.7 % (11.6-14.8) Platelet Count 202 K/UL (150-450) Mean Platelet Volume 8.4 FL (6.5-10.1) Neutrophils (%) (Auto) % (45.0-75.0) Lymphocytes (%) (Auto) % (20.0-45.0) Monocytes (%) (Auto) % (1.0-10.0) Eosinophils (%) (Auto) % (0.0-3.0) Basophils (%) (Auto) % (0.0-2.0) Differential Total Cells Counted 100 Neutrophils % (Manual) 81 % (45-75) H Lymphocytes % (Manual) 13 % (20-45) L Monocytes % (Manual) 6 % (1-10) Eosinophils % (Manual) 0 % (0-3) Basophils % (Manual) 0 % (0-2) Band Neutrophils 0 % (0-8) Platelet Estimate Adequate Platelet Morphology Normal Hypochromasia 1+ Sodium Level 140 MMOL/L (136-145) Potassium Level 3.5 MMOL/L (3.5-5.1) Chloride Level 106 MMOL/L (98-107) Carbon Dioxide Level 29 MMOL/L (21-32) Anion Gap 5 mmol/L (5-15) Blood Urea Nitrogen 22 mg/dL (7-18) H Creatinine 0.8 MG/DL (0.55-1.30) Estimat Glomerular Filtration Rate > 60 mL/min (>60) Glucose Level 92 MG/DL (74-106) Calcium Level 8.1 MG/DL (8.5-10.1) L Microbiology Date/Time Source Procedure Growth Status 08/04/20 13:05 Blood Blood Culture - Preliminary NO GROWTH AFTER 24 HOURS Resulted Arlen Huggins PA-C Aug 06, 2020 17:04
--- NOTE | 2020-08-06 19:20 | NUR ---
NURSE NOTES: Received report from TITA Lin. Pt was asleep, easily arousable to name. Hebrew speaking, alert and oriented. No signs of acute distress noted. SpO2 95% on RA, breathing even and unlabored. R hand 20g and L wrist 20g intact and asymptomatic. R feet has optifoam for cellulitis. Side rails x2, call light within reach, bed alarmed, locked, and in lowest position. Will continue plan of care. Will continue to monitor.
--- NOTE | 2020-08-06 19:59 | NUR ---
NURSE NOTES: Called blood bank, blood not yet ready. Pt signed consent. Will continue plan of care.
[2020-08-06 20:00] VITALS: BP 99/61
--- NOTE | 2020-08-06 20:05 | NUR ---
NURSE NOTES: Started blood transfusion, witnessed by TITA Shah. Initial vitals taken. RN at bedside to ensure no adverse reactions.
--- NOTE | 2020-08-06 20:58 | NUR ---
NURSE NOTES: Venofer due at 2100 non-administered due to pt's upcoming PRBC infusion.
[2020-08-06] MEDS ORDERED: Iron Sucrose 100 MG in NS 55 ML IVPB SCH (21:00)
[2020-08-06] MEDS: Atorvastatin 80mg tab ORAL SCH (21:08)
--- NOTE | 2020-08-06 22:20 | NUR ---
NURSE NOTES: 15 minute vitals are stable, pt has no complaints. Will increase rate and continue to monitor pt.
[2020-08-07] VITALS: BP 109/72
--- NOTE | 2020-08-07 00:05 | NUR ---
NURSE NOTES: 1 PRBC transfused. No adverse reactions noted. Will continue plan of care. Will continue to monitor.
[2020-08-07] MEDS: Piperacillin/Tazobactam 3.375 GM in NS 110 ML IVPB SCH ×2 (00:12→05:13)
[2020-08-07 04:00] VITALS: BP 112/75
[2020-08-07] MEDS: Digoxin 0.125mg tab ORAL SCH (05:12)
--- NOTE | 2020-08-07 05:22 | NUR ---
NURSE NOTES: Administered 6am meds, changed pt's gowns and linens but refused to be cleaned because "I'm already clean right now." Will continue plan of care. Will continue to monitor.
--- NOTE | 2020-08-07 06:59 | NUR ---
NURSE HAND-OFF REPORT: Important Events on Shift:[1 PRBC transfused] Patient Status: [Stable] Diet: [Cardiac] Pending Orders: [NA] Pending Results/Labs:[BMP, CBC] Pending MD notification:[NA] Latest Vital Signs: Temperature 97.9 , Pulse 90 , B/P 108 /63 , Respiratory Rate 20 , O2 SAT 96 , Nasal Cannula, O2 Flow Rate 2.0 . Vital Sign Comment: [Stable] EKG Rhythm: SR w/ intermittent 1st Degree AVB Rhythm change?: N MD Notified?: Evin Gabriel MD Response: Latest Ryan Fall Score: 45 Fall Risk: High Risk Safety Measures: Call light Within Reach, Bed Alarm Zone 1, Side Rails Side Rails x3, Bed position Low and Locked. Fall Precautions: Yellow Socks Yellow Gown Door Sign Patient Fall Education Report given to [TITA Lin].
--- NOTE | 2020-08-07 07:40 | NUR ---
NURSE NOTES: Received patient report from TITA Lin. Patient is awake, alert and orientedx4, divehi speaking Able to understand and follow simple commands. on RA with saturation >93%. no signs of distress or pain. no signs/symptoms of cardio-respiratory distress noted. PIV is intact and patent. There are no signs of erythema, infiltration, or bleeding. Bed is in the lowest position, call light is within reach, siderails up x3. Will continue plan of care.
[2020-08-07 07:48] LABS: BASOPHILS % (AUTO) 0.9 % (0.0-2.0); HEMATOCRIT 26.1 % (42.0-52.0); HEMOGLOBIN 8.5 G/DL (14.2-18.0); LYMPHOCYTES % (AUTO) 14.4 % (20.0-45.0); MEAN CORPUSCULAR VOLUME 94 FL (80-99); MONOCYTES % (AUTO) 7.6 % (1.0-10.0); NEUTROPHILS % (AUTO) 76.1 % (45.0-75.0); PLATELET COUNT 245 K/UL (150-450); RED BLOOD COUNT 2.77 M/UL (4.70-6.10); RED CELL DISTRIBUTION WIDTH 14.2 % (11.6-14.8); WHITE BLOOD COUNT 12.2 K/UL (4.8-10.8)
[2020-08-07 07:59] LABS: ANION GAP 7 mmol/L (5-15); BLOOD UREA NITROGEN 12 mg/dL (7-18); CALCIUM 8.3 MG/DL (8.5-10.1); CARBON DIOXIDE 27 MMOL/L (21-32); CHLORIDE 103 MMOL/L (98-107); CREATININE 0.9 MG/DL (0.55-1.30); POTASSIUM 3.3 MMOL/L (3.5-5.1); SODIUM 137 MMOL/L (136-145)
[2020-08-07 08:00] VITALS: BP_SYST 115; BP_SYST 96; BP_DIAS 54; BP_DIAS 75
[2020-08-07] MEDS: Thiamine 100mg tab ORAL SCH (08:26)
[2020-08-07] MEDS: Losartan 50mg tab ORAL SCH (08:27)
--- NOTE | 2020-08-07 09:14 | Surgery Progress Note ---
Surgery Progress Note Subjective Symptoms: improved, pain absent, tolerating diet Objective Last 24 Hour Vital Signs Date Time Temp Pulse Resp B/P (MAP) Pulse Ox O2 Delivery O2 Flow Rate FiO2 08/07/20 08:27 115/75 08/07/20 08:00 99 08/07/20 05:13 90 108/63 08/07/20 05:12 90 08/07/20 04:00 91 08/07/20 04:00 97.9 95 20 112/75 (87) 96 08/07/20 00:00 88 08/07/20 00:00 90 109/72 08/07/20 00:00 98.4 90 20 109/72 (84) 96 08/06/20 21:00 Room Air 08/06/20 20:00 95 08/06/20 20:00 97.9 85 20 99/61 (74) 96 08/06/20 17:11 86 91/58 08/06/20 16:00 86 08/06/20 16:00 98.9 88 18 91/58 (69) 94 08/06/20 12:00 86 08/06/20 12:00 83 92/54 08/06/20 12:00 98.0 83 17 92/54 (67) 93 I&O Intake and Output 08/06/20 08/07/20 19:00 07:00 Intake Total 450 ml 150 ml Output Total 1200 ml Balance -750 ml 150 ml Intake Oral 450 ml 150 ml Output Urine Total 1200 ml Dressing: dry Wound: clean Cardiovascular: RSR Respiratory: clear Abdomen: soft, non-tender, present bowel sounds Extremities: no edema, no tenderness, no cyanosis Laboratory Tests Test 08/06/20 18:00 08/07/20 07:05 Plasma Hemoglobin Pending Pro-B-Type Natriuretic Peptide 875 pg/mL (0-125) H Digoxin Level 0.4 NG/ML (0.5-2.0) L White Blood Count 12.2 K/UL (4.8-10.8) H Red Blood Count 2.77 M/UL (4.70-6.10) L Hemoglobin 8.5 G/DL (14.2-18.0) L Hematocrit 26.1 % (42.0-52.0) L Mean Corpuscular Volume 94 FL (80-99) Mean Corpuscular Hemoglobin 30.7 PG (27.0-31.0) Mean Corpuscular Hemoglobin Concent 32.6 G/DL (32.0-36.0) Red Cell Distribution Width 14.2 % (11.6-14.8) Platelet Count 245 K/UL (150-450) Mean Platelet Volume 7.8 FL (6.5-10.1) Neutrophils (%) (Auto) 76.1 % (45.0-75.0) H Lymphocytes (%) (Auto) 14.4 % (20.0-45.0) L Monocytes (%) (Auto) 7.6 % (1.0-10.0) Eosinophils (%) (Auto) 1.0 % (0.0-3.0) Basophils (%) (Auto) 0.9 % (0.0-2.0) Sodium Level 137 MMOL/L (136-145) Potassium Level 3.3 MMOL/L (3.5-5.1) L Chloride Level 103 MMOL/L (98-107) Carbon Dioxide Level 27 MMOL/L (21-32) Anion Gap 7 mmol/L (5-15) Blood Urea Nitrogen 12 mg/dL (7-18) Creatinine 0.9 MG/DL (0.55-1.30) Estimat Glomerular Filtration Rate > 60 mL/min (>60) Glucose Level 114 MG/DL (74-106) H Calcium Level 8.3 MG/DL (8.5-10.1) L Plan Problems: (1) Cellulitis of lower extremity Assessment & Plan: Pt presented on admission with wound of unknown etiology R 1st metatarsal. Pt's hygiene is grossly neglected. To properly assess wound,pt's feet required extensive scrubbing to remove caked on dirt both feet. erythema and edema noted mild cellulitis Base of wound dorso/lateral R 1st metatarsalis darío with loose edges(L)2.3cm x (W)4cm. No exudate noted. NO erythema,swelling or changes in skin temp periwound. Second laceration noted to plantar-base of R 1st metatarsal(L)0.3cm x (W)1.2cm. Base of wound is darío. Edges are adherent to base of wound. No erythema swelling or changes in skin temp periwound. L foot 3rd and 4th metatarsals noted to have small ulcers that are dry . No surrounding erythema noted. Tx.Plan: Apply Betadine to dorsal and plantar wounds R 1st metatarsal. Cover with Gauze and wrap with Kerlix. Change every 3 days and prn. Swab ulcers dorsal L 3rd and 4th Metatarsals with Betadine Daily. Leave open to Air. turn q2h off load pressure nutritional optimization (2) Hypokalemia (3) Leukocytosis, unspecified (4) NSTEMI (non-ST elevated myocardial infarction) (5) Atrial fibrillation with RVR (6) Alcohol intoxication Dino Angelo Aug 07, 2020 09:14
--- NOTE | 2020-08-07 10:34 | Infectious Diseases Prog Note ---
Assessment/Plan Assessment/Plan A; 1. Pneumonia COVID-19 rapid & PCR : negative. 2. Non ST elevation Myocardial infarction. 3. Congestive heart failure. 4. Hypertension. 5. Atrial fibrillation 6. Leukocytosis improving PLAN: 1. Continue Zosyn X 3 days 2. Will f/u cultures & CBC Subjective ROS Limited/Unobtainable: Yes Allergies: Coded Allergies: No Known Allergies (Unverified , 10/24/15) Objective Last 24 Hour Vital Signs Date Time Temp Pulse Resp B/P (MAP) Pulse Ox O2 Delivery O2 Flow Rate FiO2 08/07/20 09:17 Room Air 08/07/20 08:27 115/75 08/07/20 08:00 99 08/07/20 08:00 97.8 113 20 96/54 (68) 100 08/07/20 08:00 98.7 113 20 115/75 (88) 100 08/07/20 05:13 90 108/63 08/07/20 05:12 90 08/07/20 04:00 91 08/07/20 04:00 97.9 95 20 112/75 (87) 96 08/07/20 00:00 88 08/07/20 00:00 90 109/72 08/07/20 00:00 98.4 90 20 109/72 (84) 96 08/06/20 21:00 Room Air 08/06/20 20:00 95 08/06/20 20:00 97.9 85 20 99/61 (74) 96 08/06/20 17:11 86 91/58 08/06/20 16:00 86 08/06/20 16:00 98.9 88 18 91/58 (69) 94 08/06/20 12:00 86 08/06/20 12:00 83 92/54 08/06/20 12:00 98.0 83 17 92/54 (67) 93 Height (Feet): 5 Height (Inches): 7.00 Weight (Pounds): 185 General Appearance: no acute distress HEENT: mucous membranes moist Respiratory/Chest: lungs clear Cardiovascular: normal rate Abdomen: soft, non tender Extremities: no edema Neurologic/Psychiatric: other - sleeping Microbiology Date/Time Source Procedure Growth Status 08/04/20 13:05 Blood Blood Culture - Preliminary NO GROWTH AFTER 48 HOURS Resulted Laboratory Tests Test 08/06/20 18:00 08/07/20 07:05 Plasma Hemoglobin Pending Pro-B-Type Natriuretic Peptide 875 pg/mL (0-125) H Digoxin Level 0.4 NG/ML (0.5-2.0) L White Blood Count 12.2 K/UL (4.8-10.8) H Red Blood Count 2.77 M/UL (4.70-6.10) L Hemoglobin 8.5 G/DL (14.2-18.0) L Hematocrit 26.1 % (42.0-52.0) L Mean Corpuscular Volume 94 FL (80-99) Mean Corpuscular Hemoglobin 30.7 PG (27.0-31.0) Mean Corpuscular Hemoglobin Concent 32.6 G/DL (32.0-36.0) Red Cell Distribution Width 14.2 % (11.6-14.8) Platelet Count 245 K/UL (150-450) Mean Platelet Volume 7.8 FL (6.5-10.1) Neutrophils (%) (Auto) 76.1 % (45.0-75.0) H Lymphocytes (%) (Auto) 14.4 % (20.0-45.0) L Monocytes (%) (Auto) 7.6 % (1.0-10.0) Eosinophils (%) (Auto) 1.0 % (0.0-3.0) Basophils (%) (Auto) 0.9 % (0.0-2.0) Sodium Level 137 MMOL/L (136-145) Potassium Level 3.3 MMOL/L (3.5-5.1) L Chloride Level 103 MMOL/L (98-107) Carbon Dioxide Level 27 MMOL/L (21-32) Anion Gap 7 mmol/L (5-15) Blood Urea Nitrogen 12 mg/dL (7-18) Creatinine 0.9 MG/DL (0.55-1.30) Estimat Glomerular Filtration Rate > 60 mL/min (>60) Glucose Level 114 MG/DL (74-106) H Calcium Level 8.3 MG/DL (8.5-10.1) L Current Medications Medications (Trade) Dose Ordered Sig/Evan Route PRN Reason Start Time Stop Time Status Last Admin Dose Admin Acetaminophen (Tylenol) 650 mg Q4H PRN ORAL Mild Pain (Pain Scale 1-3) 07/27/20 13:30 08/26/20 13:29 08/03/20 15:34 Acetaminophen (Tylenol) 650 mg Q6H PRN ORAL Temp >100.5 08/02/20 12:00 09/01/20 11:59 Atorvastatin Calcium (Lipitor) 80 mg BEDTIME ORAL 07/27/20 21:00 10/25/20 20:59 08/06/20 21:08 Clopidogrel Bisulfate (Plavix) 75 mg DAILY ORAL 08/07/20 09:00 09/06/20 08:59 08/07/20 08:29 Digoxin (Lanoxin) 0.125 mg DAILY@0600 ORAL 08/05/20 06:00 11/03/20 05:59 08/07/20 05:12 Furosemide (Lasix) 40 mg DAILY IV 07/27/20 16:15 08/26/20 16:14 08/07/20 09:45 Hydralazine HCl (Apresoline) 20 mg Q6H PRN IV For High Blood Pressure 07/27/20 16:15 10/25/20 16:14 07/27/20 16:18 Iron Sucrose 100 mg/Sodium Chloride 60 ml @ 240 mls/hr BEDTIME IVPB 08/06/20 21:00 08/10/20 21:14 Losartan Potassium (Cozaar) 50 mg DAILY ORAL 08/04/20 09:00 08/26/20 20:59 08/07/20 08:27 Metoprolol Tartrate (Lopressor) 50 mg EVERY 6 HOURS ORAL 08/01/20 00:00 10/25/20 16:14 08/06/20 06:21 Nitroglycerin (Ntg) 0.4 mg Q5M PRN SL Prn Chest Pain 07/27/20 16:15 08/26/20 16:14 07/27/20 16:24 Ondansetron HCl (Zofran) 4 mg Q4H PRN IVP Nausea & Vomiting 07/27/20 22:45 08/26/20 22:44 07/27/20 22:59 Piperacillin Sod/ Tazobactam Sod 3.375 gm/Sodium Chloride 110 ml @ 27.5 mls/hr EVERY 8 HOURS IVPB 08/04/20 12:00 08/09/20 11:59 08/07/20 05:13 Thiamine HCl (Vitamin B1) 100 mg DAILY ORAL 07/28/20 09:00 08/27/20 08:59 08/07/20 08:26 Patric Cleary MD Aug 07, 2020 10:34
--- NOTE | 2020-08-07 11:03 | NUR ---
DISCHARGE PLAN DISCHARGE DISCUSSED WITH DR CRUZ PLAN IS FOR PATIENT TO RETURN HOME WHERE HE LIVES WITH FRIENDS PLEASE READ [employer] NOTE FROM 07/28/20 Addendum: 08/07/20 at 1117 by BRITT MORRELL LVN LVN LONGTERM IS NOT AN OPTION FOR THIS PATIENT D/T INSURANCE
--- NOTE | 2020-08-07 11:19 | NUR ---
NURSE NOTES: Obtained new order for K+3.3. will cont to monitor.
--- NOTE | 2020-08-07 11:20 | Pulmonology Progress Note ---
Subjective ROS Limited/Unobtainable: Yes Interval Events: None new reported Constitutional: Denies: fever, chills HEENT: Repors: no symptoms Respiratory: Reports: shortness of breath Cardiovascular: Reports: no symptoms Gastrointestinal/Abdominal: Denies: nausea, vomiting, diarrhea Genitourinary: Reports: no symptoms Musculoskeletal: Denies: pain Allergies: Coded Allergies: No Known Allergies (Unverified , 10/24/15) All Systems: reviewed and negative except above Objective Last 24 Hour Vital Signs Date Time Temp Pulse Resp B/P (MAP) Pulse Ox O2 Delivery O2 Flow Rate FiO2 08/07/20 09:17 Room Air 08/07/20 08:27 115/75 08/07/20 08:00 99 08/07/20 08:00 97.8 113 20 96/54 (68) 100 08/07/20 08:00 98.7 113 20 115/75 (88) 100 08/07/20 05:13 90 108/63 08/07/20 05:12 90 08/07/20 04:00 91 08/07/20 04:00 97.9 95 20 112/75 (87) 96 08/07/20 00:00 88 08/07/20 00:00 90 109/72 08/07/20 00:00 98.4 90 20 109/72 (84) 96 08/06/20 21:00 Room Air 08/06/20 20:00 95 08/06/20 20:00 97.9 85 20 99/61 (74) 96 08/06/20 17:11 86 91/58 08/06/20 16:00 86 08/06/20 16:00 98.9 88 18 91/58 (69) 94 08/06/20 12:00 86 08/06/20 12:00 83 92/54 08/06/20 12:00 98.0 83 17 92/54 (67) 93 Intake and Output 08/06/20 08/07/20 19:00 07:00 Intake Total 450 ml 150 ml Output Total 1200 ml Balance -750 ml 150 ml Intake Oral 450 ml 150 ml Output Urine Total 1200 ml General Appearance: no acute distress HEENT: atraumatic Respiratory: crackles/rales Cardiovascular: normal rate, regular rhythm Abdomen: soft, non tender Microbiology Date/Time Source Procedure Growth Status 08/04/20 13:05 Blood Blood Culture - Preliminary NO GROWTH AFTER 48 HOURS Resulted Laboratory Tests 08/06/20 18:00: Plasma Hemoglobin [Pending], Pro-B-Type Natriuretic Peptide 875H, Digoxin Level 0.4L 08/07/20 07:05: White Blood Count 12.2H, Red Blood Count 2.77L, Hemoglobin 8.5L, Hematocrit 26.1L, Mean Corpuscular Volume 94, Mean Corpuscular Hemoglobin 30.7, Mean Corpuscular Hemoglobin Concent 32.6, Red Cell Distribution Width 14.2, Platelet Count 245, Mean Platelet Volume 7.8, Neutrophils (%) (Auto) 76.1H, Lymphocytes (%) (Auto) 14.4L, Monocytes (%) (Auto) 7.6, Eosinophils (%) (Auto) 1.0, Basophils (%) (Auto) 0.9, Sodium Level 137, Potassium Level 3.3L, Chloride Level 103, Carbon Dioxide Level 27, Anion Gap 7, Blood Urea Nitrogen 12, Creatinine 0.9, Estimat Glomerular Filtration Rate > 60, Glucose Level 114H, Calcium Level 8.3L Current Medications Medications (Trade) Dose Ordered Sig/Evan Route PRN Reason Start Time Stop Time Status Last Admin Dose Admin Acetaminophen (Tylenol) 650 mg Q4H PRN ORAL Mild Pain (Pain Scale 1-3) 07/27/20 13:30 08/26/20 13:29 08/03/20 15:34 Acetaminophen (Tylenol) 650 mg Q6H PRN ORAL Temp >100.5 08/02/20 12:00 09/01/20 11:59 Atorvastatin Calcium (Lipitor) 80 mg BEDTIME ORAL 07/27/20 21:00 10/25/20 20:59 08/06/20 21:08 Clopidogrel Bisulfate (Plavix) 75 mg DAILY ORAL 08/07/20 09:00 09/06/20 08:59 08/07/20 08:29 Digoxin (Lanoxin) 0.125 mg DAILY@0600 ORAL 08/05/20 06:00 11/03/20 05:59 08/07/20 05:12 Furosemide (Lasix) 40 mg DAILY IV 07/27/20 16:15 08/26/20 16:14 08/07/20 09:45 Hydralazine HCl (Apresoline) 20 mg Q6H PRN IV For High Blood Pressure 07/27/20 16:15 10/25/20 16:14 07/27/20 16:18 Iron Sucrose 100 mg/Sodium Chloride 60 ml @ 240 mls/hr BEDTIME IVPB 08/06/20 21:00 08/10/20 21:14 Losartan Potassium (Cozaar) 50 mg DAILY ORAL 08/04/20 09:00 08/26/20 20:59 08/07/20 08:27 Metoprolol Tartrate (Lopressor) 50 mg EVERY 6 HOURS ORAL 08/01/20 00:00 10/25/20 16:14 08/06/20 06:21 Nitroglycerin (Ntg) 0.4 mg Q5M PRN SL Prn Chest Pain 07/27/20 16:15 08/26/20 16:14 07/27/20 16:24 Ondansetron HCl (Zofran) 4 mg Q4H PRN IVP Nausea & Vomiting 07/27/20 22:45 08/26/20 22:44 07/27/20 22:59 Piperacillin Sod/ Tazobactam Sod 3.375 gm/Sodium Chloride 110 ml @ 27.5 mls/hr EVERY 8 HOURS IVPB 08/04/20 12:00 08/09/20 11:59 08/07/20 05:13 Potassium Chloride (K-Dur) 20 meq ONCE ORAL 08/07/20 10:45 08/07/20 16:00 Thiamine HCl (Vitamin B1) 100 mg DAILY ORAL 07/28/20 09:00 08/27/20 08:59 08/07/20 08:26 Assessment/Plan Assessment/Plan 1. High D-dimer. - No evidence of pulmonary embolism on CTA chest - f/u D-dimer (08/03) trending down 2. s/p AICD. 3. CHF. 4. CAD. 5. Leukocytosis; improving - ID following -On antibiotics - f/u BCx negative 6. Hypokalemia, resolved 7. Thrombocytopenia; improved - heme following 8. COVID-19 negative - Ag neg (07/27) - PCR neg (07/28) Patient needs rate control with digoxin. Cardiology is following. Beta-anay has also been started. The patient has also received amiodarone. Continue medications. Diurese as needed. No indication for steroids. Continue supportive care and p.r.n. medications. Noted plan for discharge Medically stable for discharge from pulmonary standpoint The care of this patient was discussed with my supervising physician Time spent for this encounter was approximately 31 minutes James Fernandes Aug 07, 2020 11:20
[2020-08-07 11:50] VITALS: BP 113/73
[2020-08-07] MEDS ORDERED: ATORVASTATIN CA80 MG ORAL (11:52)
[2020-08-07] MEDS ORDERED: PLAVIX75 MG ORAL (11:59)
[2020-08-07] MEDS ORDERED: DIGOXIN0.125 MG/2 ORAL (12:00)
[2020-08-07 12:01] VITALS: BP 113/73
[2020-08-07] MEDS ORDERED: FUROSEMIDE40 MG ORAL (12:01)
[2020-08-07] MEDS ORDERED: POTASSIUM CHLO20 ME1 ORAL (12:01)
[2020-08-07] MEDS ORDERED: METOPROLOL TART25 MG ORAL (12:05)
--- NOTE | 2020-08-07 15:25 | NUR ---
NURSE NOTES: DISCHARGE PATIENT TO VERIFIED ADDRESS ON THE FACESHEET. CALLED NEXT OF [facility] AND PER NEPHEW HE DOES NOT KNOW ANYONE BY [facility]. PATIENT IS A/A/OX4. PROVIDED A TAXI VOUCHER FOR TRANSPORTATION TO HOME. NEW RX WAS CALLED TO [facility]IENT[facility]. PROVIDED A WALKER UPON DISCHARGE. SEEN BY PT. WOUND PHOTO TAKEN AND UPLOADED. WOUND CARE TREATMENT RENDERED. REMOVED [employer]. REMOVED PIV. IN STABLE CONDITION. NO ACUTE RESP DISTRESS NOTED. PERSONAL BELONGINGS NOTED. DISCHARGE INSTRUCTIONS GIVEN.
--- NOTE | 2020-08-07 16:03 | NUR ---
PT Note PT medhat completed, treatment initiated. Patient has muscle weakness, specially in BLE's with c/o fatigue and dizziness during gait training. Patient needs PT services to increase his muscle strength and balance to improve his safety in mobility and gait to enable him to return home. Addendum: 08/07/20 at 1604 by ALEE ALMONTE PT Amended: Links added.
[2020-08-07] MEDS ORDERED: NS 275ml ONE (17:03)
[2020-08-07] MEDS ORDERED: Tubing IV Secondary IV ONE (17:03)
[2020-08-07] MEDS ORDERED: Tubing IV Blood Pump IV ONE (17:03)
--- NOTE | 2020-08-09 10:20 | Discharge Summary ---
Discharge Summary Discharge Summary _ Date of admission: 07/27/2020 Date of discharge: 08/07/[address] Luis History of Present Illness and Brief Hospital Course Mr. Celeste is a 54-year-old male with past medical history of hypertension, diabetes mellitus, and pacemaker implant, who presented to ED for evaluation of chest pain and palpitations x1 day. The EKG was notable for atrial fibrillation with rapid ventricular response with rates of 140s and occasional PVC and PAC. Chest x-ray revealed poor inspiratory effort with possible venous congestion. Urine toxicology screening was positive for benzodiazepines. Patient also had elevated troponin. Patient clinically improved in the ER but was admitted to the hospital for further work-up and observation. Patient was started on a beta-anay and digoxin for rate and rhythm control of atrial fibrillation with RVR. Given the elevated D-dimer, patient was evaluated with CT angiogram of the chest which revealed no evidence of pulmonary embolism. Patient was started on Lovenox for DVT prophylaxis. Lovenox was later held due to thrombocytopenia. A follow-up D-dimer was trending down. Given the recent history of pneumonia, patient was started on empiric antibiotics. Patient was started on nonrebreather mask given the acute respiratory failure. Patient was able to be weaned off of oxygen eventually and remained stable on room air. Patient tested negative for COVID-19 with a rapid swab which was again confirmed with a negative PCR. Patient also presented with leukocytosis. Patient was started on antibiotics. A follow-up blood cultures was negative for growth. Patient was continued on Lasix for diuresis given the findings consistent with CHF. Ejection fraction was 35-40% on echocardiogram. BNP subsequently improved with Lasix. Patient was found to be anemic during the hospitalization. Patient was transfused and H&H improved and remained stable. Patient was found to have low iron level which was replaced with IV iron. Patient also presented with a wound of unknown etiology on the right first metatarsal, and left foot third and fourth metatarsals. It appeared that patient's hygiene was grossly neglected. Patient's feet required extensive scrubbing to remove dirt. Erythema and edema with signs of mild cellulitis were noted on evaluation. Wound care was started. Throughout his hospitalization, patient was treated for pneumonia, cellulitis of feet, anemia, and leukocytosis. Patient was medically stable for discharge and was discharged home on 08/07/2020. Consultants: Cardiology AUDREY Meredith Surgery Dr. Angelo Pulmonology Dr. Sheridan Infectious disease Dr. Guajardo Discharge Condition Improved and stable Final diagnoses NSTEMI with troponin elevation Atrial fibrillation with RVR Multifocal pneumonia Acute respiratory distress Acute on chronic systolic and diastolic heart failure, EF 35-40%, s/p AICD Hypertension Hypertensive urgency Acute on chronic anemia NSVT Thrombocytopenia Atherosclerosis Bilateral foot cellulitis History of substance abuse Iron deficiency anemia Thrombocytopenia Hypercoagulable disorder due to atrial fibrillation Leukocytosis Hypokalemia I have been assigned to dictate discharge summary for this account. James Fernandes Aug 09, 2020 10:20
== END 2020-08-07 17:04 | disposition home or self-care (01) | DRG 190 ==
LOC: EDBD 07:07 → EMR 08:36 → 2W 08:43 → EDBEDREQSVC 09:50 → EDBEDREQ 10:55 → ICU 21:28 → 2W 07-28 23:17 → 2E 07-30 00:12
PROC: 30233N1 Transfusion of Nonautologous Red Blood Cells into Peripheral Vein, Percutaneous Approach (ICD-10-PCS; principal; 2020-08-06)
DX: I21.4 Non-ST elevation (NSTEMI) myocardial infarction (principal); I11.0 Hypertensive heart disease with heart failure; J18.9 Pneumonia, unspecified organism; E87.6 Hypokalemia; I16.0 Hypertensive urgency; I48.91 Unspecified atrial fibrillation; Z59.0 Homelessness; I50.43 Acute on chronic combined systolic (congestive) and diastolic (congestive) heart failure; E11.9 Type 2 diabetes mellitus without complications; J96.00 Acute respiratory failure, unspecified whether with hypoxia or hypercapnia; L03.116 Cellulitis of left lower limb; L03.115 Cellulitis of right lower limb; I47.2 Ventricular tachycardia; D50.9 Iron deficiency anemia, unspecified; Z95.810 Presence of automatic (implantable) cardiac defibrillator; I95.9 Hypotension, unspecified; I25.10 Atherosclerotic heart disease of native coronary artery without angina pectoris; Z79.82 Long term (current) use of aspirin; F10.129 Alcohol abuse with intoxication, unspecified; D69.6 Thrombocytopenia, unspecified; Z79.02 Long term (current) use of antithrombotics/antiplatelets
CPT/HCPCS: 36415; 71045; 71275; 80048; 80053; 80162; 80307; 81003; 82248; 82270; 82550; 82728; 82746; 82803; 82962; 83051; 83540; 83550; 83880; 84484; 85007; 85025; 85379; 85610; 85730; 86140; 86703; 86705; 86709; 86803; 86850; 86900; 86901; 86920; 87040; 87340; 93005; 93306; 94640; 96365; 96367; 96375; 99291; G0480; J2405; J8499